=== PATIENT | male | born 1945 | race Hispanic/Latino ===

== ENCOUNTER 2019-07-20 20:35 | Emergency (ER) | payer OTHER ==
[2019-07-20] MEDS ORDERED: NA CHLORIDE 0.9% 1,000 ML ONE ×2 (20:42→21:57)
[2019-07-20 20:56] LABS: Absolute Lymphocytes (CBC) 2.1 K/uL (0.7-4.9); Basophils % 0.4 % (0-1.3); Hematocrit 46.3 % (39.6-49.0); Lymphocytes % 24.2 % (15.3-44.8); MPV 8.8 fL (7.6-11.3); RBC Red Blood Cell Count 4.98 M/uL (4.33-5.43)
[2019-07-20 21:15] LABS: Albumin 4.4 g/dL (3.4-5.0); Bilirubin Total 0.5 mg/dL (0.2-1.0); Potassium 3.3 mmol/L (3.5-5.1); Protein, Total 8.1 g/dL (6.4-8.2)
--- NOTE | 2019-07-20 21:41 | RAD REPORT ---
EXAM DESCRIPTION: US - Extremity Venous Uni Ltd - 07/20/2019 9:35 pm CLINICAL HISTORY: PAIN Leg swelling and edema. COMPARISON: No comparisons FINDINGS: Left lower extremity venous system was interrogated with Doppler technique. Normal flow, c ompressibility and augmentation was noted. There is no DVT present. IMPRESSION: No evidence of left lower extremity deep venous thrombosis.
[2019-07-20] MEDS ORDERED: POTASSIUM CL SA 10 MEQ TAB PO ONE (21:57)
[2019-07-20 23:45] LABS: Potassium 4.1 mmol/L (3.5-5.1)
--- NOTE | 2019-07-21 00:25 | ER ---
Nurse's Notes [facility] Name: Apple Howe Age: 73 yrs Sex: Male : 1945 Arrival Date: 07/20/2019 Time: 20:37 Bed 7 Private MD: Diagnosis: Dehydration;Leg cramps;Hypokalemia Presentation: 07/20 20:39 Presenting complaint: Patient states: he mowed his yard from 0900 to 1400 with out ak1 drinking any water. pt c/o upper left leg pain. Transition of care: patient was not received from another setting of care. Onset of symptoms is unknown. Risk Assessment: Do you want to hurt yourself or someone else? Patient reports no desire to harm self or others. Initial Sepsis Screen: Does the patient meet any 2 criteria? No. Patient's initial sepsis screen is negative. Does the patient have a suspected source of infection? No. Patient's initial sepsis screen is negative. Care prior to arrival: None. 20:39 Method Of Arrival: EMS: [facility] ak1 20:39 Acuity: CAROLE 3 ak1 Triage Assessment: 20:39 General: Appears in no apparent distress. Behavior is calm, cooperative. Pain: ak1 Complains of pain in left hamstring. EENT: No signs and/or symptoms were reported regarding the EENT system. 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 Gait is steady, Speech is normal. Cardiovascular: No deficits noted. Respiratory: No deficits noted. GI: No signs and/or symptoms were reported involving the gastrointestinal system. : No signs and/or symptoms were reported regarding the genitourinary system. Derm: No signs and/or symptoms reported regarding the dermatologic system. Musculoskeletal: No signs and/or symptoms reported regarding the musculoskeletal system. Historical: - Allergies: 20:39 No Known Allergies; ak1 - Home Meds: 20:39 None [Active]; ak1 - PMHx: 20:39 Hypertension; ak1 - PSHx: 20:39 Cholecystectomy; Appendectomy; ak1 - Immunization history:: Adult Immunizations unknown. - Social history:: Smoking status: unknown. - Ebola Screening: : No symptoms or risks identified at this time. Screenin:43 Abuse screen: Denies threats or abuse. Denies injuries from another. Nutritional ak1 screening: No deficits noted. Tuberculosis screening: No symptoms or risk factors identified. Fall Risk None identified. Assessment: 21:18 Reassessment: Patient appears in no apparent distress at this time. No changes from ak1 previously documented assessment. Patient and/or family updated on plan of care and expected duration. Pain level reassessed. Patient is alert, oriented x 3, equal unlabored respirations, skin warm/dry/pink. US finished imaging. pt and family informed that pt's called. 23:00 Reassessment: Patient appears in no apparent distress at this time. Patient is alert, rr5 oriented x 3, equal unlabored respirations, skin warm/dry/pink. second liter of IV fluid consumed. repeat BMP extracted. Vital Signs: 20:38 BP 191 / 99; Pulse 95; Resp 18; Temp 97.9; Pulse Ox 99% on R/A; Weight 72.57 kg (R); ak1 Height 5 ft. 3 in. (160.02 cm) (R); Pain 10/10; 21:23 BP 174 / 96; Pulse 100; Resp 18; Pulse Ox 99% on R/A; ak1 22:59 BP 164 / 93; Pulse 99; Resp 17; Pulse Ox 97% ; rr5 07/21 00:25 BP 153 / 88; Pulse 99; Resp 18; Pulse Ox 99% on R/A; ak1 07/20 20:38 Body Mass Index 28.34 (72.57 kg, 160.02 cm) ak1 ED Course: 07/20 20:37 Patient arrived in ED. ak1 20:38 Curry Man MD is Attending Physician. tw4 20:38 Arm band placed on Patient placed in an exam room, on a stretcher, on pulse oximetry, ak1 Patient notified of wait time. 20:41 Triage completed. ak1 20:43 Patient has correct armband on for positive identification. Bed in low position. Call ak1 light in reach. Side rails up X 1. Pulse ox on. NIBP on. 20:44 Fanny Rodriguez, RN is Primary Nurse. ak1 20:44 Inserted saline lock: 20 gauge in right forearm, using aseptic technique. Blood oe collected. 21:36 Extremity Venous Uni Ltd US In Process Unspecified. EDMS 21:37 Ultrasound completed. Patient tolerated well. sg3 07/21 00:26 No provider procedures requiring assistance completed. ak1 00:30 IV discontinued, intact, bleeding controlled, No redness/swelling at site. Pressure ak1 dressing applied. Administered Medications: 07/20 20:44 Drug: NS 0.9% 1000 ml Route: IV; Rate: 1 bolus; Site: right forearm; rr5 21:40 Follow up: IV Status: Completed infusion ak1 21:59 Drug: NS 0.9% 1000 ml Route: IV; Rate: 1 bolus; Site: right forearm; rr5 23:42 Follow up: IV Status: Completed infusion; IV Intake: 1000ml ak1 22:00 Not Given (Other Intervention Used): Potassium Chloride 40 mEq PO once rr5 22:00 Drug: Potassium Chloride 40 mEq Route: PO; rr5 23:40 Follow up: Response: No adverse reaction ak1 Intake: 23:42 IV: 1000ml; Total: 1000ml. ak1 Outcome: 07/21 00:23 Discharge ordered by . tw4 00:30 Discharged to home ambulatory, with family. ak1 00:30 Condition: improved 00:30 Discharge instructions given to patient, Instructed on discharge instructions, follow up and referral plans. Demonstrated understanding of instructions, follow-up care. 00:39 Patient left the ED. ak1 Signatures: Dispatcher [employer] EDMS Fanny Rodriguez, RN RN ak1 Jay Jay Leone Sarah sg3 Curry Man MD MD tw4 Chace Gilliam, RN RN rr5
--- NOTE | 2019-07-21 00:27 | EDPHYS ---
Physician Documentation [facility] Name: Apple Howe Age: 73 yrs Sex: Male : 1945 Arrival Date: 07/20/2019 Time: 20:37 Bed 7 Private MD: ED Physician Curry Man HPI: 07/20 21:48 This 73 yrs old Male presents to ER via EMS with complaints of Leg Pain. tw4 21:48 The patient presents with pain, that is acute. The complaints affect the left tw4 quadriceps, left knee and left lopez. Context: The problem was sustained at home. Onset: The symptoms/episode began/occurred today. Modifying factors: The symptoms are alleviated by nothing. the symptoms are aggravated by nothing. Associated signs and symptoms: The patient has no apparent associated signs or symptoms. Treatment prior to arrival includes: no previous treatment. Severity of symptoms: At their worst the symptoms were moderate, in the emergency department the symptoms are unchanged. The patient has not experienced similar symptoms in the past. Historical: - Allergies: 20:39 No Known Allergies; ak1 - Home Meds: 20:39 None [Active]; ak1 - PMHx: 20:39 Hypertension; ak1 - PSHx: 20:39 Cholecystectomy; Appendectomy; ak1 - Immunization history:: Adult Immunizations unknown. - Social history:: Smoking status: unknown. - Ebola Screening: : No symptoms or risks identified at this time. ROS: 21:48 Constitutional: Negative for fever, chills, and weight loss, Eyes: Negative for injury, tw4 pain, redness, and discharge, Cardiovascular: Negative for chest pain, palpitations, and edema, Respiratory: Negative for shortness of breath, cough, wheezing, and pleuritic chest pain, Abdomen/GI: Negative for abdominal pain, nausea, vomiting, diarrhea, and constipation. 21:48 MS/extremity: Positive for pain, Negative for injury or acute deformity, abrasion, bite, contusion, decreased range of motion, deformity, ecchymosis, erythema, laceration, paresthesias, puncture, rash. Exam: 21:48 Constitutional: This is a well developed, well nourished patient who is awake, alert, tw4 and in no acute distress. Head/Face: Normocephalic, atraumatic. Chest/axilla: Normal chest wall appearance and motion. Nontender with no deformity. No lesions are appreciated. Cardiovascular: Regular rate and rhythm with a normal S1 and S2. No gallops, murmurs, or rubs. Normal PMI, no JVD. No pulse deficits. Respiratory: Lungs have equal breath sounds bilaterally, clear to auscultation and percussion. No rales, rhonchi or wheezes noted. No increased work of breathing, no retractions or nasal flaring. Abdomen/GI: Soft, non-tender, with normal bowel sounds. No distension or tympany. No guarding or rebound. No evidence of tenderness throughout. Back: No spinal tenderness. No costovertebral tenderness. Full range of motion. MS/ Extremity: Pulses equal, no cyanosis. Neurovascular intact. Full, normal range of motion. Neuro: Awake and alert, GCS 15, oriented to person, place, time, and situation. Cranial nerves II-XII grossly intact. Motor strength 5/5 in all extremities. Sensory grossly intact. Cerebellar exam normal. Normal gait. Vital Signs: 20:38 BP 191 / 99; Pulse 95; Resp 18; Temp 97.9; Pulse Ox 99% on R/A; Weight 72.57 kg (R); ak1 Height 5 ft. 3 in. (160.02 cm) (R); Pain 10/10; 21:23 BP 174 / 96; Pulse 100; Resp 18; Pulse Ox 99% on R/A; ak1 22:59 BP 164 / 93; Pulse 99; Resp 17; Pulse Ox 97% ; rr5 07/21 00:25 BP 153 / 88; Pulse 99; Resp 18; Pulse Ox 99% on R/A; ak1 07/20 20:38 Body Mass Index 28.34 (72.57 kg, 160.02 cm) ak1 MDM: 07/20 20:38 Patient medically screened. tw4 21:48 Differential diagnosis: dislocation, open fracture. Data reviewed: vital signs, nurses tw4 notes, lab test result(s), CBC, white blood cell count, hemoglobin, hematocrit, platelets, electrolytes, sodium, potassium, chloride, serum bicarbonate, BUN, creatinine, serum glucose, radiologic studies, ultrasound. Data interpreted: Pulse oximetry: Interpretation: normal. Counseling: I had a detailed discussion with the patient and/or guardian regarding: the historical points, exam findings, and any diagnostic results supporting the discharge/admit diagnosis, lab results, radiology results. Special discussion: I discussed with the patient/guardian in detail that at this point there is no indication for admission to the hospital. It is understood, however, that if the symptoms persist or worsen the patient needs to return immediately for re-evaluation. 07/20 20:39 Order name: CBC with Diff; Complete Time: 21:51 tw4 07/20 21:51 Interpretation: Within normal limits. 07/20 20:39 Order name: CMP; Complete Time: 21:51 tw4 07/20 21:51 Interpretation: Normal except: K 3.3; GLUC 166; BUN 24; CRE 1.53; GFR 45. tw07/20 20:39 Order name: Extremity Venous Uni Ltd US; Complete Time: 00:18 tw4 07/21 00:18 Interpretation: No acute disease. 07/20 21:52 Order name: BMP: repeat after second bolus; Complete Time: 00:18 07/21 00:18 Interpretation: Normal except: BUN 22; GLUC 240; GFR 56. Administered Medications: 20:44 Drug: NS 0.9% 1000 ml Route: IV; Rate: 1 bolus; Site: right forearm; rr5 21:40 Follow up: IV Status: Completed infusion ak1 21:59 Drug: NS 0.9% 1000 ml Route: IV; Rate: 1 bolus; Site: right forearm; rr5 23:42 Follow up: IV Status: Completed infusion; IV Intake: 1000ml ak1 22:00 Not Given (Other Intervention Used): Potassium Chloride 40 mEq PO once rr5 22:00 Drug: Potassium Chloride 40 mEq Route: PO; rr5 23:40 Follow up: Response: No adverse reaction ak1 Disposition: 07/21/19 00:23 Discharged to Home. Impression: Dehydration, Leg cramps, Hypokalemia. - Condition is Stable. - Discharge Instructions: Dehydration, Elderly, Potassium Content of Foods, Leg Cramps, Hypokalemia, Rehydration, Elderly. - Medication Reconciliation Form, Thank You Letter, Antibiotic Education, Prescription Opioid Use form. - Follow up: Private Physician; When: Upon discharge from the Emergency Department; Reason: If symptoms return, Recheck today's complaints, Continuance of care. - Problem is new. - Symptoms have improved. Signatures: Dispatcher [employer] EDMS Fanny Rodriguez, RN RN ak1 Curry Man MD MD tw4 Chace Gilliam RN RN rr5 Corrections: (The following items were deleted from the chart) 07/21 00:23 00:23 07/21/2019 00:23 Discharged to Home. Impression: Dehydration; Leg cramps. tw4 Condition is Stable. Forms are Medication Reconciliation Form, Thank You Letter, Antibiotic Education, Prescription Opioid Use. Follow up: Private Physician; When: Upon discharge from the Emergency Department; Reason: If symptoms return, Recheck today's complaints, Continuance of care. Problem is new. Symptoms have improved. tw4 00:39 00:23 07/21/2019 00:23 Discharged to Home. Impression: Dehydration; Leg cramps; ak1 Hypokalemia. Condition is Stable. Forms are Medication Reconciliation Form, Thank You Letter, Antibiotic Education, Prescription Opioid Use. Follow up: Private Physician; When: Upon discharge from the Emergency Department; Reason: If symptoms return, Recheck today's complaints, Continuance of care. Problem is new. Symptoms have improved. tw4
[2019-07-21 01:25] VITALS: TEMP 97.9
[2019-07-21 01:29] VITALS: BP 153/88; O2SAT 99
== END 2019-07-21 00:39 | disposition home or self-care (01) ==
LOC: EDSEX 20:35 → ER 20:35
DX: E86.0 Dehydration (principal); E87.6 Hypokalemia; I10 Essential (primary) hypertension
CPT/HCPCS: 96361; 85025; 80048; 36415; 80053; 93971; 96360; 99284; J7030 ×2

== ENCOUNTER 2019-07-27 09:50 | Emergency (ER) | payer OTHER ==
--- NOTE | 2019-07-27 10:29 | ER ---
Nurse's Notes [facility] Name: Apple Howe Age: 73 yrs Sex: Male : 1945 Arrival Date: 07/27/2019 Time: 10:02 Bed 5 Private MD: Diagnosis: Pain in left leg Presentation: 07/27 10:10 Presenting complaint: Patient states: was seen here last week for the leg cramps and dx sv with dehydration and low potassium, pt reports the right leg improved but is still having leg cramps to the left calf. Transition of care: patient was not received from another setting of care. Onset of symptoms was June 2019. Risk Assessment: Do you want to hurt yourself or someone else? Patient reports no desire to harm self or others. Initial Sepsis Screen: Does the patient meet any 2 criteria? No. Patient's initial sepsis screen is negative. Does the patient have a suspected source of infection? No. Patient's initial sepsis screen is negative. Care prior to arrival: None. 10:10 Method Of Arrival: Ambulatory sv 10:10 Acuity: CAROLE 3 sv Triage Assessment: 10:12 General: Appears in no apparent distress. uncomfortable, well groomed, well developed, sv Behavior is calm, cooperative, appropriate for age. Pain: Complains of pain in left calf and left lopez. Neuro: Level of Consciousness is awake, alert, obeys commands, Oriented to person, place, time, situation, Moves all extremities. Full function Gait is steady. Respiratory: Airway is patent Respiratory effort is even, unlabored, Respiratory pattern is regular, symmetrical. Derm: Skin is pink, warm \T\ dry. Historical: - Allergies: 10:11 No Known Allergies; sv - PMHx: 10:11 Hypertension; sv - PSHx: 10:11 Cholecystectomy; Appendectomy; sv - Immunization history:: Adult Immunizations up to date. - Social history:: Smoking status: Patient/guardian denies using tobacco. - Ebola Screening: : No symptoms or risks identified at this time. - Family history:: not pertinent. Screenin:19 Abuse screen: Denies threats or abuse. Denies injuries from another. Nutritional sv screening: No deficits noted. Tuberculosis screening: No symptoms or risk factors identified. Fall Risk None identified. Vital Signs: 10:12 BP 149 / 84; Pulse 97; Resp 16; Temp 98.2; Pulse Ox 97% ; Weight 72.57 kg; Height 5 ft. sv 3 in. (160.02 cm); 10:12 Body Mass Index 28.34 (72.57 kg, 160.02 cm) sv ED Course: 10:02 Patient arrived in ED. am2 10:04 Carlos Enrique Sainz MD is Attending Physician. kennedy 10:06 Ольга Grewal RN is Primary Nurse. sv 10:11 Triage completed. sv 10:12 Arm band placed on. sv 10:19 ED physician to see patient. sv 10:19 Patient has correct armband on for positive identification. Placed in gown. Bed in low sv position. Call light in reach. Pulse ox on. NIBP on. Door closed. Head of bed elevated. Administered Medications: No medications were administered Outcome: 10:27 Discharge ordered by . kennedy 10:46 Patient left the ED. sv Signatures: Ольга Grewal RN RN Carlos Enrique Sainz MD MD cha Moreno, Amanda am2
--- NOTE | 2019-07-27 10:29 | EDPHYS ---
Physician Documentation [facility] Name: Apple Howe Age: 73 yrs Sex: Male : 1945 Arrival Date: 07/27/2019 Time: 10:02 Bed 5 Private MD: ED Physician Carlos Enrique Sainz HPI: 07/27 10:23 This 73 yrs old Male presents to ER via Ambulatory with complaints of Leg Pain.kennedy 10:23 The patient presents with pain. The complaints affect the posterior aspect of right kennedy knee. Context: The problem was sustained at an unknown site. Onset: The symptoms/episode began/occurred 1 week(s) ago. Modifying factors: The symptoms are alleviated by nothing. the symptoms are aggravated by nothing. Associated signs and symptoms: The patient has no apparent associated signs or symptoms. Treatment prior to arrival includes: no previous treatment. Historical: - Allergies: 10:11 No Known Allergies; sv - PMHx: 10:11 Hypertension; sv - PSHx: 10:11 Cholecystectomy; Appendectomy; sv - Immunization history:: Adult Immunizations up to date. - Social history:: Smoking status: Patient/guardian denies using tobacco. - Ebola Screening: : No symptoms or risks identified at this time. - Family history:: not pertinent. ROS: 10:23 Constitutional: Negative for fever, chills, and weight loss, Eyes: Negative for injury, kennedy pain, redness, and discharge, ENT: Negative for injury, pain, and discharge, Neck: Negative for injury, pain, and swelling, Cardiovascular: Negative for chest pain, palpitations, and edema, Respiratory: Negative for shortness of breath, cough, wheezing, and pleuritic chest pain, Abdomen/GI: Negative for abdominal pain, nausea, vomiting, diarrhea, and constipation, Back: Negative for injury and pain, : Negative for injury, bleeding, discharge, and swelling, Skin: Negative for injury, rash, and discoloration, Neuro: Negative for headache, weakness, numbness, tingling, and seizure, Psych: Negative for depression, anxiety, suicide ideation, homicidal ideation, and hallucinations, Allergy/Immunology: Negative for hives, rash, and allergies, Endocrine: Negative for neck swelling, polydipsia, polyuria, polyphagia, and marked weight changes, Hematologic/Lymphatic: Negative for swollen nodes, abnormal bleeding, and unusual bruising. 10:23 MS/extremity: Positive for pain, of the left leg. Exam: 10:23 Constitutional: This is a well developed, well nourished patient who is awake, alert, kennedy and in no acute distress. Head/Face: Normocephalic, atraumatic. Eyes: Pupils equal round and reactive to light, extra-ocular motions intact. Lids and lashes normal. Conjunctiva and sclera are non-icteric and not injected. Cornea within normal limits. Periorbital areas with no swelling, redness, or edema. ENT: Nares patent. No nasal discharge, no septal abnormalities noted. Tympanic membranes are normal and external auditory canals are clear. Oropharynx with no redness, swelling, or masses, exudates, or evidence of obstruction, uvula midline. Mucous membranes moist. Neck: Trachea midline, no thyromegaly or masses palpated, and no cervical lymphadenopathy. Supple, full range of motion without nuchal rigidity, or vertebral point tenderness. No Meningismus. Chest/axilla: Normal chest wall appearance and motion. Nontender with no deformity. No lesions are appreciated. Cardiovascular: Regular rate and rhythm with a normal S1 and S2. No gallops, murmurs, or rubs. Normal PMI, no JVD. No pulse deficits. Respiratory: Lungs have equal breath sounds bilaterally, clear to auscultation and percussion. No rales, rhonchi or wheezes noted. No increased work of breathing, no retractions or nasal flaring. Abdomen/GI: Soft, non-tender, with normal bowel sounds. No distension or tympany. No guarding or rebound. No evidence of tenderness throughout. Back: No spinal tenderness. No costovertebral tenderness. Full range of motion. Skin: Warm, dry with normal turgor. Normal color with no rashes, no lesions, and no evidence of cellulitis. Neuro: Awake and alert, GCS 15, oriented to person, place, time, and situation. Cranial nerves II-XII grossly intact. Motor strength 5/5 in all extremities. Sensory grossly intact. Cerebellar exam normal. Normal gait. Psych: Awake, alert, with orientation to person, place and time. Behavior, mood, and affect are within normal limits. 10:23 Musculoskeletal/extremity: Extremities: all appear grossly normal, with no appreciated pain with palpation, ROM: intact in all extremities, full active range of motion, full passive range of motion, Circulation is intact in all extremities. Sensation intact. Compartment Syndrome exam of affected extremity: is normal. DVT Exam: No signs of deep vein thrombosis. no pain, no swelling, no tenderness, negative Homans' sign noted on exam, no appreciated bluish discoloration, no erythema, no increased warmth. Vital Signs: 10:12 BP 149 / 84; Pulse 97; Resp 16; Temp 98.2; Pulse Ox 97% ; Weight 72.57 kg; Height 5 ft. sv 3 in. (160.02 cm); 10:12 Body Mass Index 28.34 (72.57 kg, 160.02 cm) sv MDM: 10:04 Patient medically screened. [facility] [place] 10:23 Data reviewed: vital signs, nurses notes, lab test result(s), radiologic studies, kennedy ultrasound. Administered Medications: No medications were administered Disposition: 07/27/19 10:27 Discharged to Home. Impression: Pain in left leg. - Condition is Stable. - Discharge Instructions: Potassium Content of Foods, Musculoskeletal Pain, Pain Without a Known Cause. - Medication Reconciliation Form, Thank You Letter, Antibiotic Education, Prescription Opioid Use form. - Follow up: Private Physician; When: 2 - 3 days; Reason: Recheck today's complaints, Continuance of care, Re-evaluation by your physician. - Problem is new. - Symptoms have improved. Signatures: Ольга Grewal RN RN sv Carlos Enrique Sainz MD MD cha Corrections: (The following items were deleted from the chart) 10:46 10:27 07/27/2019 10:27 Discharged to Home. Impression: Pain in left leg. Condition is sv Stable. Discharge Instructions: Potassium Content of Foods. Forms are Medication Reconciliation Form, Thank You Letter, Antibiotic Education, Prescription Opioid Use. Follow up: Private Physician; When: 2 - 3 days; Reason: Recheck today's complaints, Continuance of care, Re-evaluation by your physician. Problem is new. Symptoms have improved. kennedy
[2019-07-27 10:52] VITALS: BP 149/84; TEMP 98.2; O2SAT 97
== END 2019-07-27 10:46 | disposition home or self-care (01) ==
LOC: ER 09:50
DX: M79.605 Pain in left leg (principal); I10 Essential (primary) hypertension
CPT/HCPCS: 99283

== ENCOUNTER 2020-04-24 17:48 | Emergency (ER) | payer OTHER ==
--- OUTSIDE RECORDS SUMMARY | 2020-04-24 17:51 | XMS REPORT | Continuity of Care Document ---
:1945 Author Organization [facility] t Address [address] [place] [address] [place] [id number] Care Team Providers Name Role Phone Unavailable Unavailable Unavailable Problems This patient has no known problems. Allergies, Adverse Reactions, Alerts This patient has no known allergies or adverse reactions. Medications This patient has no known medications. Procedures This patient has no known procedures. Results This patient has no known results.
--- NOTE | 2020-04-24 18:10 | RAD REPORT ---
EXAM DESCRIPTION: CT - Ct Stroke Brain Wo Cont - 04/24/2020 6:00 pm CLINICAL HISTORY: LEFT FACIAL DROOP Headache, drowsiness, CVA COMPARISON: No comparisons TECHNIQUE: All CT scans are performed using dose optimization technique as appropriate and may inclu de automated exposure control or mA/KV adjustment according to patient size. FINDINGS: No intracranial hemorrhage, hydrocephalus or extra-axial fluid collection.Mild generalized brain atrophy is present with mild periventricular and deep white matter chronic microvascular ische zachery changes.No areas of brain edema or evidence of midline shift. The paranasal sinuses and mastoids are clear. The calvarium is intact. Vertebral atherosclerosis. IMPRESSION: No acute intracranial abnormality. If there is continued clinical concern for CVA, MR i maging of the brain would be recommended. The findings were discussed with Dr. Martins On 04/24/2020 at 6:05 p.m. by telephone.
[2020-04-24] MEDS ORDERED: ASPIRIN 81 MG CHEWABLE TABLET ONE (18:31)
[2020-04-24] MEDS ORDERED: FOLIC ACID 5 MG/ML VIAL ONE (18:33)
--- NOTE | 2020-04-24 18:34 | RAD REPORT ---
EXAM DESCRIPTION: RAD - Chest Single View - 04/24/2020 6:26 pm CLINICAL HISTORY: slurred speech Chest pain. COMPARISON: <Comparisons> FINDINGS: Portable technique limits examination quality. The lungs are mildly emphysematous but grossly clear. The heart is normal in size. No displaced fract ures. IMPRESSION: Mild COPD.
[2020-04-24 18:38] LABS: Absolute Lymphocytes (CBC) 1.6 K/uL (0.7-4.9); Basophils % 0.4 % (0-1.3); Hematocrit 46.6 % (39.6-49.0); Lymphocytes % 21.3 % (15.3-44.8); MPV 9.4 fL (7.6-11.3)
[2020-04-24 18:39] LABS: Protime INR 0.99
[2020-04-24 18:51] LABS: BUN Blood Urea Nitrogen 14 mg/dL (7-18); Bicarbonate 28 mmol/L (21-32); Glucose Level 204 mg/dL (74-106); Potassium 3.4 mmol/L (3.5-5.1); Sodium Level 139 mmol/L (136-145); Troponin (Emerg Dept Use Only) < 0.02 ng/mL (0.0-0.045)
--- NOTE | 2020-04-24 19:02 | EDPHYS ---
Physician Documentation [facility] Name: Apple Howe Age: 74 yrs Sex: Male : 1945 Arrival Date: 04/24/2020 Time: 17:49 Bed 5 Private MD: ED Physician Dieter Martins HPI: 04/24 18:15 This 74 yrs old Male presents to ER via Wheelchair with complaints of Facial cp Droop. 18:15 The patient presents to the emergency department with left side facial droop and cp slurring of words. Onset: The symptoms/episode began/occurred today, approximately 1200. Context: occurred at home. Associated signs and symptoms: Pertinent negatives: altered mental status, fever, headache, paresthesias, syncope, visual field changes. Severity of symptoms: in the emergency department the symptoms have improved mildly. Patient's baseline: Neuro: alert and fully oriented, Motor: no deficits, Ambulation: walks without assistance, Speech: normal. Current symptoms: left side facial droop, mild slurring of speech. 18:15 The patient has not experienced similar symptoms in the past. cp Historical: - Allergies: 18:22 No Known Allergies; em - Home Meds: 18:13 None [Active]; em - PMHx: 18:13 Hypertension; em - PSHx: 18:13 Cholecystectomy; Appendectomy; em - Immunization history:: Adult Immunizations up to date. - Social history:: Smoking status: Patient denies any tobacco usage or history of. ROS: 18:17 Constitutional: Negative for body aches, chills, fever, poor PO intake. cp 18:17 Eyes: Negative for injury, pain, redness, and discharge. cp 18:17 Neck: Negative for pain with movement, pain at rest, stiffness. 18:17 Cardiovascular: Negative for chest pain, edema, palpitations. 18:17 Respiratory: Negative for cough, shortness of breath, wheezing. 18:17 Abdomen/GI: Negative for abdominal pain, nausea, vomiting, and diarrhea. 18:17 Back: Negative for pain at rest, pain with movement. 18:17 Neuro: Positive for left side facial droop and slurring of speech, Negative for altered mental status, headache, syncope. 18:17 All other systems are negative. Exam: 18:20 Constitutional: The patient appears in no acute distress, alert, awake, cp non-diaphoretic, well developed, well nourished. 18:20 Head/face: Noted is mild left side facial droop. cp 18:20 Eyes: Periorbital structures: appear normal, Pupils: equal, round, and reactive to light and accomodation, Extraocular movements: intact throughout, Conjunctiva: normal, no exudate, no injection, Sclera: no appreciated abnormality, Lids and lashes: appear normal, bilaterally, Visual mitchell: are intact. 18:20 ENT: External ear(s): are unremarkable, Nose: is normal, Posterior pharynx: is normal, airway is patent, no erythema, no exudate. 18:20 Neck: ROM/movement: is normal, is supple, without pain, no range of motions limitations, no nuchal rigidity. 18:20 Chest/axilla: Inspection: normal, Palpation: is normal, no crepitus, no tenderness. 18:20 Cardiovascular: Rate: tachycardic, Rhythm: regular, Heart sounds: murmur, not appreciated, Edema: is not appreciated, JVD: is not appreciated. 18:20 Respiratory: the patient does not display signs of respiratory distress, Respirations: normal, no use of accessory muscles, no retractions, labored breathing, is not present, Breath sounds: are clear throughout, no decreased breath sounds. 18:20 Abdomen/GI: Inspection: abdomen appears normal, Bowel sounds: active, all quadrants, Palpation: abdomen is soft and non-tender, in all quadrants. 18:20 Skin: no rash present. 18:20 Neuro: Orientation: to person, place \T\ time. Mentation: is normal, Cerebellar function: Romberg testing is negative, normal finger to nose testing, Motor: moves all fours, strength is normal, Sensation: no obvious gross deficits. 18:33 ECG was reviewed by the Attending Physician. cp Vital Signs: 18:00 BP 168 / 107; Pulse 103; Resp 18; Temp 97.8(O); Pulse Ox 99% on R/A; Weight 72.57 kg; em Height 5 ft. 3 in. (160.02 cm); Pain 0/10; 18:27 BP 168 / 107; Pulse 101; Resp 19; Pulse Ox 99% ; jl7 19:26 BP 151 / 101; Pulse 96; Resp 19; Pulse Ox 99% ; ea 20:00 BP 145 / 99; Pulse 90; Resp 18; Pulse Ox 99% ; ea 18:00 Body Mass Index 28.34 (72.57 kg, 160.02 cm) em NIH Stroke Scale Scores: 18:00 NIHSS Score: 2 em 18:18 NIHSS Score: 2 cp MDM: 18:05 ED course: CT head no acute findings per Dr. Omalley.. rn 18:05 ED course: Pt outside TPA window, as symptoms were present at noon, now atleast 6 hours rn after onset. . 18:31 Patient medically screened. 18:47 Physician consultation: was contacted at 18:47, regarding regarding transfer, to [facility]. patient's condition, DR Erazo, neurologist, requests patient to be transferred to services of hospitalist. 19:00 Data reviewed: vital signs, nurses notes, lab test result(s), EKG, radiologic studies, CT scan, plain films, I have discussed the patient's presentation/case with the attending Emergency Department Physician; and as a result, I will administer potassium, orally, transfer patient. 04/24 18:03 Order name: Troponin (emerg Dept Use Only); Complete Time: 18:56 04/24 18:03 Order name: Basic Metabolic Panel; Complete Time: 18:56 04/24 18:56 Interpretation: Normal except: K 3.4; GLUC 204; GFR 68. 04/24 18:03 Order name: CBC with Diff; Complete Time: 18:46 04/24 18:03 Order name: Protime (+inr); Complete Time: 18:46 04/24 18:03 Order name: Ptt, Activated; Complete Time: 18:46 04/24 18:19 Order name: Glucose, Ancillary Testing; Complete Time: 18:46 [facility] 04/24 17:55 Order name: Ct Stroke Brain Wo Cont; Complete Time: 18:46 [facility] 04/24 18:03 Order name: Stroke CXR 1 View; Complete Time: 18:46 04/24 18:03 Order name: EKG; Complete Time: 18:04 04/24 18:03 Order name: Accucheck; Complete Time: 18:20 04/24 18:03 Order name: Cardiac monitoring; Complete Time: 18:26 rn 04/24 18:03 Order name: EKG - Nurse/Tech; Complete Time: 18: rn 04/24 18:03 Order name: IV Saline Lock; Complete Time: : rn 04/24 18:03 Order name: Labs collected and sent; Complete Time: : rn 04/24 18:03 Order name: NPO; Complete Time: 18: rn 04/24 18:03 Order name: O2 Per Protocol; Complete Time: rn 04/24 18:03 Order name: O2 Sat Monitoring; Complete Time: : rn 04/24 18:03 Order name: Stroke Swallow Screen; Complete Time: 18: rn EC:33 Rate is 100 beats/min. Rhythm is regular. WA interval is normal. QRS interval is cp normal. QT interval is normal. T waves are Flattened in lead aVL. Interpreted by me. Reviewed by me. Administered Medications: 18: Drug: foLIC Acid 1 mg Route: IVPB; Site: right antecubital; jl7 19:25 Follow up: IV Status: Completed infusion mg2 18:26 Drug: Aspirin 81 mg Route: PO; jl7 19:25 Follow up: Response: No adverse reaction; Marked relief of symptoms mg2 19:34 Drug: Potassium Effervescent Tablet 25 mEq Route: PO; mg2 20:09 Not Given (Physician Discretion): Simvastatin 40 mg PO once ea Disposition: 19:15 Chart complete. 04/25 07:03 Co-signature as Attending Physician, Dieter Martins MD. rn Disposition: 04/24/20 19:01 Transfer ordered to [facility]. Diagnosis are Speech disturbances, not elsewhere classified, Left side facial droop. - Reason for transfer: Higher level of care. - Accepting physician is DR Cullen. - Condition is Stable. - Problem is new. - Symptoms have improved. NIH Stroke Scale - NIH Stroke Score Date: 04/24/2020 Time: 18:00 Total Score = 2 1a. Level of Consciousness (LOC) - 0(Alert) 1b. Level of Consciousness (LOC) (Year \T\ Age) - 0(Both) 1c. LOC Commands (Open \T\ Closes Eyes/Neon Molder) - 0(Both) 2. Best Gaze (Lateral Gaze Paresis) - 0(Normal) 3. Visual Field Loss - 0(No visual loss) 4. Facial Palsy - 1(Minor Paralysis) 5a. Left Arm: Motor (10-second hold) - 0(No drift) 5b. Right Arm: Motor (10-second hold) - 0(No drift) 6a. Left Leg: Motor (5-second hold - always test supine) - 0(No drift) 6b. Right Leg: Motor (5-second hold - always test supine) - 0(No drift) 7. Limb Ataxia (finger/nose \T\ heel/lopez - test with eyes open) - 0(Absent) 8. Sensory Loss (pinprick arms/legs/face) - 0(Normal) 9. Best Language: Aphasia (description/naming/reading) - 0(No aphasia) 10. Dysarthria (speech clarity - read or repeat words) - 1(Mild to Moderate) 11. Extinction and Inattention (visual/tactile/auditory/spatial/personal) - 0(No abnormality) Initials: NIH Stroke Scale - NIH Stroke Score Date: 04/24/2020 Time: 18:18 Total Score = 2 1a. Level of Consciousness (LOC) - 0(Alert) 1b. Level of Consciousness (LOC) (Year \T\ Age) - 0(Both) 1c. LOC Commands (Open \T\ Closes Eyes/Neon Molder) - 0(Both) 2. Best Gaze (Lateral Gaze Paresis) - 0(Normal) 3. Visual Field Loss - 0(No visual loss) 4. Facial Palsy - 1(Minor Paralysis) 5a. Left Arm: Motor (10-second hold) - 0(No drift) 5b. Right Arm: Motor (10-second hold) - 0(No drift) 6a. Left Leg: Motor (5-second hold - always test supine) - 0(No drift) 6b. Right Leg: Motor (5-second hold - always test supine) - 0(No drift) 7. Limb Ataxia (finger/nose \T\ heel/lopez - test with eyes open) - 0(Absent) 8. Sensory Loss (pinprick arms/legs/face) - 0(Normal) 9. Best Language: Aphasia (description/naming/reading) - 0(No aphasia) 10. Dysarthria (speech clarity - read or repeat words) - 1(Mild to Moderate) 11. Extinction and Inattention (visual/tactile/auditory/spatial/personal) - 0(No abnormality) Initials: cp Signatures: Dispatcher [employer] EDKS Sid Pascual, RN RN Dieter Gonzalez MD MD rn Page, Corey, PA PA cp Saleem Cyr RN RN jl7 Sallie Roblero RN RN ea Gardose, Michele, RN RN mg2 Corrections: (The following items were deleted from the chart) 04/24 18:13 18:04 CT-STROKE BRAIN W/O CONTRAST+CT.RAD.BRZ ordered. EDKS EDKS 18:49 18:48 The patient has not experienced similar symptoms in the past, cp cp 20:10 19:01 04/24/2020 19:01 Transfer ordered to [facility]. Diagnosis is Speech disturbances, not elsewhere classified; Left side facial droop. Reason for transfer: Higher level of care. Accepting physician is DR Cullen. Condition is Stable. Problem is new. Symptoms have improved. cp
--- NOTE | 2020-04-24 19:02 | ER ---
Nurse's Notes [facility] Name: Apple Howe Age: 74 yrs Sex: Male : 1945 Arrival Date: 04/24/2020 Time: 17:49 Bed 5 Private MD: Diagnosis: Speech disturbances, not elsewhere classified;Left side facial droop Presentation: 04/24 17:50 Chief complaint: Patient states: My face on the L side started drooping at 1200 pm more ca1 or less and slurring of speech. Drooping on L side of face noted and slurring of speech at registration. 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 No arm drift. A\\T\\Ox4. 17:50 Method Of Arrival: Wheelchair ca1 17:50 Acuity: CAROLE 2 ca1 18:00 Coronavirus screen: Proceed with normal triage. Patient denies a cough. Patient denies em shortness of breath or difficulty breathing. Patient denies measured and/or subjective temperature greater than 100.4F prior to today's visit. Patient denies travel on a cruise ship or to a country the [facility] currently lists as an affected area. Patient denies contact with known and/or suspected case of COVID-19. Ebola Screen: Patient negative for fever greater than or equal to 101.5 degrees Fahrenheit, and additional compatible Ebola Virus Disease symptoms Patient denies exposure to infectious person. Patient denies travel to an Ebola-affected area in the 21 days before illness onset. No symptoms or risks identified at this time. 18:00 An acute neurological deficit is present. The patient has been moved to a treatment em area. Pre-hospital glucose is not applicable to this patient. Initial Sepsis Screen: Does the patient meet any 2 criteria? No. Patient's initial sepsis screen is negative. Does the patient have a suspected source of infection? No. Patient's initial sepsis screen is negative. Risk Assessment: Do you want to hurt yourself or someone else? Patient reports no desire to harm self or others. Onset of symptoms was April 24, 2020 at 12:00. Triage Assessment: 18:13 The onset of the patients symptoms was April 24, 2020 at 12:00. em Stroke Activation: Symptom onset > 6 hours Physician: Stroke Attending; Name: ; Notified At: ; Arrived At: Physician: Chief Stroke Resident; Name: ; Notified At: ; Arrived At: Physician: Stroke Resident; Name: ; Notified At: ; Arrived At: Physician: ED Attending; Name: ; Notified At: 17:51; Arrived At: Physician: ED Resident; Name: ; Notified At: ; Arrived At: Historical: - Allergies: 18:22 No Known Allergies; em - Home Meds: 18:13 None [Active]; em - PMHx: 18:13 Hypertension; em - PSHx: 18:13 Cholecystectomy; Appendectomy; em - Immunization history:: Adult Immunizations up to date. - Social history:: Smoking status: Patient denies any tobacco usage or history of. Screenin:00 Abuse screen: Denies threats or abuse. Nutritional screening: No deficits noted. em Tuberculosis screening: No symptoms or risk factors identified. Fall Risk None identified. Assessment: 18:00 T-PA (Activase) Screening: Contraindications: Patient reports onset of signs and em symptoms of stroke greater than 6 hours ago: Yes. 18:00 VAN Scoring: Arm Drift: Patients demonstrates NO arm weakness. Patient is VAN Negative. em Patient has been NPO before screening. The patient is alert, and able to follow commands. The patient exhibits slurred or garbled speech. Provider notified of the indication for Speech Therapy consult. The patient is not exhibiting difficulty speaking. The patient does not exhibit difficulty understanding words. The patient is able to swallow own secretions with no drooling or need for suction. Patient tolerated one teaspoon of water. No drooling, immediate coughing, gurgling, or clearing of the throat was noted. The patient tolerated 90mL of water. No drooling, immediate coughing, gurgling, or clearing of the throat was noted. The patient passed the bedside swallow screening. Oral medications may be given as ordered. Contact Physician for further diet orders. Provider notified of bedside swallow screening results: Dieter Martins MD. General: Appears in no apparent distress. comfortable, Behavior is calm, cooperative, appropriate for age, Denies fever. Pain: Denies pain. Neuro: Level of Consciousness is awake, alert, obeys commands, Oriented to person, place, time, situation, Appropriate for age Sightseeing Guide are equal bilaterally Moves all extremities. Speech is slurred, Facial droop on left, Pupils are PERRLA, Intact Reports weakness in left hand Denies headache. Cardiovascular: Capillary refill < 3 seconds Patient's skin is warm and dry. Rhythm is regular. Respiratory: Airway is patent Respiratory effort is even, unlabored, Respiratory pattern is regular, symmetrical. GI: Patient currently denies nausea, vomiting. Derm: Skin is intact, is healthy with good turgor, Skin is pink, warm \\T\\ dry. Musculoskeletal: Capillary refill < 3 seconds, Range of motion: intact in all extremities. 19:39 Reassessment: Patient appears in no apparent distress at this time. Patient and/or mg2 family updated on plan of care and expected duration. Pain level reassessed. Patient is alert, oriented x 3, equal unlabored respirations, skin warm/dry/pink. 19:43 Reassessment: report given to Elmira Mejia of [facility] [address]. mg2 20:09 Reassessment: Patient and/or family updated on plan of care and expected duration. Pain ea level reassessed. Patient is alert, oriented x 3, equal unlabored respirations, skin warm/dry/pink. Report given to [facility], pt left ED via stretcher tolerating well. 22:40 Reassessment: pt on phone requesting information about a transfer for her sg because her brother in law who was with the patient at the time of transfer told her that he was being admitted. Educated pt family on s/s of stroke and need for further assessment by a specialist and that is the reason for transfer to a facility for higher level of care. pt stated that she will attempt to contact [facility] in the medical center for further guidance. phone call is ended. Vital Signs: 18:00 BP 168 / 107; Pulse 103; Resp 18; Temp 97.8(O); Pulse Ox 99% on R/A; Weight 72.57 kg; em Height 5 ft. 3 in. (160.02 cm); Pain 0/10; 18:27 BP 168 / 107; Pulse 101; Resp 19; Pulse Ox 99% ; jl7 19:26 BP 151 / 101; Pulse 96; Resp 19; Pulse Ox 99% ; ea 20:00 BP 145 / 99; Pulse 90; Resp 18; Pulse Ox 99% ; ea 18:00 Body Mass Index 28.34 (72.57 kg, 160.02 cm) em NIH Stroke Scale Scores: 18:00 NIHSS Score: 2 em 18:18 NIHSS Score: 2 cp ED Course: 17:49 Patient arrived in ED. as 18:00 Ct Stroke Brain Wo Cont In Process Unspecified. EDMS 18:00 Patient has correct armband on for positive identification. Placed in gown. Bed in low em position. Call light in reach. Side rails up X2. classroom monitor on. Pulse ox on. NIBP on. 18:05 Triage completed. ca1 18:05 Initial lab(s) drawn, by me, sent to lab. Inserted saline lock: 20 gauge in right em antecubital area, using aseptic technique. Blood collected. 18:09 Carlos Enrique Silva PA is PHCP. cp 18:09 Dieter Martins MD is Attending Physician. cp 18:10 Sid Pascual, BLANCA is Primary Nurse. em 18:14 Arm band placed on. em 18:26 Stroke CXR 1 View In Process Unspecified. EDMS 18:32 EKG done, by ED staff, reviewed by Carlos Enrique GIRON. dh3 18:39 spoke with [facility] to initiate transfer. ar5 18:[address] Erazo. ar5 18:[address] Cullen. ar5 19:13 Rosalee Mainor gave acceptance. Going to [facility] [address]. Report call ar5 [phone]. 19:25 No provider procedures requiring assistance completed. Patient transferred, IV remains ea in place. Administered Medications: 18:26 Drug: foLIC Acid 1 mg Route: IVPB; Site: right antecubital; jl7 19:25 Follow up: IV Status: Completed infusion mg2 18:26 Drug: Aspirin 81 mg Route: PO; jl7 19:25 Follow up: Response: No adverse reaction; Marked relief of symptoms mg2 19:34 Drug: Potassium Effervescent Tablet 25 mEq Route: PO; mg2 20:09 Not Given (Physician Discretion): Simvastatin 40 mg PO once ea Outcome: 19:01 ER care complete, transfer ordered by . cp 19:26 Instructed on the need for transfer, Demonstrated understanding of instructions. ea 20:10 Transferred by ground EMS to [facility], Transfer form completed. ea 20:10 Condition: stable 20:10 Patient left the ED. NIH Stroke Scale - NIH Stroke Score Date: 04/24/2020 Time: 18:00 Total Score = 2 1a. Level of Consciousness (LOC) - 0(Alert) 1b. Level of Consciousness (LOC) (Year \\T\\ Age) - 0(Both) 1c. LOC Commands (Open \\T\\ Closes Eyes/Creche Attendant) - 0(Both) 2. Best Gaze (Lateral Gaze Paresis) - 0(Normal) 3. Visual Field Loss - 0(No visual loss) 4. Facial Palsy - 1(Minor Paralysis) 5a. Left Arm: Motor (10-second hold) - 0(No drift) 5b. Right Arm: Motor (10-second hold) - 0(No drift) 6a. Left Leg: Motor (5-second hold - always test supine) - 0(No drift) 6b. Right Leg: Motor (5-second hold - always test supine) - 0(No drift) 7. Limb Ataxia (finger/nose \\T\\ heel/lopez - test with eyes open) - 0(Absent) 8. Sensory Loss (pinprick arms/legs/face) - 0(Normal) 9. Best Language: Aphasia (description/naming/reading) - 0(No aphasia) 10. Dysarthria (speech clarity - read or repeat words) - 1(Mild to Moderate) 11. Extinction and Inattention (visual/tactile/auditory/spatial/personal) - 0(No abnormality) Initials: NIH Stroke Scale - NIH Stroke Score Date: 04/24/2020 Time: 18:18 Total Score = 2 1a. Level of Consciousness (LOC) - 0(Alert) 1b. Level of Consciousness (LOC) (Year \\T\\ Age) - 0(Both) 1c. LOC Commands (Open \\T\\ Closes Eyes/Creche Attendant) - 0(Both) 2. Best Gaze (Lateral Gaze Paresis) - 0(Normal) 3. Visual Field Loss - 0(No visual loss) 4. Facial Palsy - 1(Minor Paralysis) 5a. Left Arm: Motor (10-second hold) - 0(No drift) 5b. Right Arm: Motor (10-second hold) - 0(No drift) 6a. Left Leg: Motor (5-second hold - always test supine) - 0(No drift) 6b. Right Leg: Motor (5-second hold - always test supine) - 0(No drift) 7. Limb Ataxia (finger/nose \\T\\ heel/lopez - test with eyes open) - 0(Absent) 8. Sensory Loss (pinprick arms/legs/face) - 0(Normal) 9. Best Language: Aphasia (description/naming/reading) - 0(No aphasia) 10. Dysarthria (speech clarity - read or repeat words) - 1(Mild to Moderate) 11. Extinction and Inattention (visual/tactile/auditory/spatial/personal) - 0(No abnormality) Initials: cp Signatures: Dispatcher [employer] Edison Galvez RN RN sg Sid Pascual RN RN Alexa Ayala Corey, PA PA cp Leal, Jahala, RN RN jl7 Shaneka Zhao 3 Sallie Roblero RN RN ea Gardose, Michele, RN RN mg2 Robles, Autumn ar5 Stephany Blum RN RN ca1 Corrections: (The following items were deleted from the chart) 20:00 20:00 done with Hospotalist bianca valenzuela 20:02 18:[address] Castro [email or web address]
[2020-04-24] MEDS ORDERED: POTASSIUM 25 MEQ EFFERV TAB ONE (19:18)
[2020-04-24 20:32] VITALS: TEMP 97.8; O2SAT 99
[2020-04-24 20:36] VITALS: BP 145/99
--- NOTE | 2020-04-25 10:18 | EKG ---
Test Date: 2020-04-24 Test Time: 18:25:48 Supervisor Grips: OLIVIA MEASUREMENT RESULTS: Intervals: Rate: 100 OH: 152 QRSD: 92 QT: 340 QTc: 438 [place]: P: 45 OH: 152 QRS: 8 T: 10 INTERPRETIVE STATEMENTS: Normal sinus rhythm Nonspecific ST and T wave abnormality Abnormal ECG No previous ECG available for comparison Electronically Signed On 04-25-20 10:17:50 CDT by Wiley Braxton
== END 2020-04-24 20:10 | disposition short-term general hospital (02) ==
LOC: ER 17:48
DX: R29.810 Facial weakness (principal); I10 Essential (primary) hypertension
CPT/HCPCS: 36415; 70450; 71045; 80048; 82947; 84484; 85025; 85610; 85730; 93005; 96365; 99285

== ENCOUNTER 2022-01-31 17:27 | Emergency (ER) | payer OTHER ==
--- OUTSIDE RECORDS SUMMARY | 2022-01-31 17:31 | XMS REPORT | Continuity of Care Document ---
:1945 Author Organization [facility] t Address [address] [place] [address] Care Team Providers Name Role Phone Andrew Sathya Gusman Attending Clinician Unavailable ARNEL LEBRON Attending Clinician Unavailable MYRTLE Attending Clinician Unavailable EMILEE PAREDES Attending Clinician Unavailable Jessi GARSIA Attending Clinician Doctor Unassigned, Name Attending Clinician Unavailable Prashant RIOS Attending Clinician Gabriele Reid DO Attending Clinician Gabriele REID Attending Clinician Unavailable Elan_Sunita_SHOSHANA Attending Clinician Unavailable ARNEL LEBRON Admitting Clinician Unavailable MYRTLE Admitting Clinician Unavailable Jessi GARSIA Admitting Clinician ELLIE Admitting Clinician Unavailable Mackenzie Admitting Clinician Unavailable Payers Payer Name Policy Type Policy Number Effective Date Expiration Date Jamar [place] - [id number] 2019 [employer] 00:00:00 (MEDICARE REPLACEMENT/ADVANT AGE - HMO) [place]: [id number] 2011 [employer] 00:00:00 - [facility] Problems Condition Condition Condition Status Onset Resolution Last Treating Co mments Source Name Details Category Date Date Treatment Clinician Date Paralysis Paralysis Problem Active 2019- [place] [facility] Regular Regular Problem Active 2019- [place] astigmatis Astigmatis 1-24 da m m [facility] Presbyopia Presbyopia Problem Active 2020-1 M [place] 1-24 da [facility] Eye Eye Problem Active 2019- [place] disorder Disorder 1-24 da screening Screening 00:00: [facility] copyist [facility] Bilateral Bilateral Problem Active 2019- [place] age-relate Age-relate 1-24 da d nuclear d Nuclear 00:00: [facility] copyist cataracts Cataracts 00 al [facility] Diabetes Diabetes Problem Active 2020-0 [place] mellitus Mellitus 9- da 00:00: [facility] Hypertensi Hypertensi Problem Active 2020-0 M [place] ve ve 9 da disorder Disorder 00:00: [facility] Acute Acute Disease Active 2020-0 Univers confusion confusion 8-15 ity of 00:00: [address] 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 6-27 da accident Accident 00:00: [facility] Allergies, Adverse Reactions, Alerts Allergy Allergy Status Severity Reaction(s) Onset Inactive Treating Comm ents Source Name Type Date Date Clinician NO KNOWN Allergy Active [facility] ALLERGIE S NO KNOWN Drug Active Univers ALLERGIE Class ity of S [facility] Social History Social Habit Start Date Stop Date Quantity Comments Source Exposure to Not sure [facility] SARS-CoV-2 (event) Medica l Branch [facility] 2020-06-13 2020-06-13 8 [facility] Education 00:00:00 00:00:00 Medical Branch History SDCO 2020-06-12 2020-06-12 4 [facility] Financial 00:00:00 00:00:00 Medical Branch History [facility] Food 2020-06-12 2020-06-12 1 Univers ity [facility] Worry 00:00:00 00:00:00 Medical Branch History [facility] Food 2020-06-12 2020-06-12 1 Univers ity [facility] Scarcity 00:00:00 00:00:00 Medical Branch History [facility] 2020-06-12 2020-06-12 2 [facility] Transport Med 00:00:00 00:00:00 Medical Bra nch History [facility] 2020-06-12 2020-06-12 2 [facility] Transport Non-Med 00:00:00 00:00:00 Medical Branch Smoking Status Start Date Stop Date Source Never Smoker [facility] Unknown if ever smoked [facility] Medications Ordered Filled Start Stop Current Ordering Indication Dosage Frequency Signature Comments Components Source Medication Medication Date Date Medication? Clinician (SIG) Name Name aspirin 81 0 Yes [id number] 81mg Take 1 Univers mg chewable 8-21 tablet by ity of tablet 00:00: mouth [place] 00 daily. Medical Branch aspirin 81 2019-0 Yes [id number] 81mg Take 1 Univers mg chewable 8-21 tablet by ity of tablet 00:00: mouth [place] 00 daily. Medical Branch aspirin 81 2020-0 Yes [id number] 81mg Take 1 Univers mg chewable 8-21 tablet by ity of tablet 00:00: mouth [place] 00 daily. Medical Branch aspirin 81 2020-0 Yes [id number] 81mg Take 1 Univers mg chewable 8-21 tablet by ity of tablet 00:00: mouth [place] 00 daily. Medical Branch aspirin 81 2020-0 Yes [id number] 81mg Take 1 Univers mg chewable 8-21 tablet by ity of tablet 00:00: mouth [place] 00 daily. Medical Branch QUEtiapine 2019-0 Yes 12.5mg 12.5 mg, U nivers (SEROQUEL) 8-19 Oral, QHS, ity of tablet 12.5 02:00: First dose [place] mg 00 (after Medical last Branch modificati on) on Sun06/15/20 at 2100, Until Discontinu ed, Routine atorvastati 2020-0 Yes [id number] 80mg Take 1 Univers n 80 mg 8-19 tablet by ity of tablet 00:00: mouth at [place] 00 bedtime. Medical Branch clopidogreL 2020-0 Yes [id number] 75mg Take 1 Univers 75 mg 8-19 tablet by ity of tablet 00:00: mouth [place] 00 daily. Medical Branch QUEtiapine 2020-0 Yes [id number] 12.5mg Take 0.5 Univers 25 mg 8-19 tablets by ity of tablet 00:00: mouth at [place] 00 bedtime. Medical Branch atorvastati 2020-0 Yes [id number] 80mg Take 1 Univers n 80 mg 8-19 tablet by ity of tablet 00:00: mouth at [place] 00 bedtime. Medical Branch atorvastati 2020-0 Yes [id number] 80mg Take 1 Univers n 80 mg 8-19 tablet by ity of tablet 00:00: mouth at [place] 00 bedtime. Medical Branch clopidogreL 2020-0 Yes [id number] 75mg Take 1 Univers 75 mg 8-19 tablet by ity of tablet 00:00: mouth [place] 00 daily. Medical Branch QUEtiapine 2020-0 Yes [id number] 12.5mg Take 0.5 Univers 25 mg 8-19 tablets by ity of tablet 00:00: mouth at [place] 00 bedtime. Medical Branch atorvastati 2020-0 Yes [id number] 80mg Take 1 Univers n 80 mg 8-19 tablet by ity of tablet 00:00: mouth at [place] 00 bedtime. Medical Branch clopidogreL 2020-0 Yes [id number] 75mg Take 1 Univers 75 mg 8-19 tablet by ity of tablet 00:00: mouth [place] 00 daily. Medical Branch QUEtiapine 2020-0 Yes [id number] 12.5mg Take 0.5 Univers 25 mg 8-19 tablets by ity of tablet 00:00: mouth at [place] 00 bedtime. Medical Branch clopidogreL 2020-0 Yes [id number] 75mg Take 1 Univers 75 mg 8-19 tablet by ity of tablet 00:00: mouth [place] 00 daily. Medical Branch atorvastati 2020-0 Yes [id number] 80mg Take 1 Univers n 80 mg 8-19 tablet by ity of tablet 00:00: mouth at [place] [address] bedtime. Medical Branch clopidogreL 2020-0 Yes [id number] 75mg Take 1 Univers 75 mg 8-19 tablet by ity of tablet 00:00: mouth [place] 00 daily. Medical Branch QUEtiapine 2020-0 Yes [id number] 12.5mg Take 0.5 Univers 25 mg 8-19 tablets by ity of tablet 00:00: mouth at [place] 00 bedtime. Medical Branch QUEtiapine 2020-0 Yes [id number] 12.5mg Take 0.5 Univers 25 mg 8-19 tablets by ity of tablet 00:00: mouth at [place] [address] bedtime. Medical Branch aspirin 81 2019-0 2020- No [id number] 81mg Take 1 Univers mg chewable 8-19 -21 tablet by it y of tablet 00:00: 00:00 mouth [place] 00 :00 daily. Medical Branch barium 2020- No 50mL 50 mL, Univers sulfate-NO 06-15 Oral, ity of CHARGE- 20:00: 19:55 ONCE, 1 [place] (VARIBAR 00 :00 dose, Tue Medica l NECTOR) 40 06/15/[address] [facility] % (w/v) 1500, oral Routine suspension 50 mL barium 2019- No 50mL 50 mL, Univers sulfate 06-15 Oral, ity of (LIQUID E-Z 20:00: 19:50 ONCE, 1 [place] PAQUE) 60 % 00 :00 dose, [facility] Med ical (w/v) oral 06/15/[address] [facility] suspension 1500, 50 mL Routine diphenhydrA 2020- No 25mg 25 mg, Uni vers MINE 06-15 Slow IV ity of (BENADRYL) 06:15: 05:35 Push, ONCE [place] injection 00 :00 NOW, 1 Medical 25 mg dose, [facility] 06/15/20 at 0115, Routine perflutren 0 2020- No 3mL 3 mL, IV Un kiki protein-A 06-14 Push, ity of microsphr 19:45: 16:25 ONCE, 1 [place] (OPTISON) 00 :00 dose, Mon Medic al injection 3 06/14/20 at Br anch mL 1445, Routine Saline 2020-0 Yes 6mL 6 mL, Univers Bubble 8- Injection, ity of Study 18:35: SEE-INSTRU [place] 28 CTIONS, Medical Starting Branch [facility] 06/14/20 at 1335, Until Discontinu ed, Routine Saline 2020-0 Yes 6mL 6 mL, Univers Bubble 8 Injection, ity of Study 18:35: SEE-INSTRU [place] 24 CTIONS, [facility] Starting Branch [facility] 06/14/20 at 1335, Until Discontinu ed, Routine QUEtiapine 2020-0 2020- No 25mg 25 mg, Univ ers (SEROQUEL) 06-14 Oral, ity of tablet 25 15:30: 22:11 BIDPRN, [place] mg 55 :54 Starting Medical [facility] 06/14/20 at 1030, Until Sun06/15/20 at 1711, Routine, agitation heparin 2020-0 Yes 5000U 5,000 Univers (porcine) 06-14 Units, ity of injection 15:30: [place]cut[place]o [place] 5,000 Units 00 us, Q12H, Med ical First dose Branch on [facility] 06/14/20 at 1030, Until Discontinu ed, Routine clopidogreL 2020-0 Yes 75mg 75 mg, [facility] ers (PLAVIX) 06-14 Oral, ity of tablet 75 15:30: DAILY, [place] mg 00 First dose Medical on [facility] 06/14/20 at 1030, Until Discontinu ed, Routine aspirin 2020-0 Yes 81mg 81 mg, Univers chewable 06-14 Oral, ity of tablet 81 15:30: DAILY, [place] mg 00 First dose Medical on [facility] 06/14/20 at 1030, Until Discontinu ed, Routine diphenhydrA 2020-0 2020- No 25mg 25 mg, Uni vers MINE 06-14 Slow IV ity of (BENADRYL) 07:00: 06:16 Push, ONCE [place] injection 00 :00 NOW, 1 Medical 25 mg dose, [facility] 06/14/20 at 0200, Routine haloperidol 2020-0 2020- No 1mg 1 mg, Slow Univers lactate 06-14 IV Push, ity of (HALDOL) 06:45: 05:43 ONCE NOW, [place] injection 1 00 :00 1 dose, Medic al mg Mon Branch 06/14/20 at 0145, Routine atorvastati 2020-0 Yes 80mg 80 mg, Univ ers n (LIPITOR) 06-14 Oral, QHS, it y of tablet 80 02:00: First dose [place] 00 on [facility] 06/13/20 at Branch 2100, Until Discontinu ed, Routine clopidogreL 2020-0 2020- No 75mg 75 mg, Uni vers (PLAVIX) 06-13 Oral, ity of tablet 75 14:00: 12:22 DAILY, [place] mg 00 :07 First dose Medical on [facility] 06/13/20 at 0900, Until Discontinu ed, Routine aspirin 2020-0 2020- No 81mg 81 mg, Univers chewable 06-13 Oral, ity of tablet 81 14:00: 12:22 DAILY, [place] mg 00 :07 First dose Medical on [facility] 06/13/20 at 0900, Until Discontinu ed, Routine Sliding 2020-0 Yes Subcutaneo Univ ers Scale 06-13 us, TID ity of Insulin - 13:00: MEALS+HS, [place] as Aspart 00 First dose Medical (NOVOLOG) + on [facility] 06/13/20 at Testing 0800, Until Discontinu ed, Routine famotidine 2020-0 Yes 20mg 20 mg, Unive rs (PEPCID AC) 06-13 Oral, BID, it y of tablet 20 13:00: First dose [place] mg 00 on [facility] 06/13/20 at Branch 0800, Until Discontinu ed, Routine heparin 2020-0 2020- No 5000U 5,000 Univers (porcine) 06-13 Units, ity of injection 13:00: 12:22 Subcutaneo [place] 5,000 Units 00 :42 us, Q12H, Med ical First dose Branch on [place] 06/13/20 at 0800, Until Discontinu ed, Routine magnesium 2020-0 2020- No 1g 1 g, IV Univ ers sulfate in 06-13 Piggyback, it y of D5W 1 10:00: 10:47 ONCE, 1 [place] gram/100 mL 00 :00 dose, [place] Med ical RTU IV 06/13/20 at Branch Piggyback 1 0500, 100 g mL iohexol 2020-0 2020- No 100mL 100 mL, Unive rs (OMNIPAQUE 06-13 Intravenou it y of 350 03:30: 02:05 s, ONCE, 1 [place] BULK-150 00 :00 dose, Sat Medica l mL) 06/12/20 at [place] injection 2230, 100 mL Routine glucagon 2019-0 Yes 1mg 1 mg, Univers (GLUCAGEN 06-13 Intramuscu ity of DIAGNOSTIC 02:53: lar, PRN, [place] KIT) 22 Starting Medical injection 1 Sat Branch mg 06/12/20 at 2153, Until Discontinu ed, CELIO, Blood Glucose < or = 70 mg/dL and patient is unable to swallow or has mental changes. dextrose 50 2019-0 Yes 25mL 25 mL, Univ ers % in water 06-13 Slow IV ity of (D50W) 02:53: Push, PRN, [place] injection 22 Starting Medica l 25 mL Sat [place] 06/12/20 at 2153, Until Discontinu ed, CELIO, Blood Glucose < or = 70 mg/dL and patient is unable to swallow or has mental status changes. aspirin 2019-2019- No 325mg 325 mg, Unive rs E.C. 06-13 Oral, ONCE ity of (ECOTRIN) 02:45: 03:15 NOW, 1 [place] tablet 325 00 :00 dose, Sat Medi saúl mg 06/12/20 at Branch 2145, STAT NaCl 0.9% 0 2020- No 1000mL at 999 Uni vers (NS) bolus 06-12-15 mL/hr, ity of infusion 21:45: 22:17 1,000 mL, Jose as 1,000 mL 00 :00 IV Medical Infusion, [place] ONCE, 1 dose, 06/12/20 at 1645, CELIO aspirin 81 aspirin 81 No aspirin 81 [place] mg chewable mg chewable mg d a tablet CHEW tablet CHEW chewable [facility] AND SWALLOW AND SWALLOW tablet al 1 TABLET BY 1 TABLET BY CHEW AND Health MOUTH ONCE MOUTH ONCE SWALLOW 1 Outreac DAILY DAILY TABLET BY h MOUTH ONCE Program DAILY atorvastati atorvastati No atorvastat [place] n 40 mg n 40 mg in 40 mg da tablet TAKE tablet TAKE tablet [facility] 1 TABLET BY 1 TABLET BY TAKE 1 al MOUTH AT MOUTH AT TABLET BY He alth BEDTIME BEDTIME MOUTH AT Outre ac BEDTIME h Program Brilinta 90 Brilinta 90 No Brilinta [place] mg tablet mg tablet 90 mg da Take 1 Take 1 tablet [facility] tablet tablet Take 1 al twice a day twice a day tablet Health by oral by oral twice a Outrea c route for route for day by h 30 days. 30 days. oral route P rogram for 30 days. metformin metformin No metformin [place] 500 mg 500 mg 500 mg da tablet Take tablet Take tablet [facility] 1 tablet 1 tablet Take 1 al twice a day twice a day tablet Health by oral by oral twice a Outrea c route. route. day by h oral Program route. Immunizations Ordered Filled Immunization Date Status Comments [facility] e Immunization Name Name Tdap Tdap 2020-09-13 Completed [facility] 12:43:29 [facility] Influenza vaccine, Influenza vaccine, 2020-09-13 Completed [place] quadrivalent, quadrivalent, 12:42:40 [facility] adjuvanted adjuvanted Outreach Progr am Influenza High Dose 2019-09-02 Completed Unive rsity of 00:00:00 [facility] Influenza High Dose 2019-09-02 Completed Unive rsity of 00:00:00 [facility] Vital Signs Vital Name Observation Time Observation Value Comments Source HEIGHT 2020-04-24 00:00:00 160 cm WEIGHT 2020-04-24 00:00:00 75.978 kg Height 2020-09-21 00:00:00 64 [in_i] [place] [facility] BP Diastolic 2020-09-13 00:00:00 64 mm[Hg] [place] [facility] Height 2020-09-13 00:00:00 64 [in_i] [place] [facility] BP Systolic 2020-09-13 00:00:00 118 mm[Hg] [place] [facility] Height 2020-08-10 00:00:00 64 [in_i] [place] [facility] BP Diastolic 2020-07-07 00:00:00 62 mm[Hg] [place] [facility] Height 2020-07-07 00:00:00 64 [in_i] [place] [facility] BP Systolic 2020-07-07 00:00:00 112 mm[Hg] [place] [facility] BP Diastolic 2020-06-29 00:00:00 64 mm[Hg] [place] [facility] Height 2020-06-29 00:00:00 64 [in_i] [place] [facility] BMI (Body Mass 2020-06-29 00:00:00 25.7 kg/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) [facility] BP Systolic 2020-06-29 00:00:00 118 mm[Hg] [place] [facility] Body Weight 2020-06-29 00:00:00 2400 [oz_av] [place] [facility] Systolic blood 2020-06-18 16:01:00 138 mm[Hg] Univer sity of pressure [facility] Diastolic blood 2020-06-18 16:01:00 84 mm[Hg] Unive rsity of pressure [facility] Heart rate 2020-06-18 16:01:00 102 /min [facility] Body temperature 2020-06-18 16:01:00 35.94 Miranda [facility] Res[facility] rate 2020-06-18 16:01:00 18 /min [facility] Oxygen saturation in 2020-06-18 16:01:00 97 /min [facility] Arterial blood by [facility] Pulse oximetry Branch Body height 2020-06-12 19:22:00 172.7 cm [facility] Body weight 2020-06-12 19:22:00 72 kg [facility] BMI 2020-06-12 19:22:00 24.14 kg/m2 [facility] HEIGHT 2020-04-24 00:00:00 160 cm WEIGHT 2020-04-24 00:00:00 75.978 kg Procedures Procedure Date / Time Performing Source Performed Clinician AUTHORIZATION FOR RELEASE OF 2020-07-07 Doctor Unassigned, [facility] PHI 05:01:00 [facility] COVID-19 (ID NOW RAPID 2020-06-18 R[facility]h [facility] TESTING) 16:29:00 Medical Branch POCT GLUCOSE (AUTOMATED) [facility] 16:03:00 Medical Branch POCT GLUCOSE (AUTOMATED) 2020-06-18 Jessi, [facility] 13:19:00 Medical Branch POCT GLUCOSE (AUTOMATED) 2020-06-18 Jessi, [facility] 00:26:00 Medical Branch POCT GLUCOSE (AUTOMATED) 2020-06-17 Jessi, [facility] 21:44:00 Medical Branch POCT GLUCOSE (AUTOMATED) 2020-06-17 Jessi, [facility] 17:23:00 Medical Branch POCT GLUCOSE (AUTOMATED) 2020-06-17 Jessi, [facility] 13:42:00 Medical Branch POCT GLUCOSE (AUTOMATED) 2020-06-17 Jessi, [facility] 00:02:00 Medical Branch POCT GLUCOSE (AUTOMATED) 2020-06-16 Jessi, [facility] 21:27:00 Medical Branch POCT GLUCOSE (AUTOMATED) 2020-06-16 Jessi, [facility] 16:32:00 Medical Branch POCT GLUCOSE (AUTOMATED) 2020-06-16 Jessi, [facility] 12:44:00 Medical Branch POCT GLUCOSE (AUTOMATED) 2020-06-16 Jessi, [facility] 01:29:00 Medical Branch POCT GLUCOSE (AUTOMATED) 2020-06-15 Jessi [facility] 22:43:00 Medical Branch [place] MODIFIED BARIUM SWALLOW 2020-06-15 Ritesh Cotter [facility] 20:08:00 Medical Branch POCT GLUCOSE (AUTOMATED) 2020-06-15 Jessi [facility] 16:10:00 Medical Branch EKG-12 LEAD 2020-06-15 Jessi [facility] [place]as 15:12:48 Medical Branch POCT GLUCOSE (AUTOMATED) 2020-06-15 Jessi, [facility] 12:29:00 Medical Branch POCT GLUCOSE (AUTOMATED) 2020-06-15 Jessi, [facility] 00:27:00 Medical Branch POCT GLUCOSE (AUTOMATED) 2020-06-14 [facility] 20:31:00 Medical Branch POCT GLUCOSE (AUTOMATED) 2020-06-14 [facility] 16:48:00 Medical Branch MAGNESIUM 2020-06-[address] [facility] xa 16:31:00 Medical Branch AMMONIA, PLASMA 2020-06-14 Vahe, [facility] xas 16:31:00 [facility] Branch HEPATIC FUNCTION PANEL 2020-06-14 [id number] (ALB,T.PRO,BILI 16:31:00 Medical Branch T,BU/BC,ALT,AST,ALK PHOS) BASIC METABOLIC PANEL (NA, K, 2020-06-14 [facility], CO2, GLUCOSE, BUN, 16:31:00 Medical ranch CREATININE, CA) CBC WITH DIFF 2020-06-[address] [facility] xa 16:31:00 Medical [place] ECHO ROUTINE W/DOPPLER COLOR 2020-06-14 Vahe [facility] 15:51:23 [facility] Branch POCT GLUCOSE (AUTOMATED) 2020-06-14 [facility] 12:50:00 [facility] POCT GLUCOSE (AUTOMATED) 2020-06-14 [facility] 01:03:00 [facility] ELECTROENCEPHALOGRAM 2020-06-14 [facility] 00:[facility]00 [facility] POCT GLUCOSE (AUTOMATED) 2020-06-13 [facility] 21:31:00 [facility] POCT GLUCOSE (AUTOMATED) 2020-06-13 [facility] 16:33:00 [facility] POCT GLUCOSE (AUTOMATED) 2020-06-13 [facility] 12:38:00 Medical Branch CBC WITHOUT DIFF 2020-06-[facility] 09:39[facility]00 [facility] Branch MR BRAIN WO CONTRAST 2020-06-13 [facility] 09:15:28 [facility] URINALYSIS 2020-06-13 Mariia Reid [facility] 08:31:00 [facility] LIPID PANEL ([id number])(TOTAL 2020-06-13 Amrani, Ritesh [facility] CHOLESTEROL, TRIGLYCERIDES, 03:55:00 [facility] Branch HDL) MAGNESIUM 2020-06-13 Ritesh Cotter [facility] xas 03:54:[address] ANGIOGRAM HEAD 2020-06-13 [facility] 03:29:27 [facility] CT ANGIOGRAM NECK 2020-06-13 [facility] 03:29:27 [facility] POCT GLUCOSE (AUTOMATED) 2020-06-13 Rose Bowen [facility] 03:05:[address] HEAD WO CONTRAST 2020-06-12 [facility] 20:17:41 Medical Branch XR CHEST 1 VW 2020-06-12 Mariia Reid [facility] 20:15:52 [facility] Branch COVID-19 (ID NOW RAPID 2020-06-12 Mariia Reid [facility] TESTING) 19:45:00 [facility] TROPONIN I 2020-06-12 Mariia Reid [facility] 19:43:00 [facility] HEPATIC FUNCTION PANEL 2020-06-12 Mariia Reid [facility] ([id number]) (ALB,T.PRO,BILI 19:43:00 [facility] Branch T,BU/BC,ALT,AST,ALK PHOS) BASIC METABOLIC PANEL (NA, K, 2020-06-12 Mariia Reid [facility] CL, CO2, GLUCOSE, BUN, 19:43:00 Medical B ranch CREATININE, CA) CBC WITH DIFF 2020-06-12 Mariia Reid [facility] 19:43:00 [facility] GLYCOSYLATED HEMOGLOBIN (A1C) 2020-06-12 Ritesh Cotter [facility] 19:43:00 [facility] Branch NOTICE OF PRIVACY PRACTICES 2020-06-12 Doctor Unassigned, [facility] 19:15:42 [facility] CONSENT/REFUSAL FOR DIAGNOSIS 2020-06-12 Doctor Edward, [facility] AND TREATMENT 19:12:09 [facility] AGREEMENTS AUTHORIZATIONS AND 2020-06-12 Doctor Edward, [facility] IRREVOCABLE ASSIGNMENTS (FORM 05:01:00 [place] [facility] 2000) HOSPITAL ADMISSION 2020-06-12 Doctor Unasskings, [facility] 05:01:00 [facility] Colonoscopy 2017-10-29 Becca Merchant pal 00:00:00 Health Outreach Program Appendectomy [facility] Removal of Gallstones from [place] [facility] [facility] Outreach [facility] Ankle Surgery [facility] Encounters Start End Encounter Admission Attending Care Care Encounter Source Date/Time Date/Time Type Type Clinicians Facility Department ID 2021-11-23 Outpatient Morales, [facility] 2021-11-23 Outpatient Morales, [facility] 14[facility] 2021-11-23 Outpatient Morales, [facility]LC [facility] 13[facility]50:37 [facility]ya [id number] [facility] 2021-11-23 Outpatient [facility] 13:[facility]10 [id number] [facility] 2021-08-02 Inpatient ER GADICHERDC, SLE Internal [id number] [facility] 22:02:43 [facility] Med 2021-08-02 Inpatient [facility] Neurology [id number] [facility] 22[facility]13 [facility] 2021-11-10 2021-11-10 ambulatory [id number] 2021-08-09 2021-08-09 Outpatient [facility] [id number] 2021-07-06 2021-07-06 Outpatient [facility] [id number] 2021-07-06 2021-07-06 Outpatient [facility] [id number] 2021-03-20 2021-03-20 Outpatient AMBREEN_FAR MEHOP MEHOP [id number] [place] 04:34:00 04:34:00 [facility]NA [id number] 2021-03-07 2021-03-07 Outpatient AMBREEN_FAR MEHOP MEHOP [id number] [place] 01:00:00 01:00:00 HANA [id number] [facility] 2020-12-22 2020-12-22 Outpatient AMBREEN_FAR [facility] 110 [id number] [place] 12:39:00 12:39:00 HANA 63194 [facility] 2020-12-20 2020-12-20 Outpatient AM[facility] 110 [id number] [place] 03:40:00 03:40:00 HANA 62752 [facility] 2020-12-15 2020-12-15 Outpatient AMBREEN_[facility]AR [facility] 110 [id number] [place] 01:53:00 01:53:00 HANA 26216 [facility] 2020-12-07 2020-12-07 Outpatient AMBREEN_FAR [facility] M[facility]OP 110 [place] 01:03:00 01:03:00 HANA 68758 [facility] 2020-11-30 2020-11-30 Outpatient AMBREEN_FAR [facility] 110 039 [place] 05:57:00 05:57:00 HANA 08201 [facility] 2020-11-25 2020-11-25 Outpatient AMBREEN_FAR [facility] 110 039 [place] 03:59:00 03:59:00 HANA 86992 [facility] 2020-11-02 2020-11-02 Outpatient AMBREEN_FAR [facility] ME[facility]OP 110 [id number] [place] 01:03:00 01:03:00 HANA 23513 [facility] 2020-11-01 2020-11-01 Outpatient AMBREEN_FAR ME[facility]OP ME[facility]OP 110 [id number] [place] 12:04:00 12:04:00 HANA 79426 [facility] 2020-09-28 2020-09-28 Outpatient AMBREEN_FAR MEHOP M[facility] 110 [id number] [place] 01:02:00 01:02:00 HANA 94866 [facility] 2020-09-21 2020-09-21 Outpatient AMBREEN_FAR ME[facility]OP [facility] [phone] [place] 03:46:00 03:46:00 HANA 79858 [facility] 2020-09-21 2020-09-21 Jadyn [facility] [place] - [id number] [place] 00:00:00 00:00:00 Becca Ge MD: [address] [facility] [place], [place] Eye [facility] [address] [facility] , Ph. h (979) Program 2020-09-13 2020-09-13 Outpatient AMBREEN_FAR MNHOP [facility] 110 [id number] [place] 12:42:00 12:42:00 HANA 74808 [facility] 2020-09-13 2020-09-13 [facility] - [id number] [place] 00:00:00 00:00:00 Becca Terrazas MD: [address] [facility] [address] h , Ph. Program 2020-08-31 2020-08-31 Outpatient AMBREEN_FAR [facility] 110 [id number] [place] 05:53:00 05:53:00 HANA 98775 [facility] 2020-08-20 2020-08-20 Outpatient REGGIE [facility] 7500 [place] 07:55:00 12:12:00 ANTHONY Mckay [facility] 2020-08-10 2020-08-10 Outpatient AMBREEN_FAR MNHOP [facility] 110 [id number] [place] 04:31:00 04:31:00 HANA 41645 [facility] 2020-08-10 2020-08-10 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 2020-07-23 2020-07-23 Miroslava Oh 1.2.840.114 [id number] Univers 00:00:00 00:00:00 (Out) Xiahannah [place] [id number] ity of Hospital 4.2.7.2.686 Jose as [phone] [facility] [address] 2020-07-23 2020-07-23 Miroslava Oh 1.2.840.114 [id number] 00:00:00 00:00:00 (Out) Rose [place] [id number] Hospital 4.2.7.2.686 [id number] 09 2020-07-07 2020-07-07 [facility] 110 [id number] [place] 05:40:00 05:40:00 ANTON 22480 angela [facility] 2020-07-07 2020-07-07 [facility] [place] - [id number] M [place] 00:00:00 00:00:00 Becca Terrazas MD: 1700 J[address] [facility] [place] Outre [address] h , Ph. Program 2020-07-07 2020-07-07 Orders Doctor LOCKWOOD 1.2.840.114 [id number] Univers 00:00:00 00:00:00 Only Unassigned, [place] 350.1.13.10 ity of [facility] 4.2.7.2.686 Jose as [phone] [facility] [address] 2020-07-07 2020-07-07 Orders Doctor FABIÁN Glass.2.840.114 [id number] 00:00:00 00:00:00 Only Unassigned, [place] 350.1.13.10 [facility] 4.2.7.2.686 [id number] 009 2020-07-01 2020-07-01 Outpatient AMBREEN_FAR MNHOP [facility] 110 [id number] [place] 12:45:00 12:45:00 HANA 29644 [facility] 2020-06-29 2020-06-29 Outpatient AMBREEN_FAR MNHOP [facility] 110 [id number] [place] 03:40:00 03:40:00 HANA 43072 [facility] 2020-06-29 2020-06-29 Peace [facility] [place] - [id number] M [place] 00:00:00 00:00:00 Becca Terrazas MD: 17046 Jainism 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 2020-06-28 2020-06-28 Outpatient AMBREEN_ANUP [facility] 110 [id number] [place] 04:13:00 04:13:00 HANA 23892 [facility] 2020-06-21 2020-06-21 Transition Natalia Cerda 1.2.840.114 [id number] Univers 00:00:00 00:00:00 of Care Eunice Lopez 350.1.13.10 [place] [phone] [facility] [address] 2020-06-21 2020-06-21 Transition Natalia Cerda 1.2.840.114 [id number] 00:00:00 00:00:00 of Care Eunice Lopez 350.1.13.10 [place] 4.2.7.2.686 [id number] [facility] 2020-06-12 2020-06-18 [facility] Mariia Reid 1.2.84 0.114 [id number] Univers 14:18:00 18:06:00 Encounter Rose Bowen 350.1.13.10 ity [facility] 4.2.7.2.686 Jose as [phone] [facility] [address] 2020-06-12 2020-06-12 Emergency X [facility] ERT [id number] Univers 14:18:00 14:18:00 MARIIA chaudhary [facility] 2019-12-17 2019-12-17 Outpatient Elan [facility] [phone] [facility] 07:18:00 07:18:00 _A_ [id number] Family Practic e Results Test Description Test Time Test Comments Results Result Comments Source TSH, serum, reflex free T4 2020-09-14 00:00:00 Test Item Value Reference Range Interpretation Comme nts Thyrotropin [Units/volume] in Serum or Plasma by 3.270 uIU/mL 0.450 -4.500 Detection limit <= 0.005 mIU/L (test code = 01590-3) Thyroxine (T4) free [Mass/volume] in Serum or Plasma 1.47 NG/dL 0 .82-1.77 (test code = 3024-7) [facility] W Auto Differential panel - Blood 2020-09-14 00:00:00 Test Item Value Reference Range Interpretation Comments Leukocytes [#/volume] in Blood 6.5 x10e3/uL 3.4-10.8 by Automated count (test code = 6690-2) Erythrocytes [#/volume] in 4.79 x10e6/uL 4.14-5.80 Blood by Automated count (test code = 789-8) Hemoglobin [Mass/volume] in 14.4 g/dL 13.0-17.7 Blood (test code = 718-7) Hematocrit [Volume Fraction] of 44.3 % 37.5-51.0 Blood by Automated count (test code = 4544-3) MCV [Entitic volume] by 93 fL 79-97 Automated count (test code = 787-2) MCH [Entitic mass] by Automated 30.1 pg 26.6-33.0 count (test code = 785-6) MCHC [Mass/volume] by Automated 32.5 g/dL 31.5-35.7 count (test code = 786-4) Erythrocyte distribution width 13.2 % 11.6-15.4 [Ratio] by Automated count (test code = 788-0) Platelets [#/volume] in Blood 308 x10e3/uL 150-450 by Automated count (test code = 777-3) Neutrophils/100 leukocytes in 79 % not estab. Blood by Automated count (test code = 770-8) Lymphocytes/100 leukocytes in 14 % not estab. Blood by Automated count (test code = 736-9) Monocytes/100 leukocytes in 6 % not estab. Blood by Automated count (test code = 5905-5) Eosinophils/100 leukocytes in 1 % not estab. Blood by Automated count (test code = 713-8) Basophils/100 leukocytes in 0 % not estab. Blood by Automated count (test code = 706-2) immature cells (test code = adjustment clerk immature cells) Neutrophils [#/volume] in Blood 5.0 x10e3/uL 1.4-7.0 by Automated count (test code = 751-8) Lymphocytes [#/volume] in Blood 0.9 x10e3/uL 0.7-3.1 by Automated count (test code = 731-0) Monocytes [#/volume] in Blood 0.4 x10e3/uL 0.1-0.9 by Automated count (test code = 742-7) Eosinophils [#/volume] in Blood 0.1 x10e3/uL 0.0-0.4 by Automated count (test code = 711-2) Basophils [#/volume] in Blood 0.0 x10e3/uL 0.0-0.2 by Automated count (test code = 704-7) Immature granulocytes/100 0 % not estab. leukocytes in Blood by Automated count (test code = 16931-3) Immature granulocytes 0.0 x10e3/uL 0.0-0.1 [#/volume] in Blood by Automated count (test code = 50404-6) Nucleated erythrocytes/100 adjustment clerk leukocytes [Ratio] in Blood by Automated count (test code = 83158-1) Morphology [Interpretation] in adjustment clerk Blood Narrative (test code = 14624-9) [facility] Out[facility] ProgramComprehensive metabolic 2000 panel - Serum or [id number] 00:00:00 Test Item Value Reference Range Interpretation Comments Glucose [Mass/volume] in 100 mg/dL 65-99 H Serum or Plasma (test code = 2345-7) Urea nitrogen [Mass/volume] 13 mg/dL 8-27 in Serum or Plasma (test code = 3094-0) Creatinine [Mass/volume] in 0.70 mg/dL 0.76-1.27 L Serum or Plasma (test code = 2160-0) Glomerular filtration 94 mL/min/1.73 >59 rate/1.73 sq M.predicted among non-blacks [Volume Rate/Area] in Serum, Plasma or Blood by Creatinine-based formula (CKD-EPI) (test code = 76531-9) Glomerular filtration 108 mL/min/1.73 >59 rate/1.73 sq M.predicted among blacks [Volume Rate/Area] in Serum, Plasma or Blood by Creatinine-based formula (CKD-EPI) (test code = 03984-2) Urea nitrogen/Creatinine 19 10-24 [Mass Ratio] in Serum or Plasma (test code = 3097-3) Sodium [Moles/volume] in 141 mmol/L 134-144 Serum or Plasma (test code = 2951-2) Potassium [Moles/volume] in 4.0 mmol/L 3.5-5.2 Serum or Plasma (test code = 2823-3) Chloride [Moles/volume] in 100 mmol/L 96-106 Serum or Plasma (test code = 2075-0) Carbon dioxide, total 26 mmol/L 20-29 [Moles/volume] in Serum or Plasma (test code = 2027-) Calcium [Mass/volume] in 9.7 mg/dL 8.6-10.2 Serum or Plasma (test code = 99116-8) Protein [Mass/volume] in 7.2 g/dL 6.0-8.5 Serum or Plasma (test code = 2885-2) Albumin [Mass/volume] in 4.5 g/dL 3.7-4.7 Serum or Plasma (test code = 1751-7) Globulin [Mass/volume] in 2.7 g/dL 1.5-4.5 Serum by calculation (test code = 98864-1) Albumin/Globulin [Mass Ratio] 1.7 1.2-2.2 in Serum or Plasma (test code = 1759-0) Bilirubin.total [Mass/volume] 0.4 mg/dL 0.0-1.2 in Serum or Plasma (test code = 1974-) Alkaline phosphatase 67 IU/L 39-117 [Enzymatic activity/volume] in Serum or Plasma (test code = 6768-6) Aspartate aminotransferase 13 IU/L 0-40 [Enzymatic activity/volume] in Serum or Plasma (test code = 1920-8) Alanine aminotransferase 22 IU/L 0-44 [Enzymatic activity/volume] in Serum or Plasma (test code = 1742-6) [facility]) [Mass/volume] in Serum or [id number] 00:00:00 Test Item Value Reference Range Interpretation Comments Cobalamin (Vitamin B12) 434 pg/mL 232-1245 [Mass/volume] in Serum or Plasma (test code = 2132-9) [facility] [Mass/volume] in Blood 2020-09-14 00:00:00 Test Item Value Reference Range Interpretation Comments Ammonia [Mass/volume] in Plasma 58 ug/dL 31-169 (test code = 96718-9) [facility] Hospital[facility], serum, reflex free [id number] 00:00:00 Test Item Value Reference Range Interpretation Comments Thyrotropin [Units/volume] in 3.270 uIU/mL 0.450-4.500 Serum or Plasma by Detection limit <= 0.005 mIU/L (test code = 51884-4) Thyroxine (T4) free 1.47 NG/dL 0.82-1.77 [Mass/volume] in Serum or Plasma (test code = 3024-7) [facility] Differential panel - Blood 2020-09-14 00:00:00 Test Item Value Reference Range Interpretation Comments Leukocytes [#/volume] in Blood 6.5 x10e3/uL 3.4-10.8 by Automated count (test code = 6690-2) Erythrocytes [#/volume] in 4.79 x10e6/uL 4.14-5.80 Blood by Automated count (test code = 789-8) Hemoglobin [Mass/volume] in 14.4 g/dL 13.0-17.7 Blood (test code = 718-7) Hematocrit [Volume Fraction] of 44.3 % 37.5-51.0 Blood by Automated count (test code = 4544-3) MCV [Entitic volume] by 93 fL 79-97 Automated count (test code = 787-2) MCH [Entitic mass] by Automated 30.1 pg 26.6-33.0 count (test code = 785-6) MCHC [Mass/volume] by Automated 32.5 g/dL 31.5-35.7 count (test code = 786-4) Erythrocyte distribution width 13.2 % 11.6-15.4 [Ratio] by Automated count (test code = 788-0) Platelets [#/volume] in Blood 308 x10e3/uL 150-450 by Automated count (test code = 777-3) Neutrophils/100 leukocytes in 79 % not estab. Blood by Automated count (test code = 770-8) Lymphocytes/100 leukocytes in 14 % not estab. Blood by Automated count (test code = 736-9) Monocytes/100 leukocytes in 6 % not estab. Blood by Automated count (test code = 5905-5) Eosinophils/100 leukocytes in 1 % not estab. Blood by Automated count (test code = 713-8) Basophils/100 leukocytes in 0 % not estab. Blood by Automated count (test code = 706-2) immature cells (test code = adjustment clerk immature cells) Neutrophils [#/volume] in Blood 5.0 x10e3/uL 1.4-7.0 by Automated count (test code = 751-8) Lymphocytes [#/volume] in Blood 0.9 x10e3/uL 0.7-3.1 by Automated count (test code = 731-0) Monocytes [#/volume] in Blood 0.4 x10e3/uL 0.1-0.9 by Automated count (test code = 742-7) Eosinophils [#/volume] in Blood 0.1 x10e3/uL 0.0-0.4 by Automated count (test code = 711-2) Basophils [#/volume] in Blood 0.0 x10e3/uL 0.0-0.2 by Automated count (test code = 704-7) Immature granulocytes/100 0 % not estab. leukocytes in Blood by Automated count (test code = 75219-4) Immature granulocytes 0.0 x10e3/uL 0.0-0.1 [#/volume] in Blood by Automated count (test code = 19876-8) Nucleated erythrocytes/100 adjustment clerk leukocytes [Ratio] in Blood by Automated count (test code = 58162-6) Morphology [Interpretation] in adjustment clerk Blood Narrative (test code = 68810-4) [facility] Outreach ProgramComprehensive metabolic 2000 panel - Serum or [id number] 00:00:00 Test Item Value Reference Range Interpretation Comments Glucose [Mass/volume] in 100 mg/dL 65-99 H Serum or Plasma (test code = 2345-7) Urea nitrogen [Mass/volume] 13 mg/dL 8-27 in Serum or Plasma (test code = 3094-0) Creatinine [Mass/volume] in 0.70 mg/dL 0.76-1.27 L Serum or Plasma (test code = 2160-0) Glomerular filtration 94 mL/min/1.73 >59 rate/1.73 sq M.predicted among non-blacks [Volume Rate/Area] in Serum, Plasma or Blood by Creatinine-based formula (CKD-EPI) (test code = 77669-2) Glomerular filtration 108 mL/min/1.73 >59 rate/1.73 sq M.predicted among blacks [Volume Rate/Area] in Serum, Plasma or Blood by Creatinine-based formula (CKD-EPI) (test code = 56464-1) Urea nitrogen/Creatinine 19 10-24 [Mass Ratio] in Serum or Plasma (test code = 3097-3) Sodium [Moles/volume] in 141 mmol/L 134-144 Serum or Plasma (test code = 2951-2) Potassium [Moles/volume] in 4.0 mmol/L 3.5-5.2 Serum or Plasma (test code = 2823-3) Chloride [Moles/volume] in 100 mmol/L 96-106 Serum or Plasma (test code = 2075-0) Carbon dioxide, total 26 mmol/L 20-29 [Moles/volume] in Serum or Plasma (test code = 2027-9) Calcium [Mass/volume] in 9.7 mg/dL 8.6-10.2 Serum or Plasma (test code = 93388-4) Protein [Mass/volume] in 7.2 g/dL 6.0-8.5 Serum or Plasma (test code = 2885-2) Albumin [Mass/volume] in 4.5 g/dL 3.7-4.7 Serum or Plasma (test code = 1751-7) Globulin [Mass/volume] in 2.7 g/dL 1.5-4.5 Serum by calculation (test code = 02019-5) Albumin/Globulin [Mass Ratio] 1.7 1.2-2.2 in Serum or Plasma (test code = 1759-0) Bilirubin.total [Mass/volume] 0.4 mg/dL 0.0-1.2 in Serum or Plasma (test code = 1975-2) Alkaline phosphatase 67 IU/L 39-117 [Enzymatic activity/volume] in Serum or Plasma (test code = 6768-6) Aspartate aminotransferase 13 IU/L 0-40 [Enzymatic activity/volume] in Serum or Plasma (test code = 1920-8) Alanine aminotransferase 22 IU/L 0-44 [Enzymatic activity/volume] in Serum or Plasma (test code = 1742-6) [facility]obal[facility] (Vitamin B12) [Mass/volume] in Serum or [id number] 00:00:00 Test Item Value Reference Range Interpretation Comments Cobalamin (Vitamin B12) 434 pg/mL 232-1245 [Mass/volume] in Serum or Plasma (test code = 2132-9) [facility] [Mass/volume] in Blood 2020-09-14 00:00:00 Test Item Value Reference Range Interpretation Comments Ammonia [Mass/volume] in Plasma 58 ug/dL 31-169 (test code = 06589-9) [facility] HospitalCom[facility] 2000 panel - Serum or [id number] 00:00:00 Test Item Value Reference Range Interpretation Comments Glucose [Mass/volume] in 151 mg/dL 65-99 H Serum or Plasma (test code = 2345-7) Urea nitrogen [Mass/volume] 8 mg/dL 8-27 in Serum or Plasma (test code = 3094-0) Creatinine [Mass/volume] in 0.69 mg/dL 0.76-1.27 L Serum or Plasma (test code = 2160-0) Glomerular filtration 94 mL/min/1.73 >59 rate/1.73 sq M.predicted among non-blacks [Volume Rate/Area] in Serum, Plasma or Blood by Creatinine-based formula (CKD-EPI) (test code = 50636-9) Glomerular filtration 109 mL/min/1.73 >59 rate/1.73 sq M.predicted among blacks [Volume Rate/Area] in Serum, Plasma or Blood by Creatinine-based formula (CKD-EPI) (test code = 64693-9) Urea nitrogen/Creatinine 12 10-24 [Mass Ratio] in Serum or Plasma (test code = 3097-3) Sodium [Moles/volume] in 141 mmol/L 134-144 Serum or Plasma (test code = 2951-2) Potassium [Moles/volume] in 3.6 mmol/L 3.5-5.2 Serum or Plasma (test code = 2823-3) Chloride [Moles/volume] in 97 mmol/L 96-106 Serum or Plasma (test code = 5-0) Carbon dioxide, total 28 mmol/L 20-29 [Moles/volume] in Serum or Plasma (test code = 2027-9) Calcium [Mass/volume] in 9.7 mg/dL 8.6-10.2 Serum or Plasma (test code = 46770-5) Protein [Mass/volume] in 7.1 g/dL 6.0-8.5 Serum or Plasma (test code = 2885-2) Albumin [Mass/volume] in 4.3 g/dL 3.7-4.7 Serum or Plasma (test code = 1751-7) Globulin [Mass/volume] in 2.8 g/dL 1.5-4.5 Serum by calculation (test code = 47655-8) Albumin/Globulin [Mass Ratio] 1.5 1.2-2.2 in Serum or Plasma (test code = 1759-0) Bilirubin.total [Mass/volume] 0.5 mg/dL 0.0-1.2 in Serum or Plasma (test code = 1975-2) Alkaline phosphatase 72 IU/L 39-117 [Enzymatic activity/volume] in Serum or Plasma (test code = 6768-6) Aspartate aminotransferase 19 IU/L 0-40 [Enzymatic activity/volume] in Serum or Plasma (test code = 1920-8) Alanine aminotransferase 39 IU/L 0-44 [Enzymatic activity/volume] in Serum or Plasma (test code = 1742-6) [facility] Outreach [facility] W Auto Differential panel - Blood 2020-07-13 00:00:00 Test Item Value Reference Range Interpretation Comments Leukocytes [#/volume] in Blood 6.7 x10e3/uL 3.4-10.8 by Automated count (test code = 6690-2) Erythrocytes [#/volume] in 4.98 x10e6/uL 4.14-5.80 Blood by Automated count (test code = 789-8) Hemoglobin [Mass/volume] in 14.8 g/dL 13.0-17.7 Blood (test code = 718-7) Hematocrit [Volume Fraction] of 45.2 % 37.5-51.0 Blood by Automated count (test code = 4544-3) MCV [Entitic volume] by 91 fL 79-97 Automated count (test code = 787-2) MCH [Entitic mass] by Automated 29.7 pg 26.6-33.0 count (test code = 785-6) MCHC [Mass/volume] by Automated 32.7 g/dL 31.5-35.7 count (test code = 786-4) Erythrocyte distribution width 13.0 % 11.6-15.4 [Ratio] by Automated count (test code = 788-0) Platelets [#/volume] in Blood 291 x10e3/uL 150-450 by Automated count (test code = 777-3) Neutrophils/100 leukocytes in 77 % not estab. Blood by Automated count (test code = 770-8) Lymphocytes/100 leukocytes in 14 % not estab. Blood by Automated count (test code = 736-9) Monocytes/100 leukocytes in 7 % not estab. Blood by Automated count (test code = 5905-5) Eosinophils/100 leukocytes in 2 % not estab. Blood by Automated count (test code = 713-8) Basophils/100 leukocytes in 0 % not estab. Blood by Automated count (test code = 706-2) immature cells (test code = adjustment clerk immature cells) Neutrophils [#/volume] in Blood 5.1 x10e3/uL 1.4-7.0 by Automated count (test code = 751-8) Lymphocytes [#/volume] in Blood 1.0 x10e3/uL 0.7-3.1 by Automated count (test code = 731-0) Monocytes [#/volume] in Blood 0.5 x10e3/uL 0.1-0.9 by Automated count (test code = 742-7) Eosinophils [#/volume] in Blood 0.1 x10e3/uL 0.0-0.4 by Automated count (test code = 711-2) Basophils [#/volume] in Blood 0.0 x10e3/uL 0.0-0.2 by Automated count (test code = 704-7) Immature granulocytes/100 0 % not estab. leukocytes in Blood by Automated count (test code = 80105-6) Immature granulocytes 0.0 x10e3/uL 0.0-0.1 [#/volume] in Blood by Automated count (test code = 45367-1) Nucleated erythrocytes/100 adjustment clerk leukocytes [Ratio] in Blood by Automated count (test code = 97310-4) Morphology [Interpretation] in adjustment clerk Blood Narrative (test code = 76016-8) [facility], [id number] 00:00:00 Test Item Value Reference Range Interpretation Comments Cholesterol [Mass/volume] in Serum 146 mg/dL 100-199 or Plasma (test code = 2093-3) Triglyceride [Mass/volume] in Serum 152 mg/dL 0-149 H or Plasma (test code = 2571-8) Cholesterol in HDL [Mass/volume] in 41 mg/dL >39 Serum or Plasma (test code = 2085-9) Cholesterol in VLDL [Mass/volume] 26 mg/dL 5-40 in Serum or Plasma by calculation (test code = 65656-6) Cholesterol in LDL [Mass/volume] in 79 mg/dL 0-99 Serum or Plasma by calculation (test code = 84123-7) Laboratory comment [Text] in Report adjustment clerk Narrative (test code = 84903-0) Cholesterol.total/Cholesterol.in 3.6 ratio 0.0-5.0 HDL [Mass ratio] in Serum or Plasma (test code = 9830-1) Cholesterol in LDL/Cholesterol in 1.9 ratio 0.0-3.6 HDL [Mass Ratio] in Serum or Plasma (test code = 74652-9) [facility] Hospital[facility]em[facility] A1c/Hemoglobin.total in [id number] 00:00:00 Test Item Value Reference Range Interpretation Comments Hemoglobin A1c/Hemoglobin.total in 7.6 % 4.8-5.6 H Blood (test code = 4548-4) Glucose mean value [Mass/volume] in 171 mg/dL Blood Estimated from glycated hemoglobin (test code = 80706-4) [facility] Urine 2020-07-13 00:00:00 Test Item Value Reference Range Interpretation Comments Microalbumin [Mass/volume] in Urine 7.9 ug/mL not estab. (test code = 27528-0) [facility] Hospital[facility]yrotropin [Units/volume] in Serum or Plasma by Detection limit <= 0.005 mIU/[id number] 00:00:00 Test Item Value Reference Range Interpretation Comments Thyrotropin [Units/volume] in 2.180 uIU/mL 0.450-4.500 Serum or Plasma by Detection limit <= 0.005 mIU/L (test code = 70319-7) [facility], [id number] 00:00:00 Test Item Value Reference Range Interpretation Comments interpretation (test code = note interpretation) pdf (test code = pdf) . [facility] [id number] 00:00:00 Test Item Value Reference Range Interpretation Comments pdf (test code = pdf) not applicable [facility] 2000 panel - Serum or [id number] 00:00:00 Test Item Value Reference Range Interpretation Comments Glucose [Mass/volume] in 151 mg/dL 65-99 H Serum or Plasma (test code = 2345-7) Urea nitrogen [Mass/volume] 8 mg/dL 8-27 in Serum or Plasma (test code = 3094-0) Creatinine [Mass/volume] in 0.69 mg/dL 0.76-1.27 L Serum or Plasma (test code = 2160-0) Glomerular filtration 94 mL/min/1.73 >59 rate/1.73 sq M.predicted among non-blacks [Volume Rate/Area] in Serum, Plasma or Blood by Creatinine-based formula (CKD-EPI) (test code = 59422-1) Glomerular filtration 109 mL/min/1.73 >59 rate/1.73 sq M.predicted among blacks [Volume Rate/Area] in Serum, Plasma or Blood by Creatinine-based formula (CKD-EPI) (test code = 94145-5) Urea nitrogen/Creatinine 12 10-24 [Mass Ratio] in Serum or Plasma (test code = 3097-3) Sodium [Moles/volume] in 141 mmol/L 134-144 Serum or Plasma (test code = 2951-2) Potassium [Moles/volume] in 3.6 mmol/L 3.5-5.2 Serum or Plasma (test code = 2823-3) Chloride [Moles/volume] in 97 mmol/L 96-106 Serum or Plasma (test code = 5-0) Carbon dioxide, total 28 mmol/L 20-29 [Moles/volume] in Serum or Plasma (test code = 2027-9) Calcium [Mass/volume] in 9.7 mg/dL 8.6-10.2 Serum or Plasma (test code = 35842-1) Protein [Mass/volume] in 7.1 g/dL 6.0-8.5 Serum or Plasma (test code = 2885-2) Albumin [Mass/volume] in 4.3 g/dL 3.7-4.7 Serum or Plasma (test code = 1751-7) Globulin [Mass/volume] in 2.8 g/dL 1.5-4.5 Serum by calculation (test code = 67302-5) Albumin/Globulin [Mass Ratio] 1.5 1.2-2.2 in Serum or Plasma (test code = 1759-0) Bilirubin.total [Mass/volume] 0.5 mg/dL 0.0-1.2 in Serum or Plasma (test code = 1975-2) Alkaline phosphatase 72 IU/L 39-117 [Enzymatic activity/volume] in Serum or Plasma (test code = 6768-6) Aspartate aminotransferase 19 IU/L 0-40 [Enzymatic activity/volume] in Serum or Plasma (test code = 1920-8) Alanine aminotransferase 39 IU/L 0-44 [Enzymatic activity/volume] in Serum or Plasma (test code = 1742-6) [facility] W Auto Differential panel - Blood 2020-07-13 00:00:00 Test Item Value Reference Range Interpretation Comments Leukocytes [#/volume] in Blood 6.7 x10e3/uL 3.4-10.8 by Automated count (test code = 6690-2) Erythrocytes [#/volume] in 4.98 x10e6/uL 4.14-5.80 Blood by Automated count (test code = 789-8) Hemoglobin [Mass/volume] in 14.8 g/dL 13.0-17.7 Blood (test code = 718-7) Hematocrit [Volume Fraction] of 45.2 % 37.5-51.0 Blood by Automated count (test code = 4544-3) MCV [Entitic volume] by 91 fL 79-97 Automated count (test code = 787-2) MCH [Entitic mass] by Automated 29.7 pg 26.6-33.0 count (test code = 785-6) MCHC [Mass/volume] by Automated 32.7 g/dL 31.5-35.7 count (test code = 786-4) Erythrocyte distribution width 13.0 % 11.6-15.4 [Ratio] by Automated count (test code = 788-0) Platelets [#/volume] in Blood 291 x10e3/uL 150-450 by Automated count (test code = 777-3) Neutrophils/100 leukocytes in 77 % not estab. Blood by Automated count (test code = 770-8) Lymphocytes/100 leukocytes in 14 % not estab. Blood by Automated count (test code = 736-9) Monocytes/100 leukocytes in 7 % not estab. Blood by Automated count (test code = 5905-5) Eosinophils/100 leukocytes in 2 % not estab. Blood by Automated count (test code = 713-8) Basophils/100 leukocytes in 0 % not estab. Blood by Automated count (test code = 706-2) immature cells (test code = adjustment clerk immature cells) Neutrophils [#/volume] in Blood 5.1 x10e3/uL 1.4-7.0 by Automated count (test code = 751-8) Lymphocytes [#/volume] in Blood 1.0 x10e3/uL 0.7-3.1 by Automated count (test code = 731-0) Monocytes [#/volume] in Blood 0.5 x10e3/uL 0.1-0.9 by Automated count (test code = 742-7) Eosinophils [#/volume] in Blood 0.1 x10e3/uL 0.0-0.4 by Automated count (test code = 711-2) Basophils [#/volume] in Blood 0.0 x10e3/uL 0.0-0.2 by Automated count (test code = 704-7) Immature granulocytes/100 0 % not estab. leukocytes in Blood by Automated count (test code = 61087-4) Immature granulocytes 0.0 x10e3/uL 0.0-0.1 [#/volume] in Blood by Automated count (test code = 04577-5) Nucleated erythrocytes/100 adjustment clerk leukocytes [Ratio] in Blood by Automated count (test code = 04211-3) Morphology [Interpretation] in adjustment clerk Blood Narrative (test code = 93167-0) [facility] [id number] 00:00:00 Test Item Value Reference Range Interpretation Comments Cholesterol [Mass/volume] in Serum 146 mg/dL 100-199 or Plasma (test code = 2093-3) Triglyceride [Mass/volume] in Serum 152 mg/dL 0-149 H or Plasma (test code = 2571-8) Cholesterol in HDL [Mass/volume] in 41 mg/dL >39 Serum or Plasma (test code = 2085-9) Cholesterol in VLDL [Mass/volume] 26 mg/dL 5-40 in Serum or Plasma by calculation (test code = 60825-5) Cholesterol in LDL [Mass/volume] in 79 mg/dL 0-99 Serum or Plasma by calculation (test code = 39867-0) Laboratory comment [Text] in Report adjustment clerk Narrative (test code = 00387-3) Cholesterol.total/Cholesterol.in 3.6 ratio 0.0-5.0 HDL [Mass ratio] in Serum or Plasma (test code = 9830-1) Cholesterol in LDL/Cholesterol in 1.9 ratio 0.0-3.6 HDL [Mass Ratio] in Serum or Plasma (test code = 61768-0) [facility]/Hemoglobin.total in [id number] 00:00:00 Test Item Value Reference Range Interpretation Comments Hemoglobin A1c/Hemoglobin.total in 7.6 % 4.8-5.6 H Blood (test code = 4548-4) Glucose mean value [Mass/volume] in 171 mg/dL Blood Estimated from glycated hemoglobin (test code = 65417-8) [facility] Urine 2020-07-13 00:00:00 Test Item Value Reference Range Interpretation Comments Microalbumin [Mass/volume] in Urine 7.9 ug/mL not estab. (test code = 33229-1) [facility] Hospital[facility]in [Units/volume] in Serum or Plasma by Detection limit <= 0.005 mIU/[id number] 00:00:00 Test Item Value Reference Range Interpretation Comments Thyrotropin [Units/volume] in 2.180 uIU/mL 0.450-4.500 Serum or Plasma by Detection limit <= 0.005 mIU/L (test code = 65187-2) [facility], [id number] 00:00:00 Test Item Value Reference Range Interpretation Comments interpretation (test code = note interpretation) pdf (test code = pdf) . [facility] [id number] 00:00:00 Test Item Value Reference Range Interpretation Comments pdf (test code = pdf) not applicable [facility] (ID NOW RAPID TESTING) 2020-06-18 19:10:00 Test Item Value Reference Range Interpretation Comments SARS-CoV-2 Rapid ID NOW Not Detected Not Detected (test code = 89277-2) VIKI (test code = VIKI) ID NOW COVID-19 Assay is an isothermal nucleic acid amplification test intended for the qualitative detection of nucleic acid from SARS-CoV-2 viral RNA in nasopharyngeal (SENIOR ONLINE MARKETING MANAGER) specimens. It is used under Emergency Use Authorization (EUA) by FDA. The limit of detection (LOD) of the assay is 125 Genome Equivalents/mL. A positive result is indicative of the presence of SARS-CoV-2 RNA. ?Clinical correlation with patient history and other diagnostic information is necessary to determine patient infection status. A negative (Not Detected) result does not preclude SARS-CoV-2 infection. In patients with clinical symptoms and other tests that are consistent with SARS-CoV-2 infection, negative results should be treated as presumptive negative and a new specimen should be tested with alternative PCR molecular test. Invalid: Please collect a new specimen for repeat patient testing if clinically indicated. Lab Interpretation Normal (test code = 34838-5) [facility] GLUCOSE (AUTOMATED)2020-06-18 16:05:00 Test Item Value Reference Range Interpretation Comments POCT GLU (test code = 1065719846) 164 mg/dL 70-110 H Lab Interpretation (test code = Abnormal 02163-2) [facility] GLUCOSE (AUTOMATED)2020-06-18 13:20:00 Test Item Value Reference Range Interpretation Comments POCT GLU (test code = 2027600380) 127 mg/dL 70-110 H Lab Interpretation (test code = Abnormal 23437-8) [facility] GLUCOSE (AUTOMATED)2020-06-18 00:28:00 Test Item Value Reference Range Interpretation Comments POCT GLU (test code = 8948336176) 123 mg/dL 70-110 H Lab Interpretation (test code = Abnormal 05272-7) [facility] GLUCOSE (AUTOMATED)2020-06-17 21:55:00 Test Item Value Reference Range Interpretation Comments POCT GLU (test code = 3479987176) 133 mg/dL 70-110 H Lab Interpretation (test code = Abnormal 70174-8) [facility] GLUCOSE (AUTOMATED)2020-06-17 17:25:00 Test Item Value Reference Range Interpretation Comments POCT GLU (test code = 7343328952) 137 mg/dL 70-110 H Lab Interpretation (test code = Abnormal 32550-7) [facility] GLUCOSE (AUTOMATED)2020-06-17 13:44:00 Test Item Value Reference Range Interpretation Comments POCT GLU (test code = 5862559808) 118 mg/dL 70-110 H Lab Interpretation (test code = Abnormal 48761-7) [facility] GLUCOSE (AUTOMATED)2020-06-17 01:03:00 Test Item Value Reference Range Interpretation Comments POCT GLU (test code = 4936938818) 109 mg/dL 70-110 Lab Interpretation (test code = Normal 59288-4) [facility] GLUCOSE (AUTOMATED)2020-06-16 21:28:00 Test Item Value Reference Range Interpretation Comments POCT GLU (test code = 4760788269) 109 mg/dL 70-110 Lab Interpretation (test code = Normal 58073-7) [facility] GLUCOSE (AUTOMATED)2020-06-16 16:34:00 Test Item Value Reference Range Interpretation Comments POCT GLU (test code = 8912158997) 188 mg/dL 70-110 H Lab Interpretation (test code = Abnormal 01993-4) [facility] GLUCOSE (AUTOMATED)2020-06-16 12:55:00 Test Item Value Reference Range Interpretation Comments POCT GLU (test code = 7290763103) 121 mg/dL 70-110 H Lab Interpretation (test code = Abnormal 60657-6) [facility] (COOKIE)2020-06-16 11:52:43FL MODIFIED BARIUM SWALLOW HISTORY: 74 years-old; Male; history of stroke TECHNIQUE: A video swallowing exam with fluoroscopy was performed inconjunction with Speech Pathology who administered multipleconsistenciesof barium. Fluoroscopy was performed under the supervision of aradiologist. COMPARISON: None FINDINGS: Aspiration was seen with thin liquids. Penetration without aspiration wasseen with nectar thick liquids. No penetration was seen with pudding. Oneepisode of penetration without aspiration was seen to solids; repeat trialswith solids did not demonstrate penetration. Please see separate S peech Pathology report for recommendations andadditional findings. Preliminary Report Dictated by Resident: Pravin Aguilera MD., have reviewed this study and agree with theabove report.[facility] - 06/16/2020 6:53 AM CDTFL MODIFIED BARIUM SWALLOWHISTORY: 74 years-old; Male; history of strokeTECHNIQUE: A video swallowing exam with fluoroscopy was performed inconjunction with Speech Pathology who administered multiple consistenciesof barium. Fluoroscopy was performed under the supervision of aradiologist. COMPARISON: NoneFINDINGS:Aspiration was seen with thin liquids. Penetration without aspiration wasseen with nectar thick liquids. No penetration was seen with pudding. Oneepisode of penetration without aspiration was seen to solids; repeat trialswith solids did not demonstrate penetration.Please see separate Speech Pathology report for recommendations andadditional findings.Preliminary Report Dictated by Resident: Pravin Manning MD., have reviewed this study and agree with theabove report. [facility] GLUCOSE (AUTOMATED)2020-06-16 01:30:00 Test Item Value Reference Range Interpretation Comments POCT GLU (test code = 0805995954) 134 mg/dL 70-110 H Lab Interpretation (test code = Abnormal 79101-0) [facility] GLUCOSE (AUTOMATED)2020-06-15 22:53:00 Test Item Value Reference Range Interpretation Comments POCT GLU (test code = 6963942598) 127 mg/dL 70-110 H Lab Interpretation (test code = Abnormal 97560-7) [facility] GLUCOSE (AUTOMATED)2020-06-15 16:12:00 Test Item Value Reference Range Interpretation Comments POCT GLU (test code = 5837809703) 147 mg/dL 70-110 H Lab Interpretation (test code = Abnormal 76194-4) [facility] GLUCOSE (AUTOMATED)2020-06-15 12:41:00 Test Item Value Reference Range Interpretation Comments POCT GLU (test code = 6237647151) 166 mg/dL 70-110 H Lab Interpretation (test code = Abnormal 15461-9) [facility] GLUCOSE (AUTOMATED)2020-06-15 00:41:00 Test Item Value Reference Range Interpretation Comments POCT GLU (test code = 2437189901) 196 mg/dL 70-110 H Lab Interpretation (test code = Abnormal 85531-9) [facility] GLUCOSE (AUTOMATED)2020-06-14 20:55:00 Test Item Value Reference Range Interpretation Comments POCT GLU (test code = 6496030962) 141 mg/dL 70-110 H Lab Interpretation (test code = Abnormal 64881-2) [facility] METABOLIC PANEL (NA, K, CL, CO2, GLUCOSE, BUN, CREATININE, CA)2020-06-14 17:29:00 Test Item Value Reference Range Interpretation Comments NA (test code = 137 mmol/L 135-145 0391761465) K (test code = 3.6 mmol/L 3.5-5 0850400466) CL (test code = 102 mmol/L 98-108 8889935896) CO2 TOTAL (test code = 27 mmol/L 23-31 6717162965) AGAP (test code = 2-16 5945466630) BUN (test code = 13 mg/dL 7-23 5749643726) GLUCOSE (test code = 132 mg/dL 70-110 H 3823316385) CREATININE (test code = 0.71 mg/dL 0.6-1.25 1374750981) CALCIUM (test code = 9.3 mg/dL 8.6-10.6 6184621789) eGFR Calculation mL/min/1.73m2 (Non-) (test code = 3233322592) eGFR Calculation mL/min/1.73m2 () (test code = 7994182673) VIKI (test code = VIKI) Association of Glomerular Filtration Rate (GFR) and Staging of Kidney Disease* + --+ --+ ------+| GFR (mL/min/1.73 m2) ?| With Kidney Damage ?| ?Without Kidney Damage+ --------+ --------+ +| ?>90 ?| ?Stage one ?| ? Normal ?+ ---+ ---+ -------+| ?60-89 ?| ?Stage two ?| ? Decreased GFR ? + --+ --+ ------+| ?30-59 ?| ?Stage three ?| ? Stage three ? + --+ --+ ------+| ?15-29 ?| ?Stage four ? | ? Stage four ?+ ---+ ---+ -------+| ?<15 (or dialysis) ? ?| ?Stage five ? | ? Stage five ?+ ---+ ---+ -------+ *Each stage assumes the associated GFR level has been in effect for at least three months. ?Stages 1 to 5, with or without kidney disease, indicate chronic kidney disease. Notes: Determination of stages one and two (with eGFR >59mL/min/1.73 m2) requires estimation of kidney damage for at least three months as defined by structural or functional abnormalities of the kidney, manifested by either:Pathological abnormalities or Markers of kidney damage (including abnormalities in the composition of the blood or urine or abnormalities in imaging tests). Lab Interpretation Abnormal (test code = 64499-3) [facility] CenterHEPAT[facility] FUN[facility] PAN[facility] (87280[facility] (ALB,T.PRO,BILI T,BU/BC,ALT,AST,ALK PHOS)2020-06-14 17:29:00 Test Item Value Reference Range Interpretation Comments TOTAL BILI (test code = 1813524481) 0.6 mg/dL 0.1-1.1 BILI UNCON (test code = 4447442805) 0.6 mg/dL 0.1-1.1 BILI CONJ (test code = 4064831751) 0.0 mg/dL 0-0.3 T PROTEIN (test code = 7841806228) 7.1 g/dL 6.3-8.2 ALBUMIN (test code = 2321366459) 3.9 g/dL 3.5-5 ALK PHOS (test code = 1842150630) 88 U/L 34-122 ALTv (test code = 1742-6) 35 U/L 5-50 AST(SGOT) (test code = 6594555773) 34 U/L 13-40 Lab Interpretation (test code = Normal 81280-5) [facility] CenterMAG[facility]UM2020-08-17 17:29:00 Test Item Value Reference Range Interpretation Comments MAGNESIUM (test code = 3110244721) 1.8 mg/dL 1.7-2.4 Lab Interpretation (test code = Normal 16122-7) [facility] [id number] 17:05:00 Test Item Value Reference Range Interpretation Comments AMMONIA (test code = 5999880353) <9 9-33 L Lab Interpretation (test code = Abnormal 86781-8) [facility] CenterP[facility])2020-06-14 17:01:00 Test Item Value Reference Range Interpretation Comments POCT GLU (test code = 2541745794) 119 mg/dL 70-110 H Lab Interpretation (test code = Abnormal 36483-1) [facility] WITH [id number] 17:00:00 Test Item Value Reference Range Interpretation Comments WBC (test code = See_Comment [Automated 4890-2) message] The sy stem which generated this result transmitted reference range : 4.20 - 10.70 10*3/?L. The reference range was not used to interpret this result as normal/abnormal . RBC (test code = See_Comment [Automated 292-8) message] The sy stem which generated this result transmitted reference range : 4.26 - 5.52 10*6/?L. The reference range was not used to interpret this result as normal/abnormal . HGB (test code = 15.3 g/dL 12.2-16.4 718-7) HCT (test code = 46.3 % 38.4-49.3 4544-3) MCV (test code = 90.4 fL 81.7-95.6 787-2) MCH (test code = 29.9 pg 26.1-32.7 785-6) MCHC (test code = 33.0 g/dL 31.2-35 786-4) RDW-SD (test code = 41.9 fL 38.5-51.6 98323-2) RDW-CV (test code = 12.7 % 12.1-15.4 788-0) PLT (test code = See_Comment [Automated 777-3) message] The sy stem which generated this result transmitted reference range : 150 - 328 10*3/ ?L. The reference r nicole was not used to interpret this result as normal/abnormal . MPV (test code = 10.8 fL 9.8-13 70807-8) NRBC/100 WBC (test See_Comment [Automat ed code = 0250401603) message] The system which generated this result transmitted reference range : 0.0 - 10.0 /100 WBCs. The refer ence range was not u sed to interpret th is result as normal/abnormal . NRBC x10^3 (test code <0.01 See_Comment [Auto mated = 9283677968) message] The s ystem which generated this result transmitted reference range : 10*3/?L. The reference range was not used to interpret this result as normal/abnormal . GRAN MAT (NEUT) % 70.5 % (test code = 770-8) IMM GRAN % (test code 0.20 % = 5308013645) LYMPH % (test code = 19.7 % 736-9) MONO % (test code = 8.4 % 5905-5) EOS % (test code = 0.8 % 713-8) BASO % (test code = 0.4 % 706-2) GRAN MAT x10^3(ANC) 3.43 10*3/uL 1.99-6.95 (test code = 9307825318) IMM GRAN x10^3 (test <0.03 0-0.06 code = 3733597834) LYMPH x10^3 (test code 0.96 10*3/uL 1.09-3.23 L = 731-0) MONO x10^3 (test code 0.41 10*3/uL 0.36-1.02 = 742-7) EOS x10^3 (test code = 0.04 10*3/uL 0.06-0.53 L 711-2) BASO x10^3 (test code <0.03 0.01-0.09 = 704-7) Lab Interpretation Abnormal (test code = 37563-4) [facility] GLUCOSE (AUTOMATED)2020-06-14 12:51:00 Test Item Value Reference Range Interpretation Comments POCT GLU (test code = 0163518776) 113 mg/dL 70-110 H Lab Interpretation (test code = Abnormal 07879-8) [facility] GLUCOSE (AUTOMATED)2020-06-14 01:05:00 Test Item Value Reference Range Interpretation Comments POCT GLU (test code = 2647581583) 131 mg/dL 70-110 H Lab Interpretation (test code = Abnormal 83874-7) [facility] CenterElectro[facility] (EEG) - Duration of test: 20-60 [id number] 00:00:00Date and Time of Procedure: 06/14/2020, 9:16:43- 9:37:48 REPORT TECHNICAL SUMMARY: The EEG was recorded digitally. Electrodes were applied using the International 10/20 System of electrode placement. Eye movements and rhythm strip ECG were monitored on separate channels of the ongoing EEG recording. The occipital dominant rhythm consists of moderate amplitude 7-8 Hz activity. More anteriorly, similar as well as faster frequencies are present, including low amplitude 18-22 Hz activities in the ante rior leads. There is an excessive amount of 4-8 Hz activity diffusely. Drowsiness and sleep do not reveal additional abnormalities. Photic stimulation does not elicit additional abnormalities. IMPRESSION: This EEG is abnormal due to mild diffuse slowing, which can be suggestive of a mild diffuse disturbance in cerebral function but can also be related to sedating medications. No electrographic seizures or epileptiform abnormalities are seen. The absence of epileptiform abnormalities in one EEG does not necessarily rule out a diagnosis of epilepsy or the potential for epileptic seizures, however.The diagnostic sensitivity can be enhanced by a repeat study, which would be appropriate if clinically indicated. 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 EXAMINATION: MR BRAINWO CONTRAST HISTORY: acute confusion, Hx of stroke COMPARISON: ?06/12/20 CT. TECHNIQUE: Multiplanarand multisequence MRI imaging of the brain wasobtained without contrast. FINDINGS: There are foci ofincreased T2/FLAIR signal in the white matter which arenonspecific but likely sequelae of chronic ischemia.Subacute to chronic right basal ganglia/luis radiata infarct with exvacuo dilatation of the right lateral ventricle, abnormal susceptibility,and intrinsic T1 shortening.No hydrocephalus. No midline shift or herniation.No acute infarct. The calvarium is normal. ?The orbits are unremarkable. Trace paranasalsinus mucosal thickening. [facility], Radiant Results Inft User - 06/13/2020 4:18 PM CDTEXAMINATION: MR BRAIN WO CONTRASTHISTORY: acute confusion, Hx of stroke COMPARISON: 06/12/20 CT. TECHNIQUE: Multiplanar and multisequence MRI imaging of the brain wasobtained without contrast.FINDINGS:Thereare foci of increased T2/FLAIR signal in the white matter which arenonspecific but likely sequelae of chronic ischemia.Subacute to chronic right basal ganglia/luis radiata infarct with exvacuo dilatation of the right lateral ventricle, abnormal susceptibility,and intrinsic T1 shortening.No hydrocephalus. No midline shift or herniation.No acute infarct. The calvarium is normal. The orbits are unremarkable. Trace paranasalsinus mucosal thickening. IMPRESSIONSubacute to chronic right basal ganglia/luis radiata hemorrhagic infarct.[facility] CenterCT ANGIO[facility] [id number] 21:04:39 The posterior circulation demonstrates stenosis at the origin of thevertebral arteries with dominant left vertebral artery. There is mildstenosis from right V3 segment of marked stenosis of right V4 segment.There is marked stenosis of the left vertebral artery as it punctures thedura with poststenotic dilatation versus pseudoaneurysm and marked stenosisof left V4 segment. Marked focal stenosis of inferior basilar artery anddifficult to visualize opacification of the basilar artery superior to thetakeoff of the superior cerebellar arteries with origin of thebilateral posterior cerebral arteries. The anterior circulation demonstrates less than 50% stenosis of theproximal internal carotid arteries by NASCET criteria. There isatherosclerosis of the intracranial internal carotid arteries with moderateright cavernous carotid and left paraclinoid internal carotid arterystenosis. Hypoplastic right A1 segment. EXAMINATION: ?CT ANGIOGRAM NECK, CT ANGIOGRAM HEAD HISTORY: Neuro deficit(s), subacute TECHNIQUE: CT angiography of the brain was performed and reviewed in multiple planes.Two dimensional multiplanar reformatted images were generated and submittedto PACS. ?3-D rendering was performedwith physician participation andsupervision.CT angiography of the neck was performed using 1.25 mm thick axial slicesand reviewed in multiple planes. Two dimensional multiplanar reformattedimages were generated and submitted to PACS.A total of 100 mL Omnipaque ?was injected intravenously. ? COMPARISON: None. FINDINGS: CTA of the [place] reveals atherosclerosis of the intracranialinternal carotid arteries with moderate right cavernous and moderate leftparaclinoid stenosis. Focal inferior basilar artery stenosis. The basilarartery distal to where superior cerebellar arteries take off is notwellopacified with origin of the bilateral posterior cerebral arteries.Opacification of portion of left P1 segment. Hypoplastic right A1 segment.No definite CT-identifiable aneurysm is present. ?Conventional angiographyis more sensitive for the detection of small aneurysms. CTA of the neck demonstrates that the origins of the great vessels arepatent. Atherosclerosis of the aortic arch. ?Conventional arch anatomy. Less than 50% stenosis of the proximal internal carotid arteries by NASCETcriteria. There is atherosclerosis at the origin of the bilateral vertebralarteries. Dominant left vertebralartery. There is stenosis of right P8weiljgc. Marked stenosis of right V4 segment. There is stenosisof the leftvertebral artery as it punctures the dura with poststenotic dilatation.Marked stenosis ofleft V4 segment. No aneurysm is seen. There are degenerative changes of the spine. [facility], Radiant Results Inft User - 06/13/2020 4:05 PM CDTEXAMINATION: CT ANGIOGRAM NECK, CT ANGIOGRAM HEADHISTORY: Neuro deficit(s), subacute TECHNIQUE:CT angiography of the brain was performed and reviewed in multiple planes.Two dimensional multiplanar reformatted images were generated and submittedto PACS. 3-D rendering was performed with physician participation andsupervision.CT angiography of the neck was performed using 1.25 mm thick axial slicesand reviewed in multiple planes. Two dimensional multiplanar refo rmattedimages were generated and submitted to PACS.A total of 100 mL Omnipaque was injected intravenously. COMPARISON: None.FINDINGS: CTA of the [place] reveals atherosclerosis of the intracranialinternal carotid arteries with moderate right cavernous and moderate leftparaclinoid stenosis. Focal inferior basilar artery stenosis. The basilarartery distal to where superior cerebellar arteries take off is not wellopacified with origin of the bilateral posterior cerebral arteries.Opacification of portion of left P1 segment. Hypoplastic right A1 segment.No definite CT-identifiable aneurysm is present. Conventional angiographyis more sensitive for the detection of small aneurysms.CTA of the neck demonstrates that the origins of the great vessels arepatent. Atherosclerosis of the aortic arch. Conventional arch anatomy. Less than 50% stenosis of the proximal internal carotid arteries by NASCETcriteria. There is atherosclerosis at the origin of the bilateral vertebralarteries. Dominant left vertebral artery. There is stenosis of right H9lzicqnx. Marked stenosis of right V4 segment. There is stenosis of the leftvertebral artery as it punctures the dura with poststenotic dilatation.Marked stenosis of left V4 segment. No aneurysm is seen.There are degenerative changes of the spine. IMP RESSIONThe posterior circulation demonstrates stenosis at the origin of thevertebral arteries with dominant left vertebral artery. There is mildstenosis from right V3 segment of marked stenosis of right V4 segment.There is marked stenosis of the left vertebral artery as it punctures thedura with poststenotic dilatation versus pseudoaneurysm and marked stenosisof left V4 segment. Marked focal stenosisof inferior basilar artery anddifficult to visualize opacification of the basilar artery superior tothetakeoff of the superior cerebellar arteries with origin of thebilateral posterior cerebral arteries.The anterior circulation demonstrates less than 50% stenosis of theproximal internal carotid arteries by NASCET criteria. There isatherosclerosis of the intracranial internal carotid arteries with moderateright cavernous carotid and left paraclinoid internal carotid arterystenosis. Hypoplasticright A1 segment. [facility] [id number] 21:04:39 The posterior circulation demonstrates stenosis at the origin of thevertebral arteries with dominant left vertebral artery. There is mildstenosis from right V3 segment of marked stenosis of right V4 segment.There is marked stenosis of the left vertebral artery as it punctures thedura with poststenotic dilatation versus pseudoaneurysm and marked stenosisof left V4 segment. Marked focal stenosis of inferior basilar artery anddifficult to visualize opacification of the basilar artery superior to thetakeoff of the superior cerebellar arteries with origin of thebilateral posterior cerebral arteries. The anterior circulation demonstrates less than 50% stenosis of theproximal internal carotid arteries by NASCET criteria. There isatherosclerosis of the intracranial internal carotid arteries with moderateright cavernous carotid and left paraclinoid internal carotid arterystenosis. Hypoplastic right A1 segment. EXAMINATION: ?CT ANGIOGRAM NECK, CT ANGIOGRAM HEAD HISTORY: Neuro deficit(s), subacute TECHNIQUE: CT angiography of the brain was performed and reviewed in multiple planes.Two dimensional multiplanar reformatted images were generated and submittedto PACS. ?3-D rendering was performedwith physician participation andsupervision.CT angiography of the neck was performed using 1.25 mm thick axial slicesand reviewed in multiple planes. Two dimensional multiplanar reformattedimages were generated and submitted to PACS.A total of 100 mL Omnipaque ?was injected intravenously. ? COMPARISON: None. FINDINGS: CTA of the [place] reveals atherosclerosis of the intracranialinternal carotid arteries with moderate right cavernous and moderate leftparaclinoid stenosis. Focal inferior basilar artery stenosis. The basilarartery distal to where superior cerebellar arteries take off is notwellopacified with origin of the bilateral posterior cerebral arteries.Opacification of portion of left P1 segment. Hypoplastic right A1 segment.No definite CT-identifiable aneurysm is present. ?Conventional angiographyis more sensitive for the detection of small aneurysms. CTA of the neck demonstrates that the origins of the great vessels arepatent. Atherosclerosis of the aortic arch. ?Conventional arch anatomy. Less than 50% stenosis of the proximal internal carotid arteries by NASCETcriteria. There is atherosclerosis at the origin of the bilateral vertebralarteries. Dominant left vertebralartery. There is stenosis of right G0jyfrofa. Marked stenosis of right V4 segment. There is stenosisof the leftvertebral artery as it punctures the dura with poststenotic dilatation.Marked stenosis ofleft V4 segment. No aneurysm is seen. There are degenerative changes of the spine. [facility], Radiant Results Inft User - 06/13/2020 4:05 PM CDTEXAMINATION: CT ANGIOGRAM NECK, CT ANGIOGRAM HEADHISTORY: Neuro deficit(s), subacute TECHNIQUE:CT angiography of the brain was performed and reviewed in multiple planes.Two dimensional multiplanar reformatted images were generated and submittedto PACS. 3-D rendering was performed with physician participation andsupervision.CT angiography of the neck was performed using 1.25 mm thick axial slicesand reviewed in multiple planes. Two dimensional multiplanar refo rmattedimages were generated and submitted to PACS.A total of 100 mL Omnipaque was injected intravenously. COMPARISON: None.FINDINGS: CTA of the [place] reveals atherosclerosis of the intracranialinternal carotid arteries with moderate right cavernous and moderate leftparaclinoid stenosis. Focal inferior basilar artery stenosis. The basilarartery distal to where superior cerebellar arteries take off is not wellopacified with origin of the bilateral posterior cerebral arteries.Opacification of portion of left P1 segment. Hypoplastic right A1 segment.No definite CT-identifiable aneurysm is present. Conventional angiographyis more sensitive for the detection of small aneurysms.CTA of the neck demonstrates that the origins of the great vessels arepatent. Atherosclerosis of the aortic arch. Conventional arch anatomy. Less than 50% stenosis of the proximal internal carotid arteries by NASCETcriteria. There is atherosclerosis at the origin of the bilateral vertebralarteries. Dominant left vertebral artery. There is stenosis of right V8cfoulud. Marked stenosis of right V4 segment. There is stenosis of the leftvertebral artery as it punctures the dura with poststenotic dilatation.Marked stenosis of left V4 segment. No aneurysm is seen.There are degenerative changes of the spine. IMP RESSIONThe posterior circulation demonstrates stenosis at the origin of thevertebral arteries with dominant left vertebral artery. There is mildstenosis from right V3 segment of marked stenosis of right V4 segment.There is marked stenosis of the left vertebral artery as it punctures thedura with poststenotic dilatation versus pseudoaneurysm and marked stenosisof left V4 segment. Marked focal stenosisof inferior basilar artery anddifficult to visualize opacification of the basilar artery superior tothetakeoff of the superior cerebellar arteries with origin of thebilateral posterior cerebral arteries.The anterior circulation demonstrates less than 50% stenosis of theproximal internal carotid arteries by NASCET criteria. There isatherosclerosis of the intracranial internal carotid arteries with moderateright cavernous carotid and left paraclinoid internal carotid arterystenosis. Hypoplasticright A1 segment. [facility] GLUCOSE (AUTOMATED)2020-06-13 16:34:00 Test Item Value Reference Range Interpretation Comments POCT GLU (test code = 8685509101) 177 mg/dL 70-110 H Lab Interpretation (test code = Abnormal 47305-3) [facility] GLUCOSE (AUTOMATED)2020-06-13 12:50:00 Test Item Value Reference Range Interpretation Comments POCT GLU (test code = 3467865666) 124 mg/dL 70-110 H Lab Interpretation (test code = Abnormal 61044-0) [facility] WITHOUT [id number] 09:52:00 Test Item Value Reference Range Interpretation Comments WBC (test code = See_Comment [Automated message] The 6690-2) system which nerated this result tra nsmitted reference range : 4.20 - 10.70 10*3/?L. The reference range was not used to interpr et this result as normal/abnormal . RBC (test code = See_Comment [Automated message] The 789-8) system which RABT nerated this result tra nsmitted reference range : 4.26 - 5.52 10*6/?L. T he reference range was not used to interpr et this result as normal/abnormal . HGB (test code = 14.7 g/dL 12.2-16.4 718-7) HCT (test code = 44.8 % 38.4-49.3 4544-3) MCH (test code = 30.2 pg 26.1-32.7 785-6) MCV (test code = 92.2 fL 81.7-95.6 787-2) MCHC (test code = 32.8 g/dL 31.2-35 786-4) PLT (test code = See_Comment [Automated message] The 777-3) system which RABT nerated this result tra nsmitted reference range : 150 - 328 10*3/?L. Th e reference range was not used to interpr et this result as normal/abnormal . MPV (test code = 10.6 fL 9.8-13 23824-8) RDW-CV (test code = 12.7 % 12.1-15.4 788-0) RDW-SD (test code = 42.8 fL 38.5-51.6 87376-9) NRBC x10^3 (test <0.01 See_Comment [Automated message] The code = 9303295666) system [employer] generated this result tra nsmitted reference range : 10*3/?L. The reference r nicole was not used to int erpret this result as normal/abnormal . NRBC/100 WBC (test See_Comment [Automat ed message] The code = 8497653016) system [employer] generated this result tra nsmitted reference range : 0.0 - 10.0 /100 WBCs. The reference range was not used to interpr et this result as normal/abnormal . IPF % (test code = 2548471201) [facility] Center[facility]inalysis2020[facility] 09:08:00 Test Item Value Reference Range Interpretation Comments APPEARANCE (test code = Clear Clear 2223167509) COLOR (test code = Yellow Yellow 1554948268) PH (test code = 4.8-8.0 5785605307) SP GRAVITY (test code = 1.003-1.030 H 1803745177) GLU U QUAL (test code = Normal Normal 3315239077) BLOOD (test code = Negative Negative 4224824146) KETONES (test code = Negative Negative 1688587849) PROTEIN (test code = Negative Negative 2887-8) UROBILIN (test code = Normal Normal 4096909909) BILIRUBIN (test code = Negative Negative 8944014713) NITRITE (test code = Negative Negative 6070131085) LEUK ARIELA (test code = Negative Negative 0011657054) RBC/HPF (test code = See_Comment [Autom ated message] 5514453185) The system [employer] generated this result transmitted ref erence range: 0 - 3 HP F. The reference range was not used to int erpret this result as normal/abnormal . WBC/HPF (test code = See_Comment [Autom ated message] 3146506256) The system [employer] generated this result transmitted ref erence range: 0 - 5 HP F. The reference range was not used to int erpret this result as normal/abnormal . BACTERIA (test code = Negative Negative 3817713530) MUCOUS (test code = Slight Negative LPF A 8491867022) Lab Interpretation (test Abnormal code = 74291-0) [facility] CenterGlycosylated Hemoglobin (A1C)2020-06-13 05:44:00 Test Item Value Reference Range Interpretation Comments HGB A1C (test code = 8.0 % 4-6 H 4548-4) VIKI (test code = VIKI) %A1C (NGSP) Interpretation (ADA)4.8-5.6 ? ? Normal or (Non-Diabetic Range)5.7-6.4 ? ? Increased Risk (Pre-Diabetic)>6.5 ?Diabetes Indicated Lab Interpretation Abnormal (test code = 02095-9) [facility] CenterMAGN[facility]IUM2020-08-16 04:25:00 Test Item Value Reference Range Interpretation Comments MAGNESIUM (test code = 1.6 mg/dL 1.7-2.4 L Sligh t hemolysis 8034490928) Lab Interpretation (test Abnormal code = 83433-1) [facility] (35342)(TOTAL CHOLESTEROL, TRIGLYCERIDES, HDL)2020-06-13 04:25:00 Test Item Value Reference Range Interpretation Comments CHOL (test code = 132 mg/dL 120-200 1332110981) HDL (test code = 26 mg/dL >40 L 1847773306) HDLC RATIO (test code = See_Comment H [Au tomated message] 7078695605) The system [employer] generated this result transmit cassandra reference range : <=5.0. The refe rence range was not u sed to interpret th is result as normal/abnormal . TRIG (test code = 140 mg/dL 30-170 3546120087) LDL CHOL (test code = 78 mg/dL See_Comment [Auto mated message] 18579-3) The system [employer] generated this result transmit cassandra reference range : <=160. The refe rence range was not u sed to interpret th is result as normal/abnormal . VLDL (test code = 28 mg/dL 5-60 9447758380) Lab Interpretation (test Abnormal code = 45618-0) [facility]PO[facility]2020-06-13 03:11:00 Test Item Value Reference Range Interpretation Comments POCT GLU (test code = 6796647282) 121 mg/dL 70-110 H Lab Interpretation (test code = Abnormal 94018-2) [facility] CenterCT Head W/O [id number] 21:46:08 No acute intracranial hemorrhage or mass effect. Remote right basal ganglia infarct. Preliminary Report Dictated by Resident: Sun Rodriguez MD., have reviewed this study and agree with theabove report.CT HEAD WO CONTRAST HISTORY: Altered mental status (AMS), unclear cause , confusion. COMPARISON: None TECHNIQUE: Contiguous axial imaging to the base of skull was obtained with2.5 mm slices without intravenous contrast. 5 mm axial, coronal, andsagittal reformats were obtained. FINDINGS: The ventricles and cerebral sulci are normal in caliber and configuration.No hydrocephalus, midline shift or pathological extra-axial fluidcollection is present. The basal cisterns are unremarkable. There is no acute intracranial hemorrhage or significant mass effect. Focalregion of hypoattenuation in the right internal capsule likely representsequela from prior lacunar infarcts. No evidence of h emorrhagictransformation. Probable chronic ischemic changes of the white matter.Intracranial atherosclerosis. The mastoid air cells and paranasal air sinuses are clear. The calvariumand central skull base are unremarkable. [facility], Radiant Results Inft User - 06/12/2020 4:47 PM CDTCT HEAD WO CONTRASTHISTORY: Altered mental status (AMS), unclear cause , confusion. COMPARISON: NoneTECHNIQUE: Contiguous axial imaging to the base of skull was obtained with2.5 mm slices without intravenous contrast. 5 mm axial, coronal, andsagittal reformats were obtained.FINDINGS:The ventricles and cerebral sulci are normal in caliber and configuration.No hydrocephalus, midline shift or pathological extra- axial fluidcollection is present. The basal cisterns are unremarkable.There is no acute intracranial hemorrhage orsignificant mass effect. Focalregion of hypoattenuation in the right internal capsule likely representsequela from prior lacunar infarcts. No evidence of hemorrhagictransformation. Probable chronic ischemic changes of the white matter.Intracranial atherosclerosis. The mastoid air cells and paranasal air sinuses are clear. The calvariumand central skull base are unremarkable.IMPRESSIONNo acute intracranial hemorrhage or mass effect.Remote right basal ganglia infarct.Preliminary Report Dictated by Resclair dent: Sun Mackey MD., have reviewed this study and agree with theabove report.[facility] 1 [id number] 20:40:41 No acute intrathoracic abnormality.PROCEDURE: XR CHEST 1 VW CLINICAL INDICATION: AMS COMPARISON: None FINDINGS: The lungs are clear. No pleural effusion or pneumothorax is seen. The cardiomediastinalsilhouette is normal. No acute bony abnormality. [facility], Radiant Results Inft User - 06/12/2020 3:41 PM CDTPROCEDURE: XR CHEST 1 VWCLINICAL INDICATION: AMS COMPARISON: NoneFINDINGS:The lungs are clear. No pleural effusion or pneumothorax is seen. The cardiomediastinal silhouette is normal. No acute bony abnormality.IMPRESSIONNo acute intrathoracic abnormality.[facility] 20:24[facility]00 Test Item Value Reference Range Interpretation Comments TROPONIN I (test <0.012 See_Comment [Automated code = 1456850556) message] The system which generated this result transmitted reference range : <=0.034 ng/mL. The reference range was not used to interpr et this result as normal/abnormal . VIKI (test code = Equal or Less than VIKI) 0.034 ng/ml---Normal ?Note: Cardiac troponin begins to rise 3-4 hours after the onset of ischemia. Repeat in 4-6 hours if the sample was drawn within 3-4 hours of the onset of the symptom and found normal. Between 0.035 and 0.120 ng/mL--- Borderline. Questionable myocardial injury or necrosis ? ?Note: Serial measurement may be necessary to confirm or exclude the diagnosis of myocardial injury or necrosis; Clinical correlation (symptoms, EKGs, imaging studies, and others) required; Repeat in 4-6 hours if clinically indicated. ? Equal or Higher than 0.121 ng/mL---Abnormal. Myocardial Injury or Necrosis Likely ? Biotin has been reported to cause a negative bias, interpret results relative to patient's use of biotin. ? Lab Interpretation Normal (test code = 20796-4) [facility] CenterCOVID-19 (ID NOW RAPID TESTING)2020-06-12 20:24:00 Test Item Value Reference Range Interpretation Comments SARS-CoV-2 Rapid ID NOW Not Detected Not Detected (test code = 08199-3) VIKI (test code = VIKI) ID NOW COVID-19 Assay is an isothermal nucleic acid amplification test intended for the qualitative detection of nucleic acid from SARS-CoV-2 viral RNA in nasopharyngeal (SENIOR ONLINE MARKETING MANAGER) specimens. It is used under Emergency Use Authorization (EUA) by FDA. The limit of detection (LOD) of the assay is 125 Genome Equivalents/mL. A positive result is indicative of the presence of SARS-CoV-2 RNA. ?Clinical correlation with patient history and other diagnostic information is necessary to determine patient infection status. A negative (Not Detected) result does not preclude SARS-CoV-2 infection. In patients with clinical symptoms and other tests that are consistent with SARS-CoV-2 infection, negative results should be treated as presumptive negative and a new specimen should be tested with alternative PCR molecular test. Invalid: Please collect a new specimen for repeat patient testing if clinically indicated. Lab Interpretation Normal (test code = 91562-1) [facility] CenterHepatic Function Panel (ALB, T.PRO, BILI T, BU/BC, ALT, AST, ALK PHOS)2020-06-12 20:13:00 Test Item Value Reference Range Interpretation Comments TOTAL BILI (test code = 5392053778) 0.6 mg/dL 0.1-1.1 BILI UNCON (test code = 8949610321) 0.7 mg/dL 0.1-1.1 BILI CONJ (test code = 8601277083) 0.0 mg/dL 0-0.3 T PROTEIN (test code = 2486334021) 8.0 g/dL 6.3-8.2 ALBUMIN (test code = 6712963753) 4.3 g/dL 3.5-5 ALK PHOS (test code = 1100656585) 79 U/L 34-122 ALTv (test code = 1742-6) 52 U/L 5-50 H AST(SGOT) (test code = 3785518133) 28 U/L 13-40 Lab Interpretation (test code = Abnormal 60071-1) [facility] Metabolic Panel (NA, K, CL, CO2, GLUCOSE, BUN, CREATININE, CA)2020-06-12 20:12:00 Test Item Value Reference Range Interpretation Comments NA (test code = 136 mmol/L 135-145 1425946968) K (test code = 4.0 mmol/L 3.5-5 5328705417) CL (test code = 101 mmol/L 98-108 7382119057) CO2 TOTAL (test code = 28 mmol/L 23-31 2394577023) AGAP (test code = 2-16 6187979701) BUN (test code = 14 mg/dL 7-23 0102747392) GLUCOSE (test code = 172 mg/dL 70-110 H 5454125482) CREATININE (test code = 0.68 mg/dL 0.6-1.25 5379923237) CALCIUM (test code = 9.4 mg/dL 8.6-10.6 9572020512) eGFR Calculation mL/min/1.73m2 (Non-) (test code = 6156972315) eGFR Calculation mL/min/1.73m2 () (test code = 2514622689) VIKI (test code = VIKI) Association of Glomerular Filtration Rate (GFR) and Staging of Kidney Disease* + --+ --+ ------+| GFR (mL/min/1.73 m2) ?| With Kidney Damage ?| ?Without Kidney Damage+ --------+ --------+ +| ?>90 ?| ?Stage one ?| ? Normal ?+ ---+ ---+ -------+| ?60-89 ?| ?Stage two ?| ? Decreased GFR ? + --+ --+ ------+| ?30-59 ?| ?Stage three ?| ? Stage three ? + --+ --+ ------+| ?15-29 ?| ?Stage four ? | ? Stage four ?+ ---+ ---+ -------+| ?<15 (or dialysis) ? ?| ?Stage five ? | ? Stage five ?+ ---+ ---+ -------+ *Each stage assumes the associated GFR level has been in effect for at least three months. ?Stages 1 to 5, with or without kidney disease, indicate chronic kidney disease. Notes: Determination of stages one and two (with eGFR >59mL/min/1.73 m2) requires estimation of kidney damage for at least three months as defined by structural or functional abnormalities of the kidney, manifested by either:Pathological abnormalities or Markers of kidney damage (including abnormalities in the composition of the blood or urine or abnormalities in imaging tests). Lab Interpretation Abnormal (test code = 45680-7) [facility] with [id number] 20:03:00 Test Item Value Reference Range Interpretation Comments WBC (test code = See_Comment [Automated 4190-2) message] The sy stem which generated this result transmitted reference range : 4.20 - 10.70 10*3/?L. The reference range was not used to interpret this result as normal/abnormal . RBC (test code = See_Comment [Automated 789-8) message] The sy stem which generated this result transmitted reference range : 4.26 - 5.52 10*6/?L. The reference range was not used to interpret this result as normal/abnormal . HGB (test code = 14.8 g/dL 12.2-16.4 718-7) HCT (test code = 44.3 % 38.4-49.3 4544-3) MCV (test code = 90.8 fL 81.7-95.6 787-2) MCH (test code = 30.3 pg 26.1-32.7 785-6) MCHC (test code = 33.4 g/dL 31.2-35 786-4) RDW-SD (test code = 41.6 fL 38.5-51.6 48405-6) RDW-CV (test code = 12.6 % 12.1-15.4 788-0) PLT (test code = See_Comment [Automated 777-3) message] The sy stem which generated this result transmitted reference range : 150 - 328 10*3/ ?L. The reference r nicole was not used to interpret this result as normal/abnormal . MPV (test code = 10.6 fL 9.8-13 97145-6) NRBC/100 WBC (test See_Comment [Automat ed code = 3929896923) message] The system which generated this result transmitted reference range : 0.0 - 10.0 /100 WBCs. The refer ence range was not u sed to interpret th is result as normal/abnormal . NRBC x10^3 (test code <0.01 See_Comment [Auto mated = 6163147627) message] The s ystem which generated this result transmitted reference range : 10*3/?L. The reference range was not used to interpret this result as normal/abnormal . GRAN MAT (NEUT) % 77.2 % (test code = 770-8) IMM GRAN % (test code 0.30 % = 9596699608) LYMPH % (test code = 14.1 % 736-9) MONO % (test code = 7.8 % 5905-5) EOS % (test code = 0.3 % 713-8) BASO % (test code = 0.3 % 706-2) GRAN MAT x10^3(ANC) 4.43 10*3/uL 1.99-6.95 (test code = 7138726682) IMM GRAN x10^3 (test <0.03 0-0.06 code = 4292989452) LYMPH x10^3 (test code 0.81 10*3/uL 1.09-3.23 L = 731-0) MONO x10^3 (test code 0.45 10*3/uL 0.36-1.02 = 742-7) EOS x10^3 (test code = <0.03 0.06-0.53 L 711-2) BASO x10^3 (test code <0.03 0.01-0.09 = 704-7) Lab Interpretation Abnormal (test code = 92675-6) [facility] [id number] 11:59:00 Test Item Value Reference Range Interpretation Comments POC-GLUCOSE METER 158 mg/dL 70-110 H : TESTED A T [facility] 6720 (BEAKER) (test code = [facility] Project Manager [facility], 1538) 40398: Senior Software Developer/Techni dipak ID = [id number] for ELDA MARTELL POCT-GLUCOSE [id number] 11:59:00 Test Item Value Reference Range Interpretation Comments POC-GLUCOSE METER 137 mg/dL 70-110 H : TESTED A T [facility] 6720 (BEAKER) (test code = [facility] Project Manager [facility], 1538) 42171: Senior Software Developer/Techni dipak ID = [id number] for STEPHAN AUSTIN POCT-GLUCOSE [id number] 11:59:00 Test Item Value Reference Range Interpretation Comments POC-GLUCOSE METER 157 mg/dL 70-110 H : TESTED A T [facility] 6720 (BEAKER) (test code = [facility], 1538) 93238: Senior Software Developer/Techni dipak ID = [id number] for Claire Edwards POCT-GLUCOSE [id number] 11:58:00 Test Item Value Reference Range Interpretation Comments POC-GLUCOSE METER 162 mg/dL 70-110 H : TESTED A T [facility] 6720 (BEAKER) (test code = [facility], 1538) 90274: Senior Software Developer/Techni dipak ID = [id number] for Gavino Gordono POCT-GLUCOSE [id number] 11:57:00 Test Item Value Reference Range Interpretation Comments POC-GLUCOSE METER 192 mg/dL 70-110 H : TESTED A T [facility] 6720 (BEAKER) (test code = [facility], 1538) 69455: Senior Software Developer/Techni dipak ID = [id number] for DE NNIS, YISEL POCT-GLUCOSE [id number] 12:55:00 Test Item Value Reference Range Interpretation Comments POC-GLUCOSE METER 164 mg/dL 70-110 H : TESTED A T [facility] 6720 (BEAKER) (test code [facility], = 1538) 38766: Senior Software Developer/Techni dipak ID = [id number] for TSEG GAI, TSIGHEREDA POCT-GLUCOSE [id number] 09:45:00 Test Item Value Reference Range Interpretation Comments POC-GLUCOSE METER 138 mg/dL 70-110 H : TESTED A T [facility] 6720 (BEAKER) (test code [facility], = 1538) 73292: Senior Software Developer/Techni dipak ID = [id number] for TSEG GAI, TSIGHEREDA POCT-GLUCOSE [id number] 21:57:00 Test Item Value Reference Range Interpretation Comments POC-GLUCOSE METER 149 mg/dL 70-110 H : TESTED A T [facility] 6720 (BEAKER) (test code = [facility], 1538) 03041: Senior Software Developer/Techni dipak ID = [id number] for DE NNIS, YISEL POCT-GLUCOSE [id number] 17:23:00 Test Item Value Reference Range Interpretation Comments POC-GLUCOSE METER 201 mg/dL 70-110 H : Notified RN/MD: TESTED ([facility] [place] = 1538) [facility], [facility] 30: Senior Software Developer/Techni dipak ID = [id number] for TSEG GAI, TSIGHEREDA POCT-GLUCOSE [id number] 12:45:00 Test Item Value Reference Range Interpretation Comments POC-GLUCOSE METER 179 mg/dL 70-110 H : Notified RN/MD: TESTED ([facility]) (test code AT [place] [address] [address] = 1538) [facility], [facility] 30: Senior Software Developer/Techni dipak ID = [id number] for TSEG GAI, TSIGHEREDA POCT-GLUCOSE [id number] 08:05:00 Test Item Value Reference Range Interpretation Comments POC-GLUCOSE METER 129 mg/dL 70-110 H : TESTED A T [facility] 6720 ([facility]) (test code [facility], = 1538) 59394: Senior Software Developer/Techni dipak ID = [id number] for TSEG GAI, TSIGHEREDA POCT-GLUCOSE [id number] 17:07:00 Test Item Value Reference Range Interpretation Comments POC-GLUCOSE METER 163 mg/dL 70-110 H : TESTED A T [facility] 6720 (BEAKER) (test code = [facility], 1538) 45263: Senior Software Developer/Techni dipak ID = [id number] for HU NT, STEPHAN POCT-GLUCOSE [id number] 12:44:00 Test Item Value Reference Range Interpretation Comments POC-GLUCOSE METER 226 mg/dL 70-110 H : TESTED A T [facility] 6720 (BEAKER) (test code = [facility], 1538) 89144: Senior Software Developer/Techni dipak ID = [id number] for HU NT, STEPHAN POCT-GLUCOSE [id number] 22:13:00 Test Item Value Reference Range Interpretation Comments POC-GLUCOSE METER 155 mg/dL 70-110 H : TESTED A T [facility] 6720 (BEAKER) (test code = [facility], 1538) 21067: Senior Software Developer/Techni dipak ID = [id number] for SHEILA COMBS POCT-GLUCOSE [id number] 13:33:00 Test Item Value Reference Range Interpretation Comments POC-GLUCOSE METER 137 mg/dL 70-110 H : TESTED A T [facility] 6720 (BEAKER) (test code = [facility], 1538) 84637: Senior Software Developer/Techni dipak ID = [id number] for AK INSONU, DIDI POCT-GLUCOSE [id number] 08:50:00 Test Item Value Reference Range Interpretation Comments POC-GLUCOSE METER 166 mg/dL 70-110 H : TESTED A T [facility] 6720 (BEAKER) (test code = [facility], 1538) 70742: Senior Software Developer/Techni dipak ID = [id number] for AK INSONU, DIDI BASIC METABOLIC [id number] 06:53:00 Test Item Value Reference Range Interpretation Comments SODIUM (BEAKER) 141 meq/L 136-145 (test code = 381) POTASSIUM (BEAKER) 3.9 meq/L 3.5-5.1 (test code = 379) CHLORIDE (BEAKER) 105 meq/L 98-107 (test code = 382) CO2 (BEAKER) (test 29 meq/L 22-29 code = 355) BLOOD UREA NITROGEN 22 mg/dL 7-21 H (BEAKER) (test code = 354) CREATININE (BEAKER) 1.00 mg/dL 0.57-1.25 (test code = 358) GLUCOSE RANDOM 138 mg/dL 70-105 H (BEAKER) (test code = 652) CALCIUM (BEAKER) 9.4 mg/dL 8.4-10.2 (test code = 697) EGFR (BEAKER) (test 73 mL/min/1.73 ESTIMA CASSANDRA GFR IS code = 1092) sq m NOT ACCURATE CREATININE CLEARANCE IN PREDICTING GLOMERULAR FILTRATION RATE . ESTIMATED GFR I S NOT APPLICABLE FOR DIALYSIS PATIEN TS. Senior Software Developer ID - PIAYA LPOCT-GLUCOSE [id number] 21:20:00 Test Item Value Reference Range Interpretation Comments POC-GLUCOSE METER 173 mg/dL 70-110 H : TESTED A T [facility] 6720 (BEAKER) (test code = [facility], 1538) 28387: Senior Software Developer/Techni dipak ID = [id number] for DE NNIS, YISEL POCT-GLUCOSE [id number] 17:21:00 Test Item Value Reference Range Interpretation Comments POC-GLUCOSE METER 156 mg/dL 70-110 H : TESTED A T [facility] 6720 (BEAKER) (test code [facility], = 1538) 01195: Senior Software Developer/Techni dipak ID = [id number] for TSEG GAI, TSIGHEREDA POCT-GLUCOSE [id number] 12:55:00 Test Item Value Reference Range Interpretation Comments POC-GLUCOSE METER 170 mg/dL 70-110 H : Notified RN/MD: TESTED ([facility] = 1538) [facility], [facility] 30: Senior Software Developer/Techni dipak ID = [id number] for TSEG GAI, TSIGHEREDA POCT-GLUCOSE [id number] 07:45:00 Test Item Value Reference Range Interpretation Comments POC-GLUCOSE METER 129 mg/dL 70-110 H : TESTED A T [facility] 6720 (BEAKER) (test code [facility], = 1538) 24357: Senior Software Developer/Techni dipak ID = [id number] for TSEG GAI, TSIGHEREDA POCT-GLUCOSE [id number] 21:56:00 Test Item Value Reference Range Interpretation Comments POC-GLUCOSE METER 173 mg/dL 70-110 H : TESTED A T [facility] 6720 (BEAKER) (test code = LESLIE Mcmullen [facility], 1538) 29266: Senior Software Developer/Techni dipak ID = [id number] for DE NNIS, YISEL POCT-GLUCOSE [id number] 17:14:00 Test Item Value Reference Range Interpretation Comments POC-GLUCOSE METER 168 mg/dL 70-110 H : TESTED A T [facility] 6720 (BEAKER) (test code [facility], = 1538) 77538: Senior Software Developer/Techni dipak ID = [id number] for TSEG GAI, TSIGHEREDA POCT-GLUCOSE [id number] 12:19:00 Test Item Value Reference Range Interpretation Comments POC-GLUCOSE METER 193 mg/dL 70-110 H : Notified RN/MD: TESTED (BEAKER) (test code AT [facility] 6720 [facility] = 1538) [facility], [facility] 30: Senior Software Developer/Techni dipak ID = [id number] for SUSAN RANGEL POCT-GLUCOSE [id number] 08:48:00 Test Item Value Reference Range Interpretation Comments POC-GLUCOSE METER 140 mg/dL 70-110 H : TESTED A T [facility] 6720 ([place]) (test code [facility], = 1538) 50969: Senior Software Developer/Techni dipak ID = [id number] for SUSAN RANGEL [id number] 05:36:00 Test Item Value Reference Range Interpretation Comments MAGNESIUM (BEAKER) (test code = 1.9 mg/dL 1.6-2.6 627) Senior Software Developer ID - PIAYA LBASIC METABOLIC [id number] 05:36:00 Test Item Value Reference Range Interpretation Comments SODIUM (BEAKER) 138 meq/L 136-145 (test code = 381) POTASSIUM (BEAKER) 3.5 meq/L 3.5-5.1 (test code = 379) CHLORIDE (BEAKER) 105 meq/L 98-107 (test code = 382) CO2 (BEAKER) (test 23 meq/L 22-29 code = 355) BLOOD UREA NITROGEN 20 mg/dL 7-21 (BEAKER) (test code = 354) CREATININE (BEAKER) 0.94 mg/dL 0.57-1.25 (test code = 358) GLUCOSE RANDOM 138 mg/dL 70-105 H (BEAKER) (test code = 652) CALCIUM (BEAKER) 9.0 mg/dL 8.4-10.2 (test code = 697) EGFR (BEAKER) (test 79 mL/min/1.73 ESTIMA CASSANDRA GFR IS code = 1092) sq m NOT ACCURATE CREATININE CLEARANCE IN PREDICTING GLOMERULAR FILTRATION RATE . ESTIMATED GFR I S NOT APPLICABLE FOR DIALYSIS PATIEN TS. Senior Software Developer ID - PIAYA LPOCT-GLUCOSE [id number] 21:35:00 Test Item Value Reference Range Interpretation Comments POC-GLUCOSE METER 171 mg/dL 70-110 H : Notified RN/MD: ([place]) (test code = TESTED AT [facility] 6720 1538) [facility], 38398: Senior Software Developer/Techni dipak ID = [id number] for LATHBRIDGE, CHAPIS ICE POCT-GLUCOSE [id number] 17:33:00 Test Item Value Reference Range Interpretation Comments POC-GLUCOSE METER 189 mg/dL 70-110 H : TESTED A T [facility] 6720 (BEAKER) (test code = [facility], 1538) 66375: Senior Software Developer/Techni dipak ID = [id number] for GIO SANDOVAL POCT-GLUCOSE [id number] 12:14:00 Test Item Value Reference Range Interpretation Comments POC-GLUCOSE METER 132 mg/dL 70-110 H : TESTED A T [facility] 6720 (BEAKER) (test code = [facility], 1538) 32670: Senior Software Developer/Techni dipak ID = [id number] for MARYLU LUNDYONU, DIDI POCT-GLUCOSE [id number] 08:20:00 Test Item Value Reference Range Interpretation Comments POC-GLUCOSE METER 139 mg/dL 70-110 H : TESTED A T [facility] 6720 (BEAKER) (test code = [facility], 1538) 40834: Senior Software Developer/Techni dipak ID = [id number] for AK INSONU, DIDI [id number] 05:55:00 Test Item Value Reference Range Interpretation Comments MAGNESIUM (BEAKER) (test code = 1.9 mg/dL 1.6-2.6 627) Senior Software Developer ID - PIAYA LBASIC METABOLIC [id number] 05:55:00 Test Item Value Reference Range Interpretation Comments SODIUM (BEAKER) 138 meq/L 136-145 (test code = 381) POTASSIUM (BEAKER) 3.8 meq/L 3.5-5.1 (test code = 379) CHLORIDE (BEAKER) 106 meq/L 98-107 (test code = 382) CO2 (BEAKER) (test 24 meq/L 22-29 code = 355) BLOOD UREA NITROGEN 21 mg/dL 7-21 (BEAKER) (test code = 354) CREATININE (BEAKER) 0.97 mg/dL 0.57-1.25 (test code = 358) GLUCOSE RANDOM 132 mg/dL 70-105 H (BEAKER) (test code = 652) CALCIUM (BEAKER) 9.3 mg/dL 8.4-10.2 (test code = 697) EGFR (BEAKER) (test 76 mL/min/1.73 ESTIMA CASSANDRA GFR IS code = 1092) sq m NOT ACCURATE CREATININE CLEARANCE IN PREDICTING GLOMERULAR FILTRATION RATE . ESTIMATED GFR I S NOT APPLICABLE FOR DIALYSIS PATIEN TS. Senior Software Developer ID - PIAYA LCBC W/PLT COUNT & AUTO [id number] 05:13:00 Test Item Value Reference Range Interpretation Comments WHITE BLOOD CELL COUNT (BEAKER) 6.7 K/ L 3.5-10.5 (test code = 775) RED BLOOD CELL COUNT (BEAKER) 5.43 M/ L 4.63-6.08 (test code = 761) HEMOGLOBIN (BEAKER) (test code = 16.4 GM/DL 13.7-17.5 410) HEMATOCRIT (BEAKER) (test code = 49.7 % 40.1-51.0 411) MEAN CORPUSCULAR VOLUME (BEAKER) 91.5 fL 79.0-92.2 (test code = 753) MEAN CORPUSCULAR HEMOGLOBIN 30.2 pg 25.7-32.2 (BEAKER) (test code = 751) MEAN CORPUSCULAR HEMOGLOBIN CONC 33.0 GM/DL 32.3-36.5 (BEAKER) (test code = 752) RED CELL DISTRIBUTION WIDTH 12.9 % 11.6-14.4 (BEAKER) (test code = 412) PLATELET COUNT (BEAKER) (test 250 K/CU MM 150-450 code = 756) MEAN PLATELET VOLUME (BEAKER) 10.2 fL 9.4-12.4 (test code = 754) NUCLEATED RED BLOOD CELLS 0 /100 WBC 0-0 (BEAKER) (test code = 413) NEUTROPHILS RELATIVE PERCENT 67 % (BEAKER) (test code = 429) LYMPHOCYTES RELATIVE PERCENT 21 % (BEAKER) (test code = 430) MONOCYTES RELATIVE PERCENT 11 % (BEAKER) (test code = 431) EOSINOPHILS RELATIVE PERCENT 1 % (BEAKER) (test code = 432) BASOPHILS RELATIVE PERCENT 0 % (BEAKER) (test code = 437) NEUTROPHILS ABSOLUTE COUNT 4.48 K/ L 1.78-5.38 (BEAKER) (test code = 670) LYMPHOCYTES ABSOLUTE COUNT 1.37 K/ L 1.32-3.57 (BEAKER) (test code = 414) MONOCYTES ABSOLUTE COUNT (BEAKER) 0.72 K/ L 0.30-0.82 (test code = 415) EOSINOPHILS ABSOLUTE COUNT 0.07 K/ L 0.04-0.54 (BEAKER) (test code = 416) BASOPHILS ABSOLUTE COUNT (BEAKER) 0.03 K/ L 0.01-0.08 (test code = 417) IMMATURE GRANULOCYTES-RELATIVE 0 % 0-1 PERCENT (BEAKER) (test code = 2801) SARS-COV2/RT-PCR ([facility])2020-04-30 00:15:00 Test Item Value Reference Range Interpretation Comments SARS-COV2/RT-PCR (test code = Negative Not Detected, Negative 7821665) SARS-COV-2 PERFORMING LAB [facility] (test code = 0806120) Negative result for this test determines that SARS-CoV-2 RNA was not present in the specimen above the Limit of Detection (LOD). However, Negative results do not preclude SARS-CoV-2 infection and should not be used as the sole basis for treatment or patient management decisions. Negative results mustbe combined with clinical observations, patient history, and epidemiological information. A false negative result may occur if a specimen is improperly collected, transported or handled. A false negative result should be considered if patient's recent exposures or clinical presentation indicate that COVID-19 (SARS-CoV-2) is likely and diagnostic tests for other causes of illness are negative. Re-testing should be considered in cases of suspected false negatives.The limit of detection for this assay is 800 copies/mL.This SARS CoV-2 test is a real-time RT-PCR test intended for the qualitative detection of nucleic acid from SARS-CoV-2 in a nasopharyngeal swab specimen collected from individuals susp ected of COVID-19 by their healthcare provider.This test has not been Food and Drug Administration (FDA) cleared or approved. This is a modified version of an approved Emergency Use Authorization (EUA) and is in the process of review by the FDA. Once authorized by the FDA, the issued EUA will be effective until the declaration that circumstances exist justifying the authorization of the emergency use of in vitro diagnostic tests for detection and/or diagnosis of COVID-19 is terminated under Section 564(b)(2) of the Act or the EUA is revoked under Section 564(g) of the Act.Fact Sheet for Healthcare Providers:https://www.[employer]/sites/default/files/product/documents/Fact_Shee b_GK_Wbbmxedwp_Khbv_OMPO-RrG-0.pdfFact Sheet for Healthcare Patients:https://www.[employer]/sites/default/files/product/ documents/Laox_Emvyi_Wrzsoqzi_Lapm_UZWK-EjD-1.pdfPerforming Laboratory:[facility], [place] [address]VLHF-[id number] METER 2020-04-29 21:20:00 Test Item Value Reference Range Interpretation Comments POC-GLUCOSE METER 160 mg/dL 70-110 H : TESTED A T [facility] 6720 (BEAKER) (test code = LESLIE Mcmullen [facility], 1538) 40604: Senior Software Developer/Techni dipak ID = [id number] for CHAPIS SANTIAGO ICE CT, BRAIN, WITHOUT [id number] 18:34:00FINAL REPORT CT, BRAIN, WITHOUT CONTRAST INDICATION: Stroke, follow up TECHNIQUE: Noncontrast axial imaging was obtained from the vertex to the skull base. Axial images were reconstructed using a bone algorithm. DOSE REDUCTION: Dose modulation, iterative reconstruction, and/or weight-based adjustment of the mA/kV was utilized to reduce the radiation dose to as low as reasonably achievable. COMPARISON: CTA 04/26/2020, MRI 04/25/2020 FINDINGS: Intracranial: Evolving infarct involving the greater portion of the right lentiform nucleus without hemorrhagic conversion. No mass effect. No hydrocephalus. Osseous structures: No fracture. No suspicious lesion. Paranasal sinuses and mastoid air cells: No evidence of sinusitis. Mastoids are clear. Orbital contents: Globes are intact. 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 If there is persistent clinical concern for intracranial pathology, MR examination is recommended for further characterization. Signed: Emmy Nagy Verified Date/Time: 04/29/2020 18:34:09 -GLUCOSE [id number] 17:47:00 Test Item Value Reference Range Interpretation Comments POC-GLUCOSE METER 135 mg/dL 70-110 H : TESTED A T [facility] 6720 (BEAKER) (test code = RENEIN Kemi [facility], 1538) 81374: Senior Software Developer/Techni dipak ID = [id number] for Sm ith, Hetal RAD, CHEST, 1 VIEW, NON [id number] 16:52:00Reason for exam:->leukocytosis FINAL REPORT TECHNIQUE: Frontal view of the chest. INDICATION: Leukocytosis. COMPARISON: None. FINDINGS: LINES/TUBES: None. LUNGS: The lungs are well inflated and clear. No consolidation or pulmonary edema. Right paratracheal opacity is related to the mildly tortuous right subclavian and common carotid arteries demonstrated on recent CT angiogram. PLEURA: No pneumothorax or significant pleural effusion. HEART AND MEDIASTINUM: The cardiomediastinal silhouette is within normallimits. SOFT TISSUES AND BONES: Unremarkable.Surgical clips project over the upper abdomen related to prior cholecystectomy. IMPRESSION:No acute cardiopulmonary abnormalities. Signed: Lin Khan Verified Date/Time: 04/29/2020 16:52:04 Reading Location: [address] Transitional Reading Room POCT-GLUCOSE [id number] 12:26:00 Test Item Value Reference Range Interpretation Comments POC-GLUCOSE METER 174 mg/dL 70-110 H : TESTED A T [facility] 6720 (BEAKER) (test code = [facility], 1538) 12999: Senior Software Developer/Techni dipak ID = [id number] for Sm zafar, Hetal POCT-GLUCOSE [id number] 09:05:00 Test Item Value Reference Range Interpretation Comments POC-GLUCOSE METER 152 mg/dL 70-110 H : TESTED A T [facility] 6720 (BEAKER) (test code = [facility], 1538) 93575: Senior Software Developer/Techni dipak ID = [id number] for Sm ith, Hetal CBC W/PLT COUNT & AUTO [id number] 06:51:00 Test Item Value Reference Range Interpretation Comments WHITE BLOOD CELL COUNT (BEAKER) 13.9 K/ L 3.5-10.5 H (test code = 775) RED BLOOD CELL COUNT (BEAKER) 5.46 M/ L 4.63-6.08 (test code = 761) HEMOGLOBIN (BEAKER) (test code = 16.4 GM/DL 13.7-17.5 410) HEMATOCRIT (BEAKER) (test code = 50.0 % 40.1-51.0 411) MEAN CORPUSCULAR VOLUME (BEAKER) 91.6 fL 79.0-92.2 (test code = 753) MEAN CORPUSCULAR HEMOGLOBIN 30.0 pg 25.7-32.2 (BEAKER) (test code = 751) MEAN CORPUSCULAR HEMOGLOBIN CONC 32.8 GM/DL 32.3-36.5 (BEAKER) (test code = 752) RED CELL DISTRIBUTION WIDTH 12.9 % 11.6-14.4 (BEAKER) (test code = 412) PLATELET COUNT (BEAKER) (test 230 K/CU MM 150-450 code = 756) MEAN PLATELET VOLUME (BEAKER) 10.9 fL 9.4-12.4 (test code = 754) NUCLEATED RED BLOOD CELLS 0 /100 WBC 0-0 (BEAKER) (test code = 413) NEUTROPHILS RELATIVE PERCENT 90 % (BEAKER) (test code = 429) LYMPHOCYTES RELATIVE PERCENT 4 % (BEAKER) (test code = 430) MONOCYTES RELATIVE PERCENT 6 % (BEAKER) (test code = 431) EOSINOPHILS RELATIVE PERCENT 0 % (BEAKER) (test code = 432) BASOPHILS RELATIVE PERCENT 0 % (BEAKER) (test code = 437) NEUTROPHILS ABSOLUTE COUNT 12.54 K/ L 1.78-5.38 H (BEAKER) (test code = 670) LYMPHOCYTES ABSOLUTE COUNT 0.50 K/ L 1.32-3.57 L (BEAKER) (test code = 414) MONOCYTES ABSOLUTE COUNT (BEAKER) 0.81 K/ L 0.30-0.82 (test code = 415) EOSINOPHILS ABSOLUTE COUNT 0.00 K/ L 0.04-0.54 L (BEAKER) (test code = 416) BASOPHILS ABSOLUTE COUNT (BEAKER) 0.02 K/ L 0.01-0.08 (test code = 417) IMMATURE GRANULOCYTES-RELATIVE 0 % 0-1 PERCENT (BEAKER) (test code = 2801) BASIC METABOLIC [id number] 06:18:00 Test Item Value Reference Range Interpretation Comments SODIUM (BEAKER) 136 meq/L 136-145 (test code = 381) POTASSIUM (BEAKER) 3.4 meq/L 3.5-5.1 L (test code = 379) CHLORIDE (BEAKER) 105 meq/L 98-107 (test code = 382) CO2 (BEAKER) (test 20 meq/L 22-29 L code = 355) BLOOD UREA NITROGEN 19 mg/dL 7-21 (BEAKER) (test code = 354) CREATININE (BEAKER) 1.05 mg/dL 0.57-1.25 (test code = 358) GLUCOSE RANDOM 174 mg/dL 70-105 H ([facility]) (test code = 652) CALCIUM (BEAKER) 9.3 mg/dL 8.4-10.2 (test code = 697) [facility] (test 69 mL/min/1.73 ESTIMA CASSANDRA GFR IS code = 1092) sq m NOT ACCURATE CREATININE CLEARANCE IN PREDICTING GLOMERULAR FILTRATION RATE . ESTIMATED GFR I S NOT APPLICABLE FOR DIALYSIS PATIEN TS. Senior Software Developer ID - BSPOCT-GLUCOSE [id number] 21:20:00 Test Item Value Reference Range Interpretation Comments POC-GLUCOSE METER 155 mg/dL 70-110 H : Notified RN/MD: ([facility]) (test code = TESTED AT [facility] 6720 1537) [facility], [address]: Senior Software Developer/Techni dipak ID = [id number] for LATHBRIDGE, CHAPIS ICE POCT-GLUCOSE [id number] 16:38:00 Test Item Value Reference Range Interpretation Comments POC-GLUCOSE METER 165 mg/dL 70-110 H [facility] (test code = [facility], 153) 66180: Senior Software Developer/Techni dipak ID = [id number] for Sm ith, Hetal POCT-GLUCOSE [id number] 12:49:00 Test Item Value Reference Range Interpretation Comments POC-GLUCOSE METER 217 mg/dL 70-110 H : TESTED A T [facility] 6720 ([facility]) (test code = [facility], 153) 78514: Senior Software Developer/Techni dipak ID = [id number] for Sm ith, Hetal POCT-GLUCOSE [id number] 22:19:00 Test Item Value Reference Range Interpretation Comments POC-GLUCOSE METER 113 mg/dL 70-110 H : TESTED A T [facility] 6720 ([facility]) (test code = [facility], 1538) 53762: Senior Software Developer/Techni dipak ID = [id number] for DE JUAN YISEL POCT-GLUCOSE [id number] 19:01:00 Test Item Value Reference Range Interpretation Comments POC-GLUCOSE METER 116 mg/dL 70-110 H : TESTED A T [facility] 6720 (BEAKER) (test code = LESLIE Mcmullen [facility], 1538) 12100: Senior Software Developer/Techni dipak ID = [id number] for Gavino Gordono POCT-GLUCOSE [id number] 12:39:00 Test Item Value Reference Range Interpretation Comments POC-GLUCOSE METER 222 mg/dL 70-110 H : TESTED A T [facility] 6720 (BEAKER) (test code JODI [facility], = 1538) 24585: Senior Software Developer/Techni dipak ID = [id number] for SUSAN RANGEL SARS-COV2/RT-PCR ([facility])2020-04-27 11:24:00 Test Item Value Reference Range Interpretation Comments SARS-COV2/RT-PCR (test Negative Not Detected, code = 8942100) Negative SARS-COV-2 PERFORMING [facility] (test code = 2711665) The SARS CoV-2 test is intended for the qualitative detection of nucleic acids from SARS CoV-2 in respiratory samples. Negative results do not preclude SARS CoV-2 infection and should not be used as the sole basis for patietn management decisions. Negative results must be combined with clinical observations, patient history, and epidemiological information. Optimum specimen types and timing for peak viral levels during infections caused by SARS CoV-2 have not been determined. Collection of multiple specimens or types of specimens may be necessary to detect the virus. Improper specimen collection and handling, sequence variability under primers/probes, or organism present below the limit of detection may lead to false negative results. Positive or negative predictive values of testing are highly dependent on prevalence. False negative test results are more likely when prevalence is high. All samples have been processed in a CLIA certified laboratory. Testing was performed at the [facility]. This test has been authorized by the FDA under an Emergency Use Authorization (EUA). The test is only authorized for the duration of the declaration that circumstances exist justifying the authorization of emergency use of in-vitro diagnostic tests for detection and/or diagnosis of SARS-CoV-2.Unless Otherwise Indicated, All Testing Performed At:[facility] LaboratoryOne [place], [place] [address]Qkdnqbzfab Director: Juan Molina Number [id number] 2020-04-27 08:08:00 Test Item Value Reference Range Interpretation Comments POC-GLUCOSE METER 152 mg/dL 70-110 H : TESTED A T [facility] 6720 (BEAKER) (test code [facility], = 1538) [id number]: Senior Software Developer/Techni dipak ID = [id number] for TSEG GAI, TSIGHEREDA POCT-GLUCOSE [id number] 17:10:00 Test Item Value Reference Range Interpretation Comments POC-GLUCOSE METER 183 mg/dL 70-110 H : TESTED A T [facility] 6720 (BEAKER) (test code [facility], = 1538) [id number]: Senior Software Developer/Techni dipak ID = [id number] for TSEG GAI, TSIGHEREDA POCT-GLUCOSE [id number] 15:41:00 Test Item Value Reference Range Interpretation Comments POC-GLUCOSE METER 138 mg/dL 70-110 H : TESTED A T [facility] 6720 (BEAKER) (test code [facility], = 1538) [id number]: Senior Software Developer/Techni dipak ID = [id number] for TSEG GAI, TSIGHEREDA [id number] 14:20:00 Test Item Value Reference Range Interpretation Comments RPR SCREEN (AKER) (test code = Nonreactive Nonreactive 420) CT, CTANGIO [id number] 13:47:00Reason for exam:->Symptoms onset less than 6 hours and NIHSS [address], CAROTID, ANGIO, CT, CEREBRAL PERFUSION ANALYSIS, CT, CTANGIO BRAIN INDICATION: Neuro deficit, acute, stroke suspectedSymptoms onset less than 6 hours and NIHSS 6 or greater COMPARISON: Correlation to noncontrast head CT obtained concurrently, and noncontrast brain MRI April 25, 2020 TECHNIQUE: Rapid acquisition spiral images were obtained between the aortic arch and the cranial vertex during intravenous contrast infusion to reconstruct axial images and angiographic 3D maximum intensity projections (MIP) .Three dimensional reformatted images were created at a dedicated workstation. Perfusion imaging technique:Arterial input function: ACAVenous outflow function: TorcularSite of normal perfusion: Left anterior territory Stenosis evaluation reported in compliance with NASCET criteria. DOSE REDUCTION: Dose modulation, iterative reconstruction, and/or weight-based adjustment of the mA/kV was utilized to reduce the radiation dose to as low as reasonably achievable. 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 Severe narrowing of the left vertebral artery. 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 Posterior circulation is otherwise intact. Atherosclerotic disease results in multifocal narrowing in the petrous and cavernous internal carotid arteries bilaterally, right greater than left. Middle cerebral artery branches are opacified. Anterior cerebral arteries are patent. Opacification of the venous structures is unremarkable for bolus timing. CTA NECK:Arch anatomy demonstrates shared origin of the brachiocephalic and left common carotid arteries, representing normal variant. The most inferior portions of the image volume demonstrate descending aortic soft plaque. Additionally there is soft plaque along the medial surface of the left subclavian artery. There is focal narrowing of the right common carotid artery at the level of the bifurcation. Calcific atheroscleroticdisease is present bilaterally with less than 50% stenosis on either side by NASCET criteria. Vertebral arteries are patent throughout their cervical segments. The left vertebral artery is slightly dominant. CT PERFUSION PARAMETRIC MAPS:Cerebral blood volume and blood flow maps demonstrate core infarct in the region of the right luis radiata, compatible with the findings of the comparison examination. There is trace, asymmetric increased time to peak and transit time in the right hemisphere compared to the left, as well as inferiorly in the right luis radiata. Nonvascular findings:No acute findings within the limits of arterial phase imaging. IMPRESSION: Core infarct in the region identifiedin the prior CT and MRI. Faint, but present elevations in mean transit time and time to peak involving the right hemisphere and adjacent luis radiata. Atherosclerotic disease affecting the vascular structures with notable findings as follows:*Soft atherosclerotic plaque in the proximal descending aor ta and within the proximal left internal carotid artery*High-grade narrowing and near occlusion of the right vertebral artery beyond the dural breech*High-grade narrowing of the basilar artery at its mid segment*Atherosclerotic disease narrowing the skull base internal carotid arteries bilaterally, worse on the right*Atherosclerotic narrowing at the bifurcations, right greater than left, but with less than 50% narrowing by NASCET criteria. Signed: JR Pacheco Robert MDRepmonica Verified Date/Time: 04/26/2020 13:47:53 Reading Location: [facility] C013V Neuro Reading Room CT, CAROTID, [id number] 13:47:00Reason for exam:- >Symptoms onset less than 6 hours and NIHSS [address], CAROTID, ANGIO, CT, CEREBRAL PERFUSION ANALYSIS, CT, CTANGIO BRAIN INDICATION: Neuro deficit, acute, stroke suspectedSymptoms onset less than 6 hours and NIHSS 6 or greater COMPARISON: Correlation to noncontrast head CT obtained concurrently, and noncontrast brain MRI April 25, 2020 TECHNIQUE: Rapid acquisition spiral images were obtained between the aortic arch and the cranial vertex during intravenous contrast infusion to reconstruct axial images and angiographic 3D maximum intensity projections (MIP) .Three dimensional reformatted images were created at a dedicated workstation. Perfusion imaging technique:Arterial input function: ACAVenous outflow function: TorcularSite of normal perfusion: Left anterior territory Stenosis evaluation reported in compliance with NASCET criteria. DOSE REDUCTION: Dose modulation, iterative reconstruction, and/or weight-based adjustment of the mA/kV was utilized to reduce the radiation dose to as low as reasonably achievable. 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 Severe narrowing of the left vertebral artery. 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 Posterior circulation is otherwise intact. Atherosclerotic disease results in multifocal narrowing in the petrous and cavernous internal carotid arteries bilaterally, right greater than left. Middle cerebral artery branches are opacified. Anterior cerebral arteries are patent. Opacification of the venous structures is unremarkable for bolus timing. CTA NECK:Arch anatomy demonstrates shared origin of the brachiocephalic and left common carotid arteries, representing normal variant. The most inferior portions of the image volume demonstrate descending aortic soft plaque. Additionally there is soft plaque along the medial surface of the left subclavian artery. There is focal narrowing of the right common carotid artery at the level of the bifurcation. Calcific atheroscleroticdisease is present bilaterally with less than 50% stenosis on either side by NASCET criteria. Vertebral arteries are patent throughout their cervical segments. The left vertebral artery is slightly dominant. CT PERFUSION PARAMETRIC MAPS:Cerebral blood volume and blood flow maps demonstrate core infarct in the region of the right luis radiata, compatible with the findings of the comparison examination. There is trace, asymmetric increased time to peak and transit time in the right hemisphere compared to the left, as well as inferiorly in the right luis radiata. Nonvascular findings:No acute findings within the limits of arterial phase imaging. IMPRESSION: Core infarct in the region identifiedin the prior CT and MRI. Faint, but present elevations in mean transit time and time to peak involving the right hemisphere and adjacent luis radiata. Atherosclerotic disease affecting the vascular structures with notable findings as follows:*Soft atherosclerotic plaque in the proximal descending aor ta and within the proximal left internal carotid artery*High-grade narrowing and near occlusion of the right vertebral artery beyond the dural breech*High-grade narrowing of the basilar artery at its mid segment*Atherosclerotic disease narrowing the skull base internal carotid arteries bilaterally, worse on the right*Atherosclerotic narrowing at the bifurcations, right greater than left, but with less than 50% narrowing by NASCET criteria. Signed: JR Pacheco Robert MDReport Verified Date/Time: 04/26/2020 13:47:53 Reading Location: [address] Neuro Reading Room CT, CEREBRAL PERFUSION [id number] 13:47:00Reason for exam:->Symptom onset less than 6 hours and NIHSS [address], CAROTID, ANGIO, CT, CEREBRAL PERFUSION ANALYSIS, CT, CTANGIO BRAIN INDICATION: Neuro deficit, acute, stroke suspectedSymptoms onset less than 6 hours and NIHSS 6 or greater COMPARISON: Correlation to noncontrast head CT obtained concurrently, and noncontrast brain MRI April 25, 2020 TECHNIQUE: Rapid acquisition spiral images were obtained between the aortic arch and the cranial vertex during intravenous contrast infusion to reconstruct axial images and angiographic 3D maximum intensity projections (MIP) .Three dimensional reformatted images were created at a dedicated workstation. Perfusion imaging technique:Arterial input function: ACAVenous outflow function: TorcularSite of normal perfusion: Left anterior territory Stenosis evaluation reported in compliance with NASCET criteria. DOSE REDUCTION: Dose modulation, iterative reconstruction, and/or weight-based adjustment of the mA/kV was utilized to reduce the radiation dose to as low as reasonably achievable. 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 Severe narrowing of the left vertebral artery. 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 Posterior circulation is otherwise intact. Atherosclerotic disease results in multifocal narrowing in the petrous and cavernous internal carotid arteries bilaterally, right greater than left. Middle cerebral artery branches are opacified. Anterior cerebral arteries are patent. Opacification of the venous structures is unremarkable for bolus timing. CTA NECK:Arch anatomy demonstrates shared origin of the brachiocephalic and left common carotid arteries, representing normal variant. The most inferior portions of the image volume demonstrate descending aortic soft plaque. Additionally there is soft plaque along the medial surface of the left subclavian artery. There is focal na rrowing of the right common carotid artery at the level of the bifurcation. Calcific atheroscleroticdisease is present bilaterally with less than 50% stenosis on either side by NASCET criteria. Vertebral arteries are patent throughout their cervical segments. The left vertebral artery is slightly poonam nant. CT PERFUSION PARAMETRIC MAPS:Cerebral blood volume and blood flow maps demonstrate core infarct in the region of the right luis radiata, compatible with the findings of the comparison examination. There is trace, asymmetric increased time to peak and transit time in the right hemisphere compared to the left, as well as inferiorly in the right luis radiata. Nonvascular findings:No acute findings within the limits of arterial phase imaging. IMPRESSION: Core infarct in the region identifiedin the prior CT and MRI. Faint, but present elevations in mean transit time and time to peak involving the right hemisphere and adjacent luis radiata. Atherosclerotic disease affecting the vascular st ructures with notable findings as follows:*Soft atherosclerotic plaque in the proximal descending aorta and within the proximal left internal carotid artery*High-grade narrowing and near occlusion of the right vertebral artery beyond the dural breech*High-grade narrowing of the basilar artery at its mid segment*Atherosclerotic disease narrowing the skull base internal carotid arteries bilaterally, worse on the right*Atherosclerotic narrowing at the bifurcations, right greater than left, but with less than 50% narrowing by NASCET criteria. Signed: JR Pacheco Robert MDReport Verified Date/Time: 04/26/2020 13:47:53 Reading Location: [address] Neuro Reading Room CT, BRAIN, WITHOUT [id number] 13:19:00To rule out hemorrhagic transformationFINAL REPORT CT, BRAIN, WITHOUT CONTRAST CLINICAL INDICATION: Stroke, followup COMPARISON: Noncontrast brain MRI dated April 25, 2020 TECHNIQUE: Noncontrast axial CT imaging ofthe brain and skull. DOSE REDUCTION: Dose modulation, iterative reconstruction, and/or weight-basedadjustment of the mA/kV was utilized to reduce the radiation dose to as low as reasonably achievable. FINDINGS:Evolving right luis radiata infarct without hemorrhagic conversion. Remaining bates-whitedistinction is preserved. There is no midline shift or hydrocephalus. No abnormal extra-axial fluid is detected. Osseous structures are intact. IMPRESSION: Evolving right luis radiata infarct without hemorrhagic conversion. Signed: JR Pacheco Robert MDReport Verified Date/Time: 04/26/2020 13:19:55 Reading Location: [address] Neuro Reading Room -GLUCOSE [id number] 08:52:00 Test Item Value Reference Range Interpretation Comments POC-GLUCOSE METER 181 mg/dL 70-110 H : Notified RN/MD: TESTED (BEAKER) (test code AT [facility] [address] = 1538) [facility], [facility] 30: Senior Software Developer/Techni dipak ID = [id number] for SUSAN RANGEL BASIC METABOLIC [id number] 07:30:00 Test Item Value Reference Range Interpretation Comments SODIUM (BEAKER) 138 meq/L 136-145 (test code = 381) POTASSIUM (BEAKER) 4.0 meq/L 3.5-5.1 Specimen slightly (test code = 379) hemolyzed CHLORIDE (BEAKER) 105 meq/L 98-107 (test code = 382) CO2 (BEAKER) (test 25 meq/L 22-29 code = 355) BLOOD UREA NITROGEN 13 mg/dL 7-21 (BEAKER) (test code = 354) CREATININE (BEAKER) 0.93 mg/dL 0.57-1.25 Specimen slightly (test code = 358) hemolyzed GLUCOSE RANDOM 181 mg/dL 70-105 H (BEAKER) (test code = 652) CALCIUM (BEAKER) 9.0 mg/dL 8.4-10.2 (test code = 697) EGFR (BEAKER) (test 80 mL/min/1.73 ESTIMA CASSANDRA GFR IS code = 1092) sq m NOT ACCURATE CREATININE CLEARANCE IN PREDICTING GLOMERULAR FILTRATION RATE . ESTIMATED GFR I S NOT APPLICABLE FOR DIALYSIS PATIEN TS. Senior Software Developer ID - NTPPOCT-GLUCOSE [id number] 00:02:00 Test Item Value Reference Range Interpretation Comments POC-GLUCOSE METER 171 mg/dL 70-110 H : TESTED A T [facility] 6720 ([employer]) (test code = uSpeakIN Project Manager [facility], 1538) [id number]: Senior Software Developer/Techni dipak ID = [id number] for TR AN, SOFI POCT-GLUCOSE [id number] 18:17:00 Test Item Value Reference Range Interpretation Comments POC-GLUCOSE METER 216 mg/dL 70-110 H : TESTED A T [facility] 6720 ([employer]) (test code = [facility], 1538) [id number]: Senior Software Developer/Techni dipak ID = [id number] for INA NT, STEPHAN POCT-GLUCOSE [id number] 13:35:00 Test Item Value Reference Range Interpretation Comments POC-GLUCOSE METER 219 mg/dL 70-110 H : TESTED A T [facility] 6720 ([employer]) (test code = [facility], 1538) [address]: Senior Software Developer/Techni dipak ID = [id number] for Xu Leggett MR, MRA, BRAIN, WITHOUT [id number] 12:57:00Reason for exam:->Ischemic Stroke EvaluationFINAL REPORT MRA Head CLINICAL HISTORY: Stroke TECHNIQUE: MRA of the head utilizing 3-D pffo-xu-chvtfe technique, with 3-D reconstructions. COMPARISON: None FINDINGS: There is noevidence for a [place] large vessel occlusion. There is moderate right and mild left internal carotid artery siphon stenosis. There is severe stenosis of the bilateral intradural vertebral arteries and basilar artery. There are moderate stenoses of the bilateral posterior cerebral arteries. There is mild stenosis of the left middle cerebral artery. There is moderate stenosis of the proximal right anterior cerebral artery. No aneurysms are seen. IMPRESSION: No evidence for a large vessel occlusion. Multifocal intracranial atherosclerotic disease, including severe posterior circulation stenosis. MRA Neck CLINICAL HISTORY: Stroke TECHNIQUE: MRA of the neck utilizing 2-D and 3-D qcal-iz-nnxrul technique, with 3-D reconstructions. COMPARISON: None FINDINGS: There is mild atherosclerotic disease of the bilateral carotid verification without hemodynamically significant stenosis by NASCET criteria. There is antegrade flow in the vertebral arteries in the neck. IMPRESSION: No evidence of hem odynamically significant stenosis in the cervical carotid or vertebral arteries by NASCET criteria. Signed: Tameka Barrettort Verified Date/Time: 04/25/2020 12:57:55 Reading Location: [address] Neuro Reading Room MR, MRA, NECK, WITHOUT IV [id number] 12:57:00Reason for exam:->Ischemic Stroke EvaluationFINAL REPORT MRA Head CLINICAL HISTORY: Stroke TECHNIQUE: MRA of the head utilizing 3-D tdeg-qz-dzfelg technique, with 3-D reconstructions. COMPARISON: None FINDINGS: There is noevidence for a [place] large vessel occlusion. There is moderate right and mild left internal carotid artery siphon stenosis. There is severe stenosis of the bilateral intradural vertebral arteries and basilar artery. There are moderate stenoses of the bilateral posterior cerebral arteries. There is mild stenosis of the left middle cerebral artery. There is moderate stenosis of the proximal right anterior cerebral artery. No aneurysms are seen. IMPRESSION: No evidence for a large vessel occlusion. Multifocal intracranial atherosclerotic disease, including severe posterior circulation stenosis. MRA Neck CLINICAL HISTORY: Stroke TECHNIQUE: MRA of the neck utilizing 2-D and 3-D ejti-rs-bvjcvo technique, with 3-D reconstructions. COMPARISON: None FINDINGS: There is mild atherosclerotic disease of the bilateral carotid verification without hemodynamically significant stenosis by NASCET criteria. There is antegrade flow in the vertebral arteries in the neck. IMPRESSION: No evidence of hem odynamically significant stenosis in the cervical carotid or vertebral arteries by NASCET criteria. Signed: Tameka Barrett MDReport Verified Date/Time: 04/25/2020 12:57:55 Reading Location: [address] Neuro Reading Room MR, BRAIN, WITHOUT [id number] 12:24:00Reason for exam:->Ischemic Stroke EvaluationFINAL REPORT MRI Brain without contrast Clinical History: Stroke Technique: MRI of the brain utilizing axial T2, FLAIR, GRE, DWI; sagittal and coronal T1-weighted images. Comparisons: None Findings: There is an acute infarct of the right posterior corpus striatum. There are chronic infarcts of the right greater than left caudate nuclei. There are small focal encephalomalacia ofthe left superior frontal gyrus. There is no acute hemorrhage. There is mild periventricular and subcortical white matter T2 hyperintensity, which is nonspecific but compatible with chronic microvascular ischemic change. There is mild generalized parenchymal volume loss without hydrocephalus, midlineshift, or apparent mass effect. There are no extra-axial fluid collections. The craniocervical junction is preserved. The major intracranial flow-voids appear patent. IMPRESSION: Acute infarct of the right posterior corpus striatum without hemorrhage. Chronic lacunar infarcts of the left greater thanright caudate nuclei. Left superior frontal gyrus small encephalomalacia. Signed: Tameka Barrett MDReport Verified Date/Time: 04/25/2020 12:24:13 Reading Location: [address] Neuro Reading Room HEMOGLOBIN [id number] 09:27:00 Test Item Value Reference Range Interpretation Comments HEMOGLOBIN A1C (BEAKER) (test code = 9.3 % 4.3-6.1 H 368) Senior Software Developer ID - [id number]-GLUCOSE [id number] 09:02:00 Test Item Value Reference Range Interpretation Comments POC-GLUCOSE METER 215 mg/dL 70-110 H : TESTED A T [facility] 6720 (BEAKER) (test code = [place]LIE NUNE[place], 1538) [id number]: Senior Software Developer/Techni dipak ID = [id number] for HU NT, STEPHAN VITAMIN B12 AND [id number] 08:33:00 Test Item Value Reference Range Interpretation Comments VITAMIN B12 (BEAKER) (test code = 435 pg/mL 213-816 774) FOLATE (BEAKER) (test code = 362) 19.20 ng/mL >=7.00 Senior Software Developer ID Michelet UNGER [id number] 07:44:00 Test Item Value Reference Range Interpretation Comments HOMOCYSTEINE (BEAKER) (test code = 8.7 umol/L 5.1-15.4 642) Senior Software Developer ID Michelet UNGER LTSH/FREE T4 IF [id number] 07:44:00 Test Item Value Reference Range Interpretation Comments THYROID STIMULATING HORMONE 2.233 uIU/mL 0.350-4.940 (BEAKER) (test code = 772) Senior Software Developer ID Michelet UNGER LTROPONIN [id number] 04:10:00 Test Item Value Reference Range Interpretation Comments TROPONIN I (AURELIAAKER) (test code = 397) < ng/mL 0.00-0.03 Troponin I (TnI) levels must be interpreted in the context of the presenting symptoms and the clinical findings. Elevated TnI levels indicate myocardial damage, but are not specific for ischemic heart disease. Elevated TnI levels are seen in patients with other cardiac conditions (including myocarditis and congestive heart failure), and slight TnI elevations occur in patients with other conditions, including sepsis, renal failure, acidosis, acute neurological disease, and persistent tachyarrhythmia.Senior Software Developer ID Michelet UNGER LLIPID PANEL 2020-04-25 04:04:00 Test Item Value Reference Range Interpretation Comments TRIGLYCERIDES (BEAKER) (test code = 244 mg/dL 540) CHOLESTEROL (BEAKER) (test code = 266 mg/dL 631) HDL CHOLESTEROL (BEAKER) (test code 37 mg/dL = 976) LDL CHOLESTEROL CALCULATED (TakeLessonsAKER) 180 mg/dL (test code = 633) Triglyceride Reference Range: Low Risk <150 Borderline 150-199 High Risk 200-499 Very High Risk >=500Cholesterol Reference Range: Low Risk <200 Borderline 200-239 High Risk >240HDL Cholesterol Reference Range: Low Risk >=60 High Risk <40LDL Cholesterol Reference Range: Optimal <100 Near Optimal 100-129 Borderline 130-159 High 160-189 Very High >=190 Senior Software Developer ID - PIAYALBASIC METABOLIC [id number] 04:04:00 Test Item Value Reference Range Interpretation Comments SODIUM (BEAKER) 136 meq/L 136-145 (test code = 381) POTASSIUM (BEAKER) 3.6 meq/L 3.5-5.1 (test code = 379) CHLORIDE (BEAKER) 102 meq/L 98-107 (test code = 382) CO2 (BEAKER) (test 26 meq/L 22-29 code = 355) BLOOD UREA NITROGEN 10 mg/dL 7-21 (BEAKER) (test code = 354) CREATININE (BEAKER) 0.96 mg/dL 0.57-1.25 (test code = 358) GLUCOSE RANDOM 191 mg/dL 70-105 H (BEAKER) (test code = 652) CALCIUM (BEAKER) 9.1 mg/dL 8.4-10.2 (test code = 697) EGFR (BEAKER) (test 77 mL/min/1.73 ESTIMA CASSANDRA GFR IS code = 1092) sq m NOT ACCURATE CREATININE CLEARANCE IN PREDICTING GLOMERULAR FILTRATION RATE . ESTIMATED GFR I S NOT APPLICABLE FOR DIALYSIS PATIEN TS. Senior Software Developer ID - PIAYA LHEPATIC FUNCTION [id number] 04:04:00 Test Item Value Reference Range Interpretation Comments TOTAL PROTEIN (BEAKER) (test code = 7.1 gm/dL 6.0-8.3 770) ALBUMIN (BEAKER) (test code = 1145) 4.0 g/dL 3.5-5.0 BILIRUBIN TOTAL (BEAKER) (test code 0.9 mg/dL 0.2-1.2 = 377) BILIRUBIN DIRECT (BEAKER) (test 0.3 mg/dL 0.1-0.5 code = 706) ALKALINE PHOSPHATASE (BEAKER) (test 71 U/L 40-150 code = 346) AST (SGOT) (BEAKER) (test code = 9 U/L 5-34 353) ALT (SGPT) (BEAKER) (test code = 11 U/L 6-55 347) Senior Software Developer ID - PIAYA LC-REACTIVE [id number] 04:04:00 Test Item Value Reference Range Interpretation Comments C-REACTIVE PROTEIN (BEAKER) (test 0.19 mg/dL 0.00-0.50 code = 676) Senior Software Developer ID - PIAYA LPROTHROMBIN [id number] 03:47:00 Test Item Value Reference Range Interpretation Comments PROTIME (BEAKER) (test code = 13.6 seconds 11.9-14.2 759) INR (BEAKER) (test code = 370) 1.1 <=5.9 Effective 03/26/2019: PT Reference Range ChangeNew: 11.9-14.2 Previous: 11.7- 14.7RECOMMENDED COUMADIN/WARFARIN INR THERAPY RANGESSTANDARD DOSE: 2.0-3.0 Includes: PROPHYLAXIS for venous thrombosis, systemic embolization; TREATMENT for venous thrombosis and/or pulmonary embolus.HIGH RISK: Target INR is2.5-3.5 for patients wiht mechanical heart valves.CBC W/PLT COUNT & AUTO [id number] 03:40:00 Test Item Value Reference Range Interpretation Comments WHITE BLOOD CELL COUNT (BEAKER) 7.5 K/ L 3.5-10.5 (test code = 775) RED BLOOD CELL COUNT (BEAKER) 5.06 M/ L 4.63-6.08 (test code = 761) HEMOGLOBIN (BEAKER) (test code = 15.2 GM/DL 13.7-17.5 410) HEMATOCRIT (BEAKER) (test code = 45.5 % 40.1-51.0 411) MEAN CORPUSCULAR VOLUME (BEAKER) 89.9 fL 79.0-92.2 (test code = 753) MEAN CORPUSCULAR HEMOGLOBIN 30.0 pg 25.7-32.2 (BEAKER) (test code = 751) MEAN CORPUSCULAR HEMOGLOBIN CONC 33.4 GM/DL 32.3-36.5 (BEAKER) (test code = 752) RED CELL DISTRIBUTION WIDTH 12.5 % 11.6-14.4 (BEAKER) (test code = 412) PLATELET COUNT (BEAKER) (test 219 K/CU MM 150-450 code = 756) MEAN PLATELET VOLUME (BEAKER) 10.8 fL 9.4-12.4 (test code = 754) NUCLEATED RED BLOOD CELLS 0 /100 WBC 0-0 (BEAKER) (test code = 413) NEUTROPHILS RELATIVE PERCENT 62 % (BEAKER) (test code = 429) LYMPHOCYTES RELATIVE PERCENT 26 % (BEAKER) (test code = 430) MONOCYTES RELATIVE PERCENT 10 % (BEAKER) (test code = 431) EOSINOPHILS RELATIVE PERCENT 2 % (BEAKER) (test code = 432) BASOPHILS RELATIVE PERCENT 1 % (BEAKER) (test code = 437) NEUTROPHILS ABSOLUTE COUNT 4.61 K/ L 1.78-5.38 (BEAKER) (test code = 670) LYMPHOCYTES ABSOLUTE COUNT 1.93 K/ L 1.32-3.57 (BEAKER) (test code = 414) MONOCYTES ABSOLUTE COUNT (BEAKER) 0.72 K/ L 0.30-0.82 (test code = 415) EOSINOPHILS ABSOLUTE COUNT 0.13 K/ L 0.04-0.54 (BEAKER) (test code = 416) BASOPHILS ABSOLUTE COUNT (BEAKER) 0.04 K/ L 0.01-0.08 (test code = 417) IMMATURE GRANULOCYTES-RELATIVE 0 % 0-1 PERCENT (BEAKER) (test code = 2801)"
[2022-01-31] MEDS ORDERED: CLINDAMYCIN 900MG/D5W 900 MG/50 ML IVPB IV ONE (18:51)
--- NOTE | 2022-01-31 19:27 | ER ---
Nurse's Notes [facility] Name: Apple Howe Age: 76 yrs Sex: Male : 1945 Arrival Date: 01/31/2022 Time: 17:28 Bed 16 Private MD: Diagnosis: Periapical abscess without sinus Presentation: 01/31 18:05 Chief complaint: Patient states: he was sent by his dentist for IV antibiotics for an ap3 infection in a right lower tooth. patient states he has had swelling and pain in a right lower tooth for 2 days. Coronavirus screen: At this time, the client does not indicate any symptoms associated with coronavirus-19. Ebola Screen: No symptoms or risks identified at this time. Initial Sepsis Screen: Does the patient meet any 2 criteria? No. Patient's initial sepsis screen is negative. Does the patient have a suspected source of infection? No. Patient's initial sepsis screen is negative. Risk Assessment: Do you want to hurt yourself or someone else? Patient reports no desire to harm self or others. Onset of symptoms was January 29, 2022. 18:05 Method Of Arrival: Wheelchair ap3 18:05 Acuity: CAROLE 3 ap3 Triage Assessment: 18:07 General: Appears in no apparent distress. Behavior is calm, cooperative, appropriate ap3 for age. Pain: Complains of pain in right jaw Pain currently is 5 out of 10 on a pain scale. EENT: Poor dentition noted. Neuro: Level of Consciousness is awake, alert, obeys commands, Oriented to person, place, time, situation, Appropriate for age. Cardiovascular: Patient's skin is warm and dry. Respiratory: Airway is patent Respiratory effort is even, unlabored, Respiratory pattern is regular, symmetrical. Musculoskeletal: Swelling present in right jaw. Historical: - Allergies: 18:06 No Known Allergies; ap3 - Home Meds: 18:06 unknown medication for blood pressure [Active]; ap3 - PMHx: 18:06 Hypertension; Cerebrovascular accident; Hypertensive disorder; Hypercholesterolemia; ap3 - Immunization history:: Client reports receiving the 2nd dose of the Covid vaccine, Flu vaccine is up to date. - Social history:: Smoking status: Patient denies any tobacco usage or history of. Screenin:08 Abuse screen: Denies threats or abuse. Nutritional screening: No deficits noted. ap3 Tuberculosis screening: No symptoms or risk factors identified. 19:33 Fall Risk None identified. as6 Assessment: 19:21 General: Appears in no apparent distress. as6 Vital Signs: 18:05 BP 137 / 83; Pulse 100; Resp 17; Temp 97.9; Pulse Ox 100% ; Weight 70.31 kg; Height 5 ap3 ft. 3 in. (160.02 cm); Pain 5/10; 19:29 BP 176 / 90; Pulse 102; Resp 18 S; Pulse Ox 100% on R/A; as6 18:05 Body Mass Index 27.46 (70.31 kg, 160.02 cm) ap3 ED Course: 17:28 Patient arrived in ED. as 18:06 Triage completed. ap3 18:08 Arm band placed on right wrist. ap3 18:14 Woody Darnell NP is PHCP. pm1 18:14 Linda Morales MD is Attending Physician. pm1 18:17 Nita Cooley RN is Primary Nurse. ww 18:51 Patient has correct armband on for positive identification. Call light in reach. Adult ww w/ patient. 18:51 Inserted saline lock: 20 gauge in right antecubital area, using aseptic technique. ww 19:19 Primary Nurse role handed off by Nita Cooley, BLANCA mw2 19:21 Rip Gill RN is Primary Nurse. as6 19:33 No provider procedures requiring assistance completed. IV discontinued, intact, as6 bleeding controlled, No redness/swelling at site. Pressure dressing applied. Administered Medications: 18:50 Drug: Clindamycin 900 mg Route: IVPB; Infused Over: 30 mins; Site: right antecubital; ww 19:21 Follow up: Response: No adverse reaction; IV Status: Completed infusion; IV Intake: [id number] Intake: 19:21 IV: 50ml; Total: 50ml. as6 Outcome: 19:26 Discharge ordered by . pm1 19:33 Discharged to home via wheelchair, with family. as6 19:33 Condition: stable 19:33 Discharge instructions given to patient, family, Instructed on discharge instructions, follow up and referral plans. medication usage, Demonstrated understanding of instructions, follow-up care, medications, Prescriptions given X 1. 19:33 Patient left the ED. as6 Signatures: Alexa Orozco as Woody Darnell NP [employer] pm1 Kim Ayala, RN RN ap3 Meet Gray mw2 Rip Gill, RN RN as6 Nita Cooley, RN RN ww
--- NOTE | 2022-01-31 19:27 | EDPHYS ---
Physician Documentation [facility] Name: Apple Howe Age: 76 yrs Sex: Male : 1945 Arrival Date: 01/31/2022 Time: 17:28 Bed 16 Private MD: ED Physician Linda Morales HPI: 01/31 18:32 This 76 yrs old Male presents to ER via Wheelchair with complaints of Facial pm1 Swelling. 18:32 Associated signs and symptoms: Pertinent negatives: fever, shortness of breath, sore pm1 throat. Patient seen by his dentist and sent to the ER for infusion of IV antibiotics. Patient was given a prescription for clindamycin per dentist. Patient with right lower molar pain and swelling to right facial area for 2 days. Historical: - Allergies: 18:06 No Known Allergies; ap3 - Home Meds: 18:06 unknown medication for blood pressure [Active]; ap3 - PMHx: 18:06 Hypertension; Cerebrovascular accident; Hypertensive disorder; Hypercholesterolemia; ap3 - Immunization history:: Client reports receiving the 2nd dose of the Covid vaccine, Flu vaccine is up to date. - Social history:: Smoking status: Patient denies any tobacco usage or history of. ROS: 18:32 Constitutional: Negative for fever, chills, and weight loss. pm1 18:32 Cardiovascular: Negative for chest pain, palpitations, and edema, Respiratory: Negative for shortness of breath, cough, wheezing, and pleuritic chest pain, MS/Extremity: Negative for injury and deformity, Skin: Negative for injury, rash, and discoloration, Neuro: Negative for headache, weakness, numbness, tingling, and seizure. 18:32 ENT: Positive for dental pain, Negative for sore throat. 18:32 All other systems are negative. Exam: 18:32 Constitutional: This is a well developed, well nourished patient who is awake, alert, pm1 and in no acute distress. Head/Face: Normocephalic, atraumatic. 18:32 Back: No spinal tenderness. No costovertebral tenderness. Full range of motion. Skin: Warm, dry with normal turgor. Normal color with no rashes, no lesions, and no evidence of cellulitis. MS/ Extremity: Pulses equal, no cyanosis. Neurovascular intact. Full, normal range of motion. 18:32 ENT: Mouth: no acute changes, Lips: normal, Oral mucosa: normal, pink and intact, Dental exam: dental caries, that is moderate, specifically in the lower right first molar (#30). 18:32 Cardiovascular: Exam negative for acute changes, Rate: normal, Rhythm: regular, Pulses: no pulse deficits are appreciated. 18:32 Respiratory: Exam negative for acute changes, respiratory distress, shortness of breath, Breath sounds: are clear throughout. 18:32 Neuro: Exam negative for acute changes, Orientation: is normal, Mentation: is normal, Motor: is normal, moves all fours. Vital Signs: 18:05 BP 137 / 83; Pulse 100; Resp 17; Temp 97.9; Pulse Ox 100% ; Weight 70.31 kg; Height 5 ap3 ft. 3 in. (160.02 cm); Pain 5/10; 19:29 BP 176 / 90; Pulse 102; Resp 18 S; Pulse Ox 100% on R/A; as6 18:05 Body Mass Index 27.46 (70.31 kg, 160.02 cm) ap3 MDM: 18:14 Patient medically screened. pm1 19:23 Data reviewed: vital signs. Data interpreted: Pulse oximetry: on room air is 100 %. pm1 Interpretation: normal. Counseling: I had a detailed discussion with the patient and/or guardian regarding: the historical points, exam findings, and any diagnostic results supporting the discharge/admit diagnosis, the need for outpatient follow up, for definitive care, a dentist, to return to the emergency department if symptoms worsen or persist or if there are any questions or concerns that arise at home. 01/31 18:32 Order name: IV Saline Lock; Complete Time: 18:42 pm1 Administered Medications: 18:50 Drug: Clindamycin 900 mg Route: IVPB; Infused Over: 30 mins; Site: right antecubital; 19:21 Follow up: Response: No adverse reaction; IV Status: Completed infusion; IV Intake: [id number] Disposition Summary: 01/31/22 19:26 Discharge Ordered Location: Home pm1 Problem: new pm1 Symptoms: have improved pm1 Condition: Stable pm1 Diagnosis - Periapical abscess without sinus pm1 Followup: pm1 - With: Emergency Department - When: As needed - Reason: Worsening of condition Followup: pm1 - With: Private Physician - When: 2 - 3 days - Reason: Recheck today's complaints, Continuance of care, Re-evaluation by your physician Discharge Instructions: - Discharge Summary Sheet pm1 - Dental Abscess pm1 - Dental Pain pm1 - Diet and Dental Disease pm1 Forms: - Medication Reconciliation Form pm1 - Thank You Letter pm1 - Antibiotic Education pm1 - Prescription Opioid Use pm1 Prescriptions: - Clindamycin HCl 300 mg Oral Capsule - take 1 capsule by ORAL route every 6 hours for 10 days; 40 capsule; Refills: 0, pm1 Product Selection Permitted Signatures: Woody Darnell NP PROFESSOR OF GEOLOGY pm1 Kim Ayala RN RN ap3 Nita Cooley RN RN ww Rip Gill RN as6
[2022-02-01 09:04] VITALS: TEMP 97.9; O2SAT 100
[2022-02-01 09:05] VITALS: BP 176/90
== END 2022-01-31 19:33 | disposition home or self-care (01) ==
LOC: ER 17:27
DX: K04.7 Periapical abscess without sinus (principal); I10 Essential (primary) hypertension; Z86.73 Personal history of transient ischemic attack (TIA), and cerebral infarction without residual deficits
CPT/HCPCS: 96365; 99283